=== PATIENT | female | born 1980 | race Caucasian/White ===

== ENCOUNTER 2020-04-14 12:02 | Emergency (ER) | payer MEDICARE, MEDICAID, SELFPAY ==
--- NOTE | ~2020-04-14 | CT_ITS ---
EXAMINATION: CT abdomen pelvis w con DATE: 04/14/2020 14:22 INDICATION: Left upper quadrant abdominal pain TECHNIQUE: Computed tomography (CT) of the abdomen and pelvis was performed with 100 mL Omnipaque-350 intravenous contrast. Automated exposure control and iterative reconstruction technique were employe d. The dose-length product was 491.24 mGy-cm. COMPARISON: 02/20/2018 FINDINGS: Lung bases are clear. Heart size is normal. No pericardial or pleural effusion. Cholecystectomy clips the gallbladder fossa. Liver, spleen, pancreas, right adrenal gland and left kidney are normal. Unch anged 1.3 cm left adrenal adenoma with diagnostic low-attenuation prior noncontrast CT. 6 mm cyst at the mid right kidney. There are few scattered colonic diverticula without adjacent from 3 change to s uggest diverticulitis. Small bowel and appendix are normal. 12 mm nabothian cyst at the cervix. Bladd er, anteverted uterus and bilateral ovaries are unremarkable. Likely bilateral tubal ligation rings a t the adnexa. No free intraperitoneal gas or fluid. No pathologically enlarged abdominal or pelvic ly mphadenopathy. Mild lower thoracic spondylosis. IMPRESSION: 1. No acute intra-abdominal/pelvic process. Reviewed, dictated and finalized at location B.
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
[2020-04-14 12:52] LABS: Basophils Absolute Auto 0.1 K/mm3 (0.0-0.1); Basophils Percent Auto 0.9 % (0.2-1.2); Eosinophils Absolute Auto 0.1 K/mm3 (0-0.3); Eosinophils Percent Auto 1.4 % (0-4.4); Hematocrit 37.7 % (37.0-47.0); Hemoglobin 12.5 g/dL (12.0-15.0); Immature Granulocyte Absolute 0.02 K/mm3 (0.00-0.031); Immature Granulocyte Percent A 0.2 % (0-0.5); Lymphocytes Absolute Auto 2.27 K/mm3 (0.9-3.2); Lymphocytes Percent Auto 25.9 % (18.3-44.2); Mean Corpuscular HGB Conc 33.2 g/dl (32-36); Mean Corpuscular Hemoglobin 30.6 pg (26-34); Mean Corpuscular Volume 92.2 fl (80-100); Mean Platelet Volume 10.3 fl (7.4-10.4); Monocytes Absolute Auto 0.6 K/mm3 (0.1-0.6); Monocytes Percent Auto 7.1 % (2.6-8.5); Neutrophils Absolute Auto 5.7 K/mm3 (1.3-6.7); Neutrophils Percent Auto 64.5 % (45.5-73.1); Platelet Count Result 334 k/mm3 (150-375); Red Blood Count 4.09 M/mm3 (4.2-5.4); Red Cell Distribution Width 14.5 % (11.5-14.5); White Blood Count 8.8 K/mm3 (4.5-10.0)
[2020-04-14 12:54] VITALS: BP 97/65; PULSE 114; RESP 18; TEMP 36.9; O2SAT 100
[2020-04-14] MEDS: SODIUM CHLORIDE 0.9% IV 1,000 ML 999 ML IV CONT (12:54)
[2020-04-14 13:05] LABS: Alanine Aminotransferase 23 U/L (4-35); Albumin Level 4.5 g/dL (3.5-5.1); Alkaline Phosphatase 67 U/L (38-126); Anion Gap 8 mmol/L (8-16); Aspartate Amino Transferase 26 U/L (14-36); Bilirubin,Total 0.4 mg/dL (0.2-1.3); Blood Urea Nitrogen 14 mg/dL (7-17); Calcium 9.2 mg/dL (8.4-10.2); Carbon Dioxide 20 mmol/L (22-30); Chloride 112 mmol/L (98-107); Estimated CRCL calculation 95 ml/min; Estimated Glomerular Filt Rate > 60; Glucose 101 mg/dL (65-105); Lipase 150 U/L (23-300); Potassium 3.8 mmol/L (3.4-5.0); Sodium 140 mmol/L (137-145)
[2020-04-14 13:06] LABS: INR 1.1; Prothrombin Time 13.7 Seconds (11.1-14.7)
[2020-04-14 13:07] LABS: Partial Thromboplastin Time 31.4 SECONDS (22.3-36.8)
[2020-04-14 15:04] LABS: Add Urine Microscopic? YES; Appearance Urine Cloudy (Clear); Bacteria Urine 4+ /hpf; Bilirubin Urine Negative (Negative); Blood Urine 2+ (Negative); Color Urine Yellow (Yellow); Glucose Urine UA Negative (Negative); Ketones Urine Negative (Negative); Leukocyte Esterase Ur 3+ LEU/UL (Negative); Mucus Urine Few /lpf; Nitrate Urine Positive (Negative); Protein Urine 1+ mg/dL (Negative); Squamous Epithelial Cell Urine Many /hpf (Few); Urobilinogen Urine Negative mg/dL (<2.0); WBC Urine 51-75 /hpf
[2020-04-14 15:05] LABS: Specific Grav Ur > 1.060 (1.001-1.035)
[2020-04-14] MEDS: DICYCLOMINE HCL 10 MG CAPSULE 20 MG PO (15:10)
[2020-04-14 15:29] LABS: Amphetamine Screen Urine Negative (Negative); Barbiturate Screen Urine Negative (Negative); Benzodiazepines Screen Urine Negative (Negative); Cannabinoid Screen Urine Positive (Negative); Cocaine Screen Urine Negative (Negative); Methadone Screen Urine Negative (Negative); Opiate Screen Urine Negative (Negative); Phencyclidine Screen Urine Negative (Negative)
== END 2020-04-14 15:12 | disposition home or self-care (01) ==
PROVIDERS: Emergency Provider Emergency Medicine; PCP Family Medicine
DX: R10.12 Left upper quadrant pain (principal); M79.7 Fibromyalgia
CPT/HCPCS: 36415; 74177; 80053; 80307; 81001; 81025; 83690; 85025; 85610; 85730; 87077; 87086; 87088; 87186; 96360; 96361; 99284; A9270; J7030; Q9967

== ENCOUNTER 2021-01-12 12:08 | Emergency (ER) | payer MEDICARE, MEDICAID, SELFPAY ==
[2021-01-12 12:14] VITALS: BP 102/70; PULSE 114; RESP 16; TEMP 36.2; O2SAT 100
[2021-01-12 12:33] LABS: Basophils Absolute Auto 0.1 K/mm3 (0.0-0.1); Basophils Percent Auto 0.8 % (0.2-1.2); Eosinophils Absolute Auto 0.3 K/mm3 (0-0.3); Eosinophils Percent Auto 1.9 % (0-4.4); Hematocrit 35.2 % (37.0-47.0); Hemoglobin 11.3 g/dL (12.0-15.0); Immature Granulocyte Absolute 0.07 K/mm3 (0.00-0.031); Immature Granulocyte Percent A 0.5 % (0-0.5); Lymphocytes Absolute Auto 2.19 K/mm3 (0.9-3.2); Lymphocytes Percent Auto 15.6 % (18.3-44.2); Mean Corpuscular HGB Conc 32.1 g/dl (32-36); Mean Corpuscular Hemoglobin 28.2 pg (26-34); Mean Corpuscular Volume 87.8 fl (80-100); Mean Platelet Volume 10.7 fl (7.4-10.4); Monocytes Percent Auto 6.9 % (2.6-8.5); Neutrophils Absolute Auto 10.4 K/mm3 (1.3-6.7); Neutrophils Percent Auto 74.3 % (45.5-73.1); Platelet Count Result 448 k/mm3 (150-375); Red Blood Count 4.01 M/mm3 (4.2-5.4)
[2021-01-12 12:43] LABS: Alanine Aminotransferase 13 U/L (4-35); Albumin Level 4.4 g/dL (3.5-5.1); Alkaline Phosphatase 81 U/L (38-126); Anion Gap 12 mmol/L (8-16); Aspartate Amino Transferase 20 U/L (14-36); Bilirubin,Total 0.5 mg/dL (0.2-1.3); Blood Urea Nitrogen 12 mg/dL (7-17); Calcium 9.8 mg/dL (8.4-10.2); Carbon Dioxide 19 mmol/L (22-30); Chloride 111 mmol/L (98-107); Estimated CRCL calculation 94 ml/min; Estimated Glomerular Filt Rate > 60; Glucose 99 mg/dL (65-105); Lipase 78 U/L (23-300); Potassium 3.9 mmol/L (3.4-5.0); Sodium 142 mmol/L (137-145)
[2021-01-12 13:55] VITALS: BP 110/45; PULSE 104; RESP 17; TEMP 36.4; O2SAT 100
[2021-01-12 15:12] LABS: Add Urine Microscopic? YES; Appearance Urine Cloudy (Clear); Bacteria Urine Trace /hpf; Bilirubin Urine Negative (Negative); Blood Urine 1+ (Negative); Color Urine Amber (Yellow); Glucose Urine UA Negative (Negative); Ketones Urine Negative (Negative); Leukocyte Esterase Ur 2+ LEU/UL (Negative); Mucus Urine Few /lpf; Nitrate Urine Positive (Negative); Protein Urine 2+ mg/dL (Negative); Specific Grav Ur 1.024 (1.001-1.035); Squamous Epithelial Cell Urine Few /hpf (Few); WBC Urine >75 /hpf
[2021-01-12] MEDS: ONDANSETRON INJ 4 MG/2 ML VIAL IV PUSH (16:18)
[2021-01-12] MEDS: LACTATED RINGERS 1,000 ML 999 ML IV CONT (16:19)
--- NOTE | 2021-01-12 17:01 | ED.ABDPAIN ---
HPI - Abdominal Pain General Chief Complaint: Abdominal Pain Stated Complaint: n/v Time Seen by Provider: 01/12/21 14:41 Source: patient Mode of arrival: ambulatory Limitations: no limitations History of Present Illness HPI narrative: 40-year-old female She complains of being ill for about a week She initially had nausea and vomiting for about 3days which is resolved however she still has a poor appetite feels generally unwell and has some end of diffuse right-sided abdominal discomfort She has previously had a cholecystectomy She does not have diarrhea or constipation, she does not have hematuria, she does not have dysuria, and she does not have a fever Related Data Allergies Allergy/AdvReac Type Severity Reaction Status Date / Time morphine Allergy Unknown Verified 02/26/18 12:15 Review of Systems Review of Systems: All systems reviewed & are unremarkable except as noted in HPI and below Constitutional: Constitutional: Reports no additional constitutional complaints, Denies chills, Reports fatigue, Denies fever(s), Denies headache(s) and Reports weakness Eyes: Eyes: Reports no additional eye complaints and Denies change in vision ENT: Denies headache(s) and Denies sore throat Cardiovascular: Cardiovascular: Denies chest pain and Denies dyspnea Respiratory: Respiratory: Denies cough and Denies dyspnea Gastrointestinal: Gastrointestinal: Reports abdominal pain, Denies diarrhea, Reports nausea and Reports vomiting Genitourinary: Genitourinary: Denies hematuria, Denies urinary frequency and Denies dysuria Musculoskeletal: Musculoskeletal: Denies deformity, Denies arthralgias, Denies joint swelling and Denies numbness Integumentary/Breasts: Skin/Breast: Denies rash and Denies wounds Neurologic: Denies headache(s), Denies focal weakness and Denies numbness Psychiatric: Psychiatric: Reports no additional psychiatric complaints Endocrine: Endocrine: Reports no additional endocrine complaints Hematologic/Lymphatic: Hematologic/Lymphatic: Reports no additional hematologic/lymphatic complaints Allergic/Immunologic: Allergic/Immunologic: Reports no additional allergic/immunologic complaints [facility] Past Medical History Medical History (Updated 01/12/21 @ 17:05 by Adan Melendez MD) Depression with anxiety Fibromyalgia Surgical History Surgical History Hx of cholecystectomy Social History Social History Gender identity (if verbalized by the patient): Female Exam Const: General: cooperative, healthy appearing, no acute distress and alert Orientation/consciousness: patient oriented x3 (alert) HENMT: Head: normal to inspection, normocephalic and atraumatic Ears: external ears normal General nose exam: no epistaxis Eyes: Conjunctivae: conjunctivae normal EOM: EOMs intact bilaterally Neck: Neck: normal visual inspection, supple and no JVD Resp: Effort & Inspection: normal respiratory effort Auscultation: clear to auscultation bilaterally and other (BS =) Cardio: Rate: regular rate Rhythm: regular rhythm Heart sounds: no murmurs GI: GI Palp: Yes Soft to palpation, Yes Tenderness to palpation present (GI) (Right upper quadrant subcostal ), No Guarding due to palpation present (GI) and No Rebound tenderness present : General: Yes CVA tenderness (Pretty mild right-sided CVA tenderness) Skin: General skin exam: normal color and no rashes or lesions noted Neuro: General: patient oriented x3 (alert) and moves all extremities Speech: normal speech Extrem: General: normal to inspection and no pedal edema Psych: Affect: normal affect Course Course Emergency Course: Examined evaluation most consistent with pyelonephritis Improved after treatment, able to keep down p.o.'s, should be okay for outpatient treatment Vital Signs Vital signs: Vital Signs Temperature 36.2 C L 06/
[2021-01-12 17:17] VITALS: BP 115/64; PULSE 88; RESP 17; O2SAT 100
== END 2021-01-12 17:20 | disposition home or self-care (01) ==
PROVIDERS: Emergency Medicine; Emergency Provider Emergency Medicine; PCP Family Medicine
DX: N12 Tubulo-interstitial nephritis, not specified as acute or chronic (principal); M79.7 Fibromyalgia
CPT/HCPCS: 36415; 80053; 81001; 81025; 83690; 85025; 87086; 87088; 96365; 96375; 99284; J0696; J2405; J7120

== ENCOUNTER 2021-04-03 11:45 | Outpatient (CLI) | payer OTHER, SELFPAY ==
--- NOTE | ~2021-04-03 | XR_ITS ---
EXAMINATION: XR abdomen obstructive series DATE: 04/03/2021 12:22 INDICATION: Right abdominal pain. TECHNIQUE: Upright and supine views of the abdomen on 3 radiographs were obtained. COMPARISON: CT abdomen and pelvis 04/14/2020 FINDINGS: There are no dilated loops of bowel. There is a large volume of stool in the colon. No free intraperitoneal gas. Surgical clips in the right upper quadrant are likely from cholecystectomy. IMPRESSION: 1. Nonobstructive bowel gas pattern. Reviewed, dictated and finalized at location A.
--- NOTE | ~2021-04-03 | XR_ITS ---
EXAMINATION: XR chest 2V DATE: 04/03/2021 12:22 INDICATION: Chest pain. Abdominal pain. TECHNIQUE: Frontal and lateral views of the chest were obtained. COMPARISON: Chest 2 views 02/20/2018, CT abdomen and pelvis 04/14/2020 FINDINGS: The chest demonstrates clear lungs without pneumonia, pleural effusion, or pneumothorax. Th e heart size is normal. Surgical clips in the right upper quadrant are likely from cholecystectomy. IMPRESSION: 1. No acute cardiopulmonary disease. Reviewed, dictated and finalized at location A.
== END 2021-04-03 11:46 | disposition home or self-care (01) ==
PROVIDERS: PCP Family Medicine; Visit Provider Family Medicine
DX: R10.9 Unspecified abdominal pain (principal); R07.9 Chest pain, unspecified
CPT/HCPCS: 71046; 74019

== ENCOUNTER 2022-06-28 11:51 | Outpatient (CLI) | payer MEDICAID, SELFPAY ==
--- NOTE | ~2022-06-28 | MMUS_ITS ---
EXAMINATION: MM diagnostic turner RT w luz, US breast RT complete HISTORY: Palpable right periareolar breast abnormality. TECHNIQUE: Additional 3-D tomosynthesis images of the right breast were performed and synthetic 2-D i mages were generated. CAD analysis was submitted and interpreted. High resolution complete right elio st ultrasound was performed. COMPARISON: None BREAST PARENCHYMAL COMPOSITION: The breasts are heterogeneously dense, which may obscure small masses FINDINGS: MAMMOGRAPHIC FINDINGS: There are no suspicious masses, calcifications or architectural distortion in the right breast to sug gest malignancy. ULTRASOUND: Complete right breast US of all 4 quadrants of the breasts and retroareolar region was reviewed. Norm al heterogeneous echotexture without focal solid or cystic mass. IMPRESSION: 1. No evidence for malignancy in the right breast. 2. Routine yearly screening mammogram and regular clinical breast examination are recommended. BI-RADS Category 1: Negative Reviewed, dictated and finalized at location A. MAKER IMPRESSION: 1. No evidence for malignancy in the right breast. 2. Routine yearly screening mammogram and regular clinical breast examination a re recommended. BI-RADS Category 1: Negative
== END 2022-06-28 11:52 | disposition home or self-care (01) ==
PROVIDERS: PCP Family Medicine; Visit Provider Family Medicine
DX: N63.10 Unspecified lump in the right breast, unspecified quadrant (principal)
CPT/HCPCS: 76641; 77061; 77065; G0279

== ENCOUNTER 2023-02-06 13:58 | Outpatient (CLI) | payer OTHER, SELFPAY ==
--- NOTE | ~2023-02-06 | CT_ITS ---
EXAMINATION: CT abdomen wo con DATE: 02/06/2023 14:47 INDICATION: Left adrenal mass TECHNIQUE: Computed tomography (CT) of the abdomen was performed without intravenous contrast. The do se-length product (DLP) was 262.34 mGy-cm. Automated exposure control and iterative reconstruction te nique were employed. COMPARISON: 04/14/2020 FINDINGS: The lung bases are clear. The heart size is normal. The liver, spleen, pancreas, and right adrenal gland are normal. There is a stable 1.4 cm low-attenuation mass of the left adrenal gland, co nsistent with an adenoma. The gallbladder is surgically absent. The kidneys are unremarkable. There a re no pathologically enlarged abdominal lymph nodes. A moderate volume of colonic stool is present. IMPRESSION: 1. Stable left adrenal adenoma. Reviewed, dictated and finalized at location []
== END 2023-02-06 13:59 | disposition home or self-care (01) ==
PROVIDERS: PCP Family Medicine; Visit Provider Family Medicine
DX: E27.8 Other specified disorders of adrenal gland (principal); D35.02 Benign neoplasm of left adrenal gland
CPT/HCPCS: 74150

== ENCOUNTER 2024-01-22 17:13 | Observation (INO) | payer OTHER, SELFPAY ==
--- NOTE | ~2024-01-22 | CT_ITS ---
CT abdomen pelvis wo con Ordering provider: Ara Moya PA-C History: . concern for L kidney stone . Comparison: February 06, 2023 Technique: CT abdomen without IV and without oral contrast. Radiation reduction technique utilized. Findings: VISUALIZED LOWER CHEST: Normal. UPPER ABDOMINAL ORGANS: Liver: Normal. Gallbladder: Status post cholecystectomy.Minimal fat stranding anterior and inferior to the duodenum with adjacent slightly enlarged lymph nodes Spleen: Normal. Stomach/duodenum: Normal. Pancreas: Hypodense lesion in the body of the pancreas measuring 9.8 x 2.1 cm. Follow-up advised. Adrenals: Left adrenal adenoma measuring 2 x 1.6 cm. Kidneys: Tiny stone in the right kidney upper pole. Urinary bladder: Underfilled. Uterus: Normal. VISUALIZED BOWEL AND MESENTERY: No evidence of diverticulitis. Normal appendix. The bowel is otherwis e normal. No free air or free fluid. Small mesenteric lymph nodes are noted. RETROPERITONEUM: Normal aorta. No retroperitoneal lymphadenopathy. MUSCULOSKELETAL: The superficial soft tissues are normal. Normal spine. IMPRESSION: Fat stranding anterior to the duodenum and inferior to the stomach which may indicate duodenitis, duo denal ulcer or pancreatitis. Clinical evaluation advised. Hypodense lesion in the body of the pancreas. MRI evaluation advised. Left adrenal adenoma. Unchanged from previous examination. Tiny stone in the right kidney upper pole. Reviewed, dictated and finalized at location A. IMPRESSION: Fat stranding anterior to the duodenum and inferior to the stomach which may in dicate duodenitis, duodenal ulcer or pancreatitis. Clinical evaluation advised. Hypodense lesion in the body of the pancreas. MRI evaluation advised. Left adrenal adenoma. Unchanged from previous examination. Tiny stone in the right kidney upper pole.
--- NOTE | ~2024-01-22 | MR_ITS ---
EXAMINATION: MR MRCP wo/w con/w 3D wo ind DATE: 01/23/2024 14:15 INDICATION: Pancreatic lesion on CT TECHNIQUE: Magnetic resonance imaging (MRI) of the abdomen was performed without and with 15 mL Multi sun intravenous contrast. Sequences included coronal T2-weighted SS-FSE, coronal T2-weighted FS SS- FSE, coronal T2-weighted FS FIESTA, axial T2-weighted FS FIESTA, axial T2-weighted FIESTA, sagittal T 2-weighted SS-FSE, axial T1-weighted dual-echo FSPGR, axial T2-weighted SS-FSE, axial T1-weighted LAV A, axial T2-weighted STIR FSE. Thick-slab T2-weighted FRFSE-XL images were obtained for magnetic reso nance cholangiopancreatography (MRCP). Rotating maximum intensity projection 3-D reconstructions of t he volumetric data were created by the technologist. Postcontrast sequences included a time course of axial T1-weighted LAVA. COMPARISON: CT dated 01/22/2024 FINDINGS: ABDOMEN MRI: Heart size is normal. No pericardial or pleural effusion. Magnetic field artifact associated with cho lecystectomy clips at the gallbladder fossa. Liver, spleen and right adrenal gland are normal. 1.8 cm left adrenal adenoma as demonstrated by ultrasound lipid with signal dropout on opposed phase imagin g. Bilateral kidneys are normal. Pancreas is normal. No correlate for the hypodense region in the bod y of the pancreas seen on prior CT which when correlated with sagittal and coronal images appears to result from a band of streak artifact. Bladder, uterus and bowels are normal including a normal appen connor. No pathologically enlarged abdominal or pelvic lymphadenopathy. T1 hyperintense fat saturating h emangioma at T11. Otherwise normal bone marrow signal throughout. ABDOMEN MRCP: Normal caliber common bile duct measuring 6 mm in maximal diameter. The intrahepatic biliary tree is also normal. No evident choledocholithiasis. IMPRESSION: 1. Normal pancreas. No correlate for the hypodense lesion on prior CT which on review of the coronal and sagittal reconstructed images appears most likely to represent a band of streak artifact. Reviewed, dictated and finalized at location A.
[2024-01-22 17:16] VITALS: BP 121/57; PULSE 104; RESP 20; TEMP 36.4; O2SAT 100
[2024-01-22 17:34] LABS: Basophils Absolute Auto 0.1 K/mm3 (0.0-0.1); Basophils Percent Auto 0.7 % (0.2-1.2); Eosinophils Absolute Auto 0.1 K/mm3 (0-0.3); Hematocrit 30.5 % (37.0-47.0); Hemoglobin 9.2 g/dL (12.0-15.0); Immature Granulocyte Absolute 0.05 K/mm3 (0.00-0.031); Immature Granulocyte Percent A 0.3 % (0-0.5); Lymphocytes Absolute Auto 4.34 K/mm3 (0.9-3.2); Lymphocytes Percent Auto 30.3 % (18.3-44.2); Mean Corpuscular HGB Conc 30.2 g/dl (32-36); Mean Corpuscular Hemoglobin 22.9 pg (26-34); Mean Corpuscular Volume 75.9 fl (80-100); Mean Platelet Volume 10.3 fl (7.4-10.4); Monocytes Absolute Auto 1.2 K/mm3 (0.1-0.6); Monocytes Percent Auto 8.2 % (2.6-8.5); Neutrophils Absolute Auto 8.5 K/mm3 (1.3-6.7); Neutrophils Percent Auto 59.5 % (45.5-73.1); Platelet Count Result 579 k/mm3 (150-375); Red Blood Count 4.02 M/mm3 (4.2-5.4); Red Cell Distribution Width 21.4 % (11.5-14.5); White Blood Count 14.3 K/mm3 (4.5-10.0)
[2024-01-22 17:45] LABS: Alanine Aminotransferase 11 U/L (6-35); Albumin Level 4.5 g/dL (3.5-5.1); Alkaline Phosphatase 76 U/L (38-126); Anion Gap 13 mmol/L (4-12); Aspartate Amino Transferase 17 U/L (14-36); Bilirubin,Total 0.4 mg/dL (0.2-1.3); Blood Urea Nitrogen 12 mg/dL (7-17); Calcium 9.6 mg/dL (8.4-10.2); Carbon Dioxide 17 mmol/L (22-30); Chloride 112 mmol/L (98-107); Estimated CRCL calculation 91 ml/min; Estimated Glomerular Filt Rate > 60; Glucose 104 mg/dL (65-110); Lipase 158 U/L (23-300); Potassium 3.1 mmol/L (3.4-5.0); Sodium 142 mmol/L (137-145)
--- NOTE | 2024-01-22 18:13 | ED.ABDPAIN ---
HPI - Abdominal Pain General Chief Complaint: Urogenital-Female <Ara Moya PA-C - Last Filed: 01/22/24 21:57> Stated Complaint: abd pain, UTI symptoms <Ara Moya PA-C - Last Filed: 01/22/24 21:57> Time Seen by Provider: 01/22/24 17:29 <Ara Moya PA-C - Last Filed: 01/22/24 21:57> History of Present Illness HPI narrative: 43-year-old female with a history of fibromyalgia, hypokalemia, depression, anxiety and kidney stones presents to the emergency department for low back pain, urinary frequency and urinary urgency. Patient states she has had frequency and urgency for about a week. She called her PCP and was prescribed Macrobid which she has been taking since 01/13 without improvement. Yesterday and today she began developing significant pain in her left flank which prompted her to come to the ED today. States she thinks she may have a kidney stone. She is currently on her menstrual cycle. She denies dysuria, known fever but does report chills and sweats secondary to pain. Is reporting some pain in the left upper quadrant of her abdomen as well. She is complaining of nausea but no emesis. <Ara Moya PA-C - Last Filed: 01/22/24 21:57> Related Data Home Medications: Home Medications Medication Instructions Recorded Confirmed alprazolam 1 mg tablet 1 mg PO QID PRN Anxiety 01/22/24 01/22/24 amitriptyline 50 mg tablet 50 mg PO DAILY 01/22/24 01/22/24 odachwn-vabkzzsxtesmy-wgjgssmm 250 1 tablet PO Q4-6H PRN migrane 01/22/24 01/22/24 mg-250 mg-65 mg tablet (Excedrin Migraine) cyclobenzaprine 10 mg tablet 10 mg PO TID 01/22/24 01/22/24 famotidine 40 mg tablet (Pepcid) 40 mg PO DAILY 01/22/24 01/22/24 fluoxetine 40 mg capsule 40 mg PO DAILY 01/22/24 01/22/24 hydrocodone 5 mg-acetaminophen 325 5 - 325 tablet PO BID PRN Pain 01/22/24 01/22/24 mg tablet <Ara Moya PA-C - Last Filed: 01/22/24 21:57> Allergies/Adverse Reactions: Allergies Allergy/AdvReac Type Severity Reaction Status Date / Time morphine Allergy Unknown Verified 02/26/18 12:15 <Ara Moya PA-C - Last Filed: 01/22/24 21:57> Review of Systems Review of Systems: CONSTITUTIONAL: Denies fever, chills, or sweats. EYES: Denies visual changes, redness, or discharge. ENT: Denies rhinorrhea, congestion, sore throat, or otalgia. CARDIOVASCULAR: Denies chest pain, palpitations, or edema. RESPIRATORY: Denies cough or dyspnea. GASTROINTESTINAL: See HPI GENITOURINARY: see HPI SKIN: Denies rash or itching. MUSCULOSKELETAL: Denies back pain, joint pain, or myalgia. NEUROLOGIC: Denies headache, numbness, or weakness. PSYCHIATRIC: Denies anxiety or depression. <Ara Moya PA-C - Last Filed: 01/22/24 21:57> [facility] Past Medical History Medical History: Medical History (Updated 01/23/24 @ 10:51 by Angelica Peña APRN) Depression with anxiety Fibromyalgia <Ara Moya PA-C - Last Filed: 01/22/24 21:57> Surgical History Surgical History: Surgical History Hx of cholecystectomy <Ara Moya PA-C - Last Filed: 01/22/24 21:57> Social History Social History: Social History Smoking packs per day: 0.5 Smoking cigarettes per day: 10.0 Smoking status: Current every day smoker Tobacco type: cigarettes Alcohol intake: never Substance use: current Substance use type: marijuana Last use: 01/22/24 Do You Feel Safe in your Home?: Yes Lack of Transportation: No Lack of Food: Never True Current Housing: I Have Housing Concerned About Future Housing: No Difficulty Paying Gas/Electric Bills: No Difficulty Paying for Meds: No Currently Unemployed: No Education: Trade/Vocational Certificate Difficulty w/ Childcare or Family Care: No Gender identity (if verbalized by the patient): Female Spi
[2024-01-22 18:27] LABS: Magnesium 1.9 mg/dL (1.6-2.3)
[2024-01-22] MEDS: HYDROmorphone HCL INJ (*CRX) 1 MG/ML SYR IV PUSH (18:27)
[2024-01-22] MEDS: SODIUM CHLORIDE 0.9% IV 1,000 ML 999 ML IV CONT (18:27)
[2024-01-22] MEDS: ONDANSETRON INJ 4 MG/2 ML VIAL IV PUSH (18:27)
[2024-01-22 18:31] LABS: Appearance Urine Cloudy (Clear); Bacteria Urine None Seen /hpf; Bilirubin Urine Negative (Negative); Blood Urine 3+ (Negative); Glucose Urine UA Negative (Negative); Ketones Urine Negative (Negative); Leukocyte Esterase Ur 2+ LEU/UL (Negative); Need Manual Microscopic Reviewed; Nitrate Urine Negative (Negative); Non Pathogenic Casts 0-2; Protein Urine 1+ mg/dL (Negative); RBC Urine >100 /hpf (0-2); Specific Grav Ur 1.013 (1.001-1.035); Squamous Epithelial Cell Urine None Seen /hpf (Few); Urobilinogen Urine 0.2 mg/dL (<2.0); WBC Urine 51-100 /hpf (0-3)
[2024-01-22 18:33] LABS: Add Urine Microscopic? YES; Color Urine Light Red (Yellow)
[2024-01-22 19:31] VITALS: BP 126/68; PULSE 68; RESP 18; O2SAT 98
[2024-01-22 20:46] VITALS: BP 135/62; PULSE 84; RESP 16; O2SAT 97
[2024-01-22] MEDS: POTASSIUM CHLORIDE INJ 40 MEQ in SODIUM CHLORIDE 0.9% IV 500 ML 130 MEQ IVPB (21:24)
[2024-01-22] MEDS: PANTOPRAZOLE SODIUM IV 40 MG VIAL IV PUSH ×2 (21:25→22:14)
[2024-01-22 21:36] VITALS: BP 126/60; PULSE 88; RESP 14; O2SAT 99
[2024-01-22 21:40] LABS: Lactic Acid Reflex 0.8 mmol/L (0.7-2.0)
--- NOTE | 2024-01-22 21:55 | PM.IMHP ---
H&P: HPI History of Present Illness Date/Time: 01/22/24 21:55 Chief Complaint: epigastric pain Narrative: this is a 43-year-old female with past medical history significant for fibromyalgia, depression with anxiety, tobacco dependence. Patient presents to the emergency room with epigastric pain for several months now states that for days out of the week she is in pain, she denies any nausea vomiting she denies any coffee-ground emesis hematemesis bright red blood per rectum or melena pain is localized in the epigastric area with radiation to the back patient has had significant weight loss of roughly 30 lb in a month or so due to per poor per orally intake due to abdominal pain. Preliminary workup was significant for CT of abdomen and pelvis with duodenitis. Urinalysis was significant for numerous WBCs 50-100 per high-power field. Patient is been admitted for further evaluation management and treatment. CT abdomen pelvis wo con Ordering provider: Ara Moya PA-C History: . concern for L kidney stone . Comparison: February 06, 2023 Technique: CT abdomen without IV and without oral contrast. Radiation reduction technique utilized. Findings: VISUALIZED LOWER CHEST: Normal. UPPER ABDOMINAL ORGANS: Liver: Normal. Gallbladder: Status post cholecystectomy.Minimal fat stranding anterior and inferior to the duodenum with adjacent slightly enlarged lymph nodes Spleen: Normal. Stomach/duodenum: Normal. Pancreas: Hypodense lesion in the body of the pancreas measuring 9.8 x 2.1 cm. Follow-up advised. Adrenals: Left adrenal adenoma measuring 2 x 1.6 cm. Kidneys: Tiny stone in the right kidney upper pole. Urinary bladder: Underfilled. Uterus: Normal. VISUALIZED BOWEL AND MESENTERY: No evidence of diverticulitis. Normal appendix. The bowel is otherwise normal. No free air or free fluid. Small mesenteric lymph nodes are noted. RETROPERITONEUM: Normal aorta. No retroperitoneal lymphadenopathy. MUSCULOSKELETAL: The superficial soft tissues are normal. Normal spine. IMPRESSION: Fat stranding anterior to the duodenum and inferior to the stomach which may indicate duodenitis, duodenal ulcer or pancreatitis. Clinical evaluation advised. Hypodense lesion in the body of the pancreas. MRI evaluation advised. Left adrenal adenoma. Unchanged from previous examination. Tiny stone in the right kidney upper pole. Review of Systems Review of Systems: epigastric pain with radiation to the back, weight loss. Constitutional: Constitutional: Denies chills, Reports fatigue, Denies fever(s), Denies night sweats, Reports poor appetite, Reports weakness and Reports weight loss Eyes: Eyes: Denies change in vision ENT: Denies dysphagia, Denies vertigo, Denies dizziness, Denies nasal congestion, Denies nasal discharge and Denies odynophagia Cardiovascular: Cardiovascular: Denies chest pain, Denies radiating jaw, neck or arm pain and Denies palpitations Respiratory: Respiratory: Denies cough, Denies excessive phlegm production and Denies dyspnea Gastrointestinal: Gastrointestinal: Reports abdominal pain, Denies melena, Denies hematochezia, Denies coffee ground emesis, Denies dyspepsia, Denies heartburn, Denies diarrhea, Denies nausea and Denies vomiting Genitourinary: Genitourinary: Denies dysuria Musculoskeletal: Musculoskeletal: Denies myalgias Integumentary/Breasts: Skin/Breast: Reports system reviewed and no additional complaints, except as docu and Reports as per HPI Neurologic: Denies focal weakness and Denies Sensory deficit (Neuro) Psychiatric: Psychiatric: Reports no additional psychiatric complaints and Reports as per HPI Endocrine: Endocrine: Denies cold intolerance, Denies heat intolerance, Denies polyphagia, Denies polydipsia and Denies polyuria Hematologic/Lymphatic: Hematologic/Lymphatic: Reports no additional hematologic/lymphatic complaints and Reports as per HPI Allergic/Immunologic: Allergic/Immunologic: Re
[2024-01-22 22:46] VITALS: PULSE 79; RESP 14; O2SAT 100
[2024-01-22 23:23] VITALS: BP 124/77; PULSE 75; RESP 16; TEMP 36.6; O2SAT 99
--- NOTE | 2024-01-22 23:26 | ADMGEN ---
This patient, Corina Johnson, was admitted to 3 [facility] Surg Room 312-01. Patient/family oriented to hospital policies and general routines including ID bracelet, bed and alarms, visiting hours, pain management, procedures, bathroom and other care routines, personal items, smoking policy, room service/diet, and visiting hours. Information on how to activate the Rapid Response Team has been discussed. Patient/Family are encouraged to report perceived risks to care and to ask questions if they do not understand what they are told or what they should do.
[2024-01-22] MEDS: SODIUM CHLORIDE 0.9% IV 1,000 ML 100 ML IV CONT (23:46)
[2024-01-23] VITALS (11 sets, daily range): BP systolic 104–132; BP diastolic 56–82; PULSE 75–100; RESP 12–18; TEMP 35.9–36.7; O2SAT 97–100; BMI 25.5
[2024-01-23] MEDS: HYDROmorphone HCL INJ (*CRX) 1 MG/ML SYR IV PUSH ×4 (02:10→20:05)
--- NOTE | 2024-01-23 08:24 | PM.IMPN ---
Progress Note: A&P Assessment and Plan (1) Pancreatic lesion: Code(s): K86.9 - Disease of pancreas, unspecified Status: Acute (2) Duodenitis: Code(s): K29.80 - Duodenitis without bleeding Status: Acute (3) Abnormal digestive system diagnostic imaging: Code(s): R93.3 - Abnormal findings on diagnostic imaging of other parts of digestive tract Status: Acute (4) UTI (urinary tract infection): Qualifiers: Hematuria presence: with hematuria Urinary tract infection type: acute cystitis Qualified Code(s): N30.01 - Acute cystitis with hematuria Code(s): N39.0 - Urinary tract infection, site not specified Status: Acute (5) Abdominal pain, LUQ: Code(s): R10.12 - Left upper quadrant pain Status: Acute Plan Abdominal pain/left flank pain. Mild leukocytosis and anemia urinalysis with WBC and RBC the patient on menstrual cycle. CT abdomen with hypodense lesion body of pancreas. Fat stranding anterior to the duodenum and inferior may be duodenitis duodenal ulcer out pancreatitis. GI consult will get MRI to evaluate for the pancreatic lesion. Lipase normal. On ceftriaxone and IV fluid and PPI.Worsening anemia change PPI to twice a day. Stool occult blood was positive. GI consulted Left adrenal adenoma stable Subjective Date/time seen: 01/23/24 08:24 Interval history: Abdominal pain/left flank pain. Mild leukocytosis and anemia urinalysis with S RBC the patient on menstrual cycle. CT abdomen with hypodense lesion body of pancreas. Fat stranding anterior to the duodenum and inferior may be duodenitis duodenal ulcer out pancreatitis. A consult will get MRI to evaluate for the pancreatic lesion. Lipase normal. On ceftriaxone and IV fluid and PPI. Left adrenal adenoma stable Review of Systems Review of Systems: All systems reviewed & are unremarkable except as noted in HPI and below Exam Narrative: GENERAL: Alert and oriented not in acute distress HEAD: Normocephalic, atraumatic. EYES: PERRLA and EOMI. ENT: Nares clear, no rhinorrhea or epistaxis. Mucous membranes moist. NECK: Supple. CHEST: Clear to auscultation. No respiratory distress. HEART: Regular rate and rhythm. No murmur heard. Normal peripheral pulses. ABDOMEN: Soft, nontender, nondistended, normal active bowel sounds. No rebound, guarding rigidity. Left CVA tenderness without overlying skin changes. EXTREMITIES: Normal range of motion. No edema. SKIN: Warm, dry, no rash. NEURO: No focal deficits. Alert and oriented x3 Objective Data Vital Signs Vital Signs: Vital Signs - 24 hr 01/22/24 17:16 01/22/24 19:31 01/22/24 20:46 Temperature 97.6 F Pulse Rate 104 H 68 84 Respiratory Rate 20 18 16 Blood Pressure 121/57 L 126/68 135/62 Pulse Oximetry 100 98 97 Oxygen Delivery Room Air 01/22/24 21:36 01/22/24 22:46 01/22/24 23:23 Temperature 97.8 F Pulse Rate 88 79 75 Respiratory Rate 14 14 16 Blood Pressure 126/60 124/77 Pulse Oximetry 99 100 99 Oxygen Delivery 01/23/24 04:33 01/23/24 04:00 01/23/24 00:00 Temperature Pulse Rate 85 77 Respiratory Rate Blood Pressure Pulse Oximetry Oxygen Delivery Room Air 01/23/24 06:00 Temperature 98.1 F Pulse Rate 78 Respiratory Rate 16 Blood Pressure 104/56 L Pulse Oximetry 97 Oxygen Delivery Intake/Output Intake/Output: Intake & Output 01/20/24 01/21/24 01/22/24 01/23/24 23:59 23:59 23:59 23:59 Intake Total 1050 Balance 1050 Meds/Results Medications: Active Medications Generic Name Dose Route Start Last Admin Trade Name Freq PRN Reason Stop Dose Admin Acetaminophen/Aspirin/Caffeine 1 tablet 01/23/24 01:59 Acetaminophen/Aspirin/Caffeine 250-250-65 Mg Tablet PO Q4-6H PRN migrane Hydrocodone Bitart/Acetaminophen 5 - 325 tab 01/23/24 01:59 Hydrocodone/Acetaminophen (*Crx) 5-325 Mg Tablet PO BID PRN Pain Alprazolam 1 mg 01/23/24 01:59
[2024-01-23] MEDS: FLUoxetine HCL 20 MG CAPSULE 40 MG PO (08:58)
[2024-01-23] MEDS: AMITRIPTYLINE HCL 25 MG TABLET 50 MG PO (08:59)
[2024-01-23] MEDS: FAMOTIDINE 20 MG TABLET 40 MG PO (08:59)
[2024-01-23] MEDS: CYCLOBENZAPRINE HCL 10 MG TABLET PO ×3 (08:59→18:41)
[2024-01-23] MEDS: PANTOPRAZOLE SODIUM IV 40 MG VIAL IV PUSH ×2 (09:00→20:05)
[2024-01-23] MEDS: SODIUM CHLORIDE 0.9% IV 1,000 ML 100 ML IV CONT (09:02)
--- NOTE | 2024-01-23 09:26 | WPDGICN ---
Assessment and Plan Assessment and plan (1) Epigastric pain: Code(s): R10.13 - Epigastric pain Status: Acute (2) Abdominal pain, LUQ: Code(s): R10.12 - Left upper quadrant pain Status: Acute (3) Abnormal digestive system diagnostic imaging: Code(s): R93.3 - Abnormal findings on diagnostic imaging of other parts of digestive tract Status: Acute (4) Duodenitis: Code(s): K29.80 - Duodenitis without bleeding Status: Acute (5) Microcytic anemia: Code(s): D50.9 - Iron deficiency anemia, unspecified Status: Acute (6) Pancreatic lesion: Code(s): K86.9 - Disease of pancreas, unspecified Status: Acute (7) Nausea: Code(s): R11.0 - Nausea Status: Acute (8) Weight loss: Code(s): R63.4 - Abnormal weight loss Status: Acute (9) Early satiety: Code(s): R68.81 - Early satiety Status: Acute (10) Acid reflux: Qualifiers: Esophagitis presence: esophagitis presence not specified Qualified Code(s): K21.9 - Gastro-esophageal reflux disease without esophagitis Code(s): K21.9 - Gastro-esophageal reflux disease without esophagitis Status: Acute (11) Melena: Code(s): K92.1 - Melena Status: Acute (12) Appetite loss: Code(s): R63.0 - Anorexia Status: Acute (13) Fecal incontinence: Qualifiers: Fecal incontinence type: fecal urgency Qualified Code(s): R15.9 - Full incontinence of feces; R15.2 - Fecal urgency Code(s): R15.9 - Full incontinence of feces Status: Acute Plan 1) Epigastric pain/ left upper quadrant pain/ abnormal imaging digestive/duodenitis /nausea/ early satiety / appetite loss/weight loss: S/P CCX. Per patient last EGD performed 1-2 years ago and she states that she was told that she had ulcers but was never started on treatment. Patient was unable to say where this EGD was performed. patient complains of epigastric and left upper quadrant abdominal pain that she describes as stabby, crampy and constant pain that has been occurring for a few months but has been worse over the past few days. She has intermittent nausea that typically accompanies this pain but denies any vomiting. She is having frequent reflux despite the use of Pepcid. She admits to early satiety, appetite loss, and 30 lb weight loss over the past few months. Per patient her baseline weight is around 189 lb. She also admits to intermittent episodes of melena but was unable to say when the last episode was. Pain improved with medications but has not resolved since admission.She uses Excedrin migraine multiple times daily but denies any other NSAID or anticoagulant use. CT showed fat stranding anterior to the duodenum and inferior to the stomach possible duodenitis versus duodenal ulcer versus pancreatitis. LFTs normal and lipase 158. patient smokes half a pack per day and uses marijuana regularly but denies any alcohol use. Continue Protonix 40 mg daily continue famotidine 40 mg daily supportive care with antiemetics and pain control EGD tomorrow Continue antibiotics care with NSAIDs, aspirin, or anticoagulants 2) Diarrhea /hematochezia/ Fecal incontinence: Patient has never had a colonoscopy. Family history negative for CRC or IBD. Patient states she has lost 30 lb over the past few months. Admits to trace intermittent rectal bleeding and denies any known history of hemorrhoids. For the past few months she has been having diarrhea with 3 or more liquid urgent bowel movements per day with occasional fecal incontinence. She also complains of rectal itching and burning. Patient S/P CCX > 20 years ago. Denies any bowel movement since admission. DDX: hemorrhage versus polyp versus AVM versus neoplasm versus IBD versus malabsorption versus functional. Clear liquid diet today, okay for crackers this morning bowel prep to start this evening NPO after midnight
[2024-01-23 09:57] LABS: Alanine Aminotransferase 9 U/L (6-35); Albumin Level 3.8 g/dL (3.5-5.1); Alkaline Phosphatase 60 U/L (38-126); Anion Gap 7 mmol/L (4-12); Aspartate Amino Transferase 17 U/L (14-36); Bilirubin,Total 0.4 mg/dL (0.2-1.3); Blood Urea Nitrogen 7 mg/dL (7-17); Calcium 8.3 mg/dL (8.4-10.2); Carbon Dioxide 19 mmol/L (22-30); Chloride 114 mmol/L (98-107); Estimated CRCL calculation 105 ml/min; Estimated Glomerular Filt Rate > 60; Glucose 84 mg/dL (65-110); Magnesium 1.8 mg/dL (1.6-2.3); Potassium 3.8 mmol/L (3.4-5.0); Sodium 140 mmol/L (137-145)
[2024-01-23 10:07] LABS: Basophils Absolute Auto 0.1 K/mm3 (0.0-0.1); Eosinophils Absolute Auto 0.2 K/mm3 (0-0.3); Eosinophils Percent Auto 1.8 % (0-4.4); Hematocrit 26.8 % (37.0-47.0); Hemoglobin 7.6 g/dL (12.0-15.0); Immature Granulocyte Absolute 0.05 K/mm3 (0.00-0.031); Immature Granulocyte Percent A 0.6 % (0-0.5); Lymphocytes Absolute Auto 2.35 K/mm3 (0.9-3.2); Lymphocytes Percent Auto 26.5 % (18.3-44.2); Mean Corpuscular HGB Conc 28.4 g/dl (32-36); Mean Corpuscular Hemoglobin 22.6 pg (26-34); Mean Corpuscular Volume 79.5 fl (80-100); Mean Platelet Volume 10.3 fl (7.4-10.4); Monocytes Absolute Auto 0.8 K/mm3 (0.1-0.6); Monocytes Percent Auto 8.4 % (2.6-8.5); Neutrophils Absolute Auto 5.5 K/mm3 (1.3-6.7); Neutrophils Percent Auto 61.7 % (45.5-73.1); Platelet Count Result 449 k/mm3 (150-375); Red Blood Count 3.37 M/mm3 (4.2-5.4); Red Cell Distribution Width 21.3 % (11.5-14.5); White Blood Count 8.9 K/mm3 (4.5-10.0)
[2024-01-23 11:20] LABS: Iron 20 ug/dL (37-170)
[2024-01-23 11:29] LABS: Percent Iron Saturation 5 % (20-50)
[2024-01-23 11:38] LABS: Anisocytosis 1+; Hypochromasia 2+; Microcytosis 1+ (NORMAL); Platelet Estimate Adequate (Adequate); Schistocytes None Seen
[2024-01-23 11:57] LABS: Ferritin 4.62 ng/mL (6.24-137)
[2024-01-23] MEDS: IRON SUCROSE COMPLEX 300 MG in SODIUM CHLORIDE 0.9% IV 250 ML 177 MG IVPB (14:45)
[2024-01-23] MEDS: polyethylene glycoL 3350 238 GM BOTTLE PO (14:46)
[2024-01-23] MEDS: BISACODYL 5 MG TABLET EC 20 MG PO (14:59)
[2024-01-23 19:24] LABS: Hematocrit 25.6 % (37.0-47.0); Hemoglobin 7.5 g/dL (12.0-15.0)
[2024-01-24] VITALS (13 sets, daily range): BP systolic 93–128; BP diastolic 56–73; PULSE 70–94; RESP 13–20; TEMP 36–36.4; O2SAT 99–100
[2024-01-24] MEDS: SODIUM CHLORIDE 0.9% IV 1,000 ML 100 ML IV CONT ×3 (01:34→15:15)
[2024-01-24] MEDS: HYDROmorphone HCL INJ (*CRX) 1 MG/ML SYR IV PUSH ×4 (01:34→17:16)
[2024-01-24] MEDS: MAGNESIUM CITRATE 300 ML BTL PO (03:06)
[2024-01-24] MEDS: ONDANSETRON INJ 4 MG/2 ML VIAL IV PUSH ×2 (04:34→12:11)
[2024-01-24] MEDS: CYCLOBENZAPRINE HCL 10 MG TABLET PO ×3 (06:28→17:16)
[2024-01-24 07:42] LABS: Basophils Absolute Auto 0.1 K/mm3 (0.0-0.1); Basophils Percent Auto 0.7 % (0.2-1.2); Eosinophils Absolute Auto 0.1 K/mm3 (0-0.3); Eosinophils Percent Auto 0.5 % (0-4.4); Hematocrit 27.1 % (37.0-47.0); Hemoglobin 7.8 g/dL (12.0-15.0); Immature Granulocyte Absolute 0.05 K/mm3 (0.00-0.031); Immature Granulocyte Percent A 0.5 % (0-0.5); Lymphocytes Absolute Auto 2.24 K/mm3 (0.9-3.2); Lymphocytes Percent Auto 20.3 % (18.3-44.2); Mean Corpuscular HGB Conc 28.8 g/dl (32-36); Mean Corpuscular Hemoglobin 22.5 pg (26-34); Mean Corpuscular Volume 78.3 fl (80-100); Mean Platelet Volume 10.1 fl (7.4-10.4); Monocytes Absolute Auto 0.8 K/mm3 (0.1-0.6); Monocytes Percent Auto 7.1 % (2.6-8.5); Neutrophils Absolute Auto 7.8 K/mm3 (1.3-6.7); Neutrophils Percent Auto 70.9 % (45.5-73.1); Platelet Count Result 458 k/mm3 (150-375); Red Blood Count 3.46 M/mm3 (4.2-5.4); Red Cell Distribution Width 21.2 % (11.5-14.5); White Blood Count 11.1 K/mm3 (4.5-10.0)
[2024-01-24 08:05] LABS: Alanine Aminotransferase 11 U/L (6-35); Alkaline Phosphatase 64 U/L (38-126); Aspartate Amino Transferase 18 U/L (14-36); Carbon Dioxide 22 mmol/L (22-30); Estimated CRCL calculation 123 ml/min; Estimated Glomerular Filt Rate > 60; Glucose 88 mg/dL (65-110)
[2024-01-24 08:16] LABS: Anion Gap 9 mmol/L (4-12); Bilirubin,Total 0.3 mg/dL (0.2-1.3); Calcium 8.6 mg/dL (8.4-10.2); Chloride 111 mmol/L (98-107); Magnesium 2.1 mg/dL (1.6-2.3); Potassium 2.8 mmol/L (3.4-5.0); Sodium 142 mmol/L (137-145)
[2024-01-24 08:45] LABS: Blood Urea Nitrogen < 2 mg/dL (7-17)
[2024-01-24] MEDS: PANTOPRAZOLE SODIUM IV 40 MG VIAL IV PUSH ×2 (08:56→20:26)
[2024-01-24] MEDS: POTASSIUM CHLORIDE INJ 40 MEQ in SODIUM CHLORIDE 0.9% IV 500 ML 127.55 MEQ IVPB (08:56)
--- NOTE | 2024-01-24 09:07 | PC.NURSE ---
Patient NPO at this time for EGD and colonoscopy. PO medications will be held until after the procedure
[2024-01-24 09:13] LABS: Platelet Estimate Adequate (Adequate); Schistocytes None Seen
[2024-01-24 09:14] LABS: Anisocytosis 1+; Hypochromasia 1+
[2024-01-24 09:15] LABS: Microcytosis 1+ (NORMAL)
[2024-01-24 12:53] LABS: Potassium 3.7 mmol/L (3.4-5.0)
[2024-01-24] MEDS: LACTATED RINGERS 1,000 ML 150 ML IV CONT (13:50)
--- NOTE | 2024-01-24 14:11 | SUR.OPER ---
EGD: START END-1417 COLON: START1422 END- 1431
--- NOTE | 2024-01-24 14:15 | WPDANESEPPF ---
Anes - Initial Pre Proc Eval Procedure: Operation Date: 01/24/24 16:00 Proposed Procedures p Esophagogastroduodenoscopy & Colonoscopy - Zachary Fernández MD Date/Time: 01/24/24 14:15 Surgeon: Jonathon Carr MD Pre Op Diagnosis: UTI, Left upper quadrant abdominal pain Patient Data Age: 43 Gender: F Height: 1.73 m Weight: 76.3 kg Last Vital Signs Temp 96.8 F L 01/24/24 13:44 Pulse 85 01/24/24 13:44 Resp 20 01/24/24 13:44 BP 128/69 01/24/24 13:44 Pulse Ox 100 01/24/24 13:44 O2 Del Method Room Air 01/24/24 13:44 Allergies Allergy/AdvReac Type Severity Reaction Status Date / Time morphine Allergy Unknown Itching Verified 01/24/24 13:40 Home Medications Medication Instructions Recorded Confirmed Type alprazolam 1 mg tablet 1 mg PO QID PRN Anxiety 01/22/24 01/22/24 History amitriptyline 50 mg tablet 50 mg PO DAILY 01/22/24 01/22/24 History wxhumky-riywtgxhokrwm-yrdvzuod 250 1 tablet PO Q4-6H PRN migrane 01/22/24 01/22/24 History mg-250 mg-65 mg tablet (Excedrin Migraine) cyclobenzaprine 10 mg tablet 10 mg PO TID 01/22/24 01/22/24 History famotidine 40 mg tablet (Pepcid) 40 mg PO DAILY 01/22/24 01/22/24 History fluoxetine 40 mg capsule 40 mg PO DAILY 01/22/24 01/22/24 History hydrocodone 5 mg-acetaminophen 325 5 - 325 tablet PO BID PRN Pain 01/22/24 01/22/24 History mg tablet Laboratory Tests 01/23/24 01/24/24 01/24/24 19:05 06: 12:40 WBC 11.1 H K/mm3 (4.5-10.0) RBC 3.46 L M/mm3 (4.2-5.4) Hgb 7.5 L g/dL 7.8 L g/dL (12.0-15.0) (12.0-15.0) Hct 25.6 L % 27.1 L % (37.0-47.0) (37.0-47.0) MCV 78.3 L fl (80-100) MCH 22.5 L pg (26-34) MCHC 28.8 L g/dl (32-36) RDW 21.2 H % (11.5-14.5) Plt Count 458 H k/mm3 (150-375) MPV 10.1 fl (7.4-10.4) Immature Gran % (Auto) 0.5 % (0-0.5) Neut % (Auto) 70.9 % (45.5-73.1) Lymph % (Auto) 20.3 % (18.3-44.2) [place] % (Auto) 7.1 % (2.6-8.5) Eos % (Auto) 0.5 % (0-4.4) Baso % (Auto) 0.7 % (0.2-1.2) Lymph # (Auto) 2.24 K/mm3 (0.9-3.2) [place] # (Auto) 0.8 H K/mm3 (0.1-0.6) Eos # (Auto) 0.1 K/mm3 (0-0.3) Baso # (Auto) 0.1 K/mm3 (0.0-0.1) Abs Immat Gran (auto) 0.05 H K/mm3 (0.00-0.031) Absolute Neuts (auto) 7.8 H K/mm3 (1.3-6.7) Absolute Nucleated RBC 0.000 K/mm3 (0.0-0.012) Nucleated RBC % 0.0 % (0.0-0.2) Platelet Estimate Adequate (Adequate) Hypochromasia 1+ Anisocytosis 1+ Microcytosis 1+ (NORMAL) Schistocytes None seen Sodium 142 mmol/L (137-145) Potassium 2.8 L* mmol/L 3.7 mmol/L (3.4-5.0) (3.4-5.0) Chloride 111 H mmol/L (98-107) Carbon Dioxide 22 mmol/L (22-30) Anion Gap 9 mmol/L (4-12) BUN < 2 L mg/dL (7-17) Creatinine 0.50 L mg/dL (0.7-1.0) Estim Creat Clear Calc 123 ml/min Estimated GFR > 60 (59 - ) Glucose 88 mg/dL (65-110) Calcium 8.6 mg/dL (8.4-10.2) Magnesium 2.1 mg/dL (1.6-2.3) Total Bilirubin 0.3 mg/dL (0.2-1.3) AST 18 U/L (14-36) ALT 11 U/L (6-35) Alkaline Phosphatase 64 U/L (38-126) Total Protein 7.0 g/dL (6.3-8.2) Albumin 4.0 g/dL (3.5-5.1) Patient hx anesthesia problems: none Family hx anesthesia problems: none Results Review: All pre-operative results and documents have been reviewed as part of the pre-operative evaluation. [facility] Past Medical History Medical History Depression with anxiety Fibromyalgia Surgical History Surgical History (Reviewed 01/24/24 @ 14:15 by Bernardo Dale DO
--- NOTE | 2024-01-24 15:01 | PM.IMPN ---
Progress Note: A&P Assessment and Plan (1) Pancreatic lesion: Code(s): K86.9 - Disease of pancreas, unspecified Status: Acute (2) Duodenitis: Code(s): K29.80 - Duodenitis without bleeding Status: Acute (3) Abnormal digestive system diagnostic imaging: Code(s): R93.3 - Abnormal findings on diagnostic imaging of other parts of digestive tract Status: Acute (4) UTI (urinary tract infection): Qualifiers: Hematuria presence: with hematuria Urinary tract infection type: acute cystitis Qualified Code(s): N30.01 - Acute cystitis with hematuria Code(s): N39.0 - Urinary tract infection, site not specified Status: Acute (5) Abdominal pain, LUQ: Code(s): R10.12 - Left upper quadrant pain Status: Acute Plan Abdominal pain/left flank pain. Mild leukocytosis and anemia urinalysis with WBC and RBC the patient on menstrual cycle. CT abdomen with hypodense lesion body of pancreas. Fat stranding anterior to the duodenum and inferior may be duodenitis duodenal ulcer out pancreatitis. Placed on PPI. GI consult a MRCP negative for any pancreatic lesion. Lipase normal. On ceftriaxone and IV fluid and PPI. Worsening anemia down from 9 to 7. Change PPI to twice a day. Stool occult blood was positive. GI consulted going for EGD and colonoscopy today. Colonoscopy: Diverticulosis without bleeding. EGD with moderate ulcerative gastritis seen in antrum no mucosal bleed she has taken. A single greater did deep ulcer ranging in size from 16 mm to 18 mm visualized in duodenal bulb. The ulcer was clean based without signs of bleeding for S3. Multiple biopsies were taken. Will need EGD in 3 months to assess healing. On PPI b.i.d.. Iron deficiency noted on laboratory results. IV Venofer given UTI on ceftriaxone Left adrenal adenoma stable Subjective Date/time seen: 01/24/24 15:01 Interval history: No overnight events. She is going for EGD and colonoscopy this afternoon. Potassium was low and hence getting replaced. Epigastric pain and Back pain reported left flank pain has improved. Review of Systems Review of Systems: All systems reviewed & are unremarkable except as noted in HPI and below Exam Narrative: GENERAL: Alert and oriented not in acute distress HEAD: Normocephalic, atraumatic. EYES: PERRLA and EOMI. ENT: Nares clear, no rhinorrhea or epistaxis. Mucous membranes moist. NECK: Supple. CHEST: Clear to auscultation. No respiratory distress. HEART: Regular rate and rhythm. No murmur heard. Normal peripheral pulses. ABDOMEN: Soft, tender in epigastric area, nondistended, normal active bowel sounds. No rebound, guarding rigidity. EXTREMITIES: Normal range of motion. No edema. SKIN: Warm, dry, no rash. NEURO: No focal deficits. Alert and oriented x3 Objective Data Vital Signs Vital Signs: Vital Signs - 24 hr 01/23/24 16:00 01/23/24 20:53 01/23/24 20:00 Temperature 98.0 F Pulse Rate 80 75 78 Respiratory Rate 12 Blood Pressure 112/82 Pulse Oximetry 100 Oxygen Delivery 01/24/24 00:00 01/24/24 04:00 01/24/24 06:00 Temperature 97.5 F L Pulse Rate 94 85 86 Respiratory Rate 16 Blood Pressure 123/73 Pulse Oximetry 99 Oxygen Delivery 01/24/24 08:56 01/24/24 13:44 01/24/24 14:33 Temperature 96.8 F L Pulse Rate 85 74 Respiratory Rate 20 18 Blood Pressure 128/69 93/56 L Pulse Oximetry 100 100 Oxygen Delivery Room Air Room Air Room Air 01/24/24 14:43 01/24/24 14:53 Temperature Pulse Rate 77 70 Respiratory Rate 13 17 Blood Pressure 99/61 L 98/60 L Pulse Oximetry 100 100 Oxygen Delivery Room Air Room Air Intake/Output Intake/Output: Intake & Output 01/21/24 01/22/24 01/23/24 01/24/24 23:59 23:59 23:59 23:59 Intake Total 1050 3368.7 843.3 Balance 1050 3368.7 843.3 Meds/Results Medications: Active Medications Generic Name Dose Route Start Last Admin Trade Name Freq PRN Reason S
[2024-01-24] MEDS: KCL 20 MEQ/SW 100 ML 50 MEQ IVPB (15:14)
[2024-01-24] MEDS: FAMOTIDINE 20 MG TABLET 40 MG PO (15:18)
[2024-01-24] MEDS: FLUoxetine HCL 20 MG CAPSULE 40 MG PO (15:18)
[2024-01-24] MEDS: AMITRIPTYLINE HCL 25 MG TABLET 50 MG PO (15:18)
[2024-01-25] VITALS (9 sets, daily range): BP systolic 113–136; BP diastolic 68–85; PULSE 74–93; RESP 14–18; TEMP 36.3–36.5; O2SAT 100
[2024-01-25] MEDS: SODIUM CHLORIDE 0.9% IV 1,000 ML 100 ML IV CONT ×3 (03:19→20:48)
[2024-01-25 07:11] LABS: Alanine Aminotransferase 11 U/L (6-35); Albumin Level 3.2 g/dL (3.5-5.1); Alkaline Phosphatase 68 U/L (38-126); Anion Gap 2 mmol/L (4-12); Aspartate Amino Transferase 17 U/L (14-36); Bilirubin,Total 0.1 mg/dL (0.2-1.3); Blood Urea Nitrogen 4 mg/dL (7-17); Calcium 8.2 mg/dL (8.4-10.2); Carbon Dioxide 26 mmol/L (22-30); Chloride 112 mmol/L (98-107); Estimated CRCL calculation 105 ml/min; Estimated Glomerular Filt Rate > 60; Glucose 90 mg/dL (65-110); Magnesium 2.1 mg/dL (1.6-2.3); Potassium 3.8 mmol/L (3.4-5.0); Sodium 140 mmol/L (137-145)
[2024-01-25 07:14] LABS: Basophils Absolute Auto 0.1 K/mm3 (0.0-0.1); Basophils Percent Auto 0.9 % (0.2-1.2); Eosinophils Absolute Auto 0.1 K/mm3 (0-0.3); Eosinophils Percent Auto 1.5 % (0-4.4); Hematocrit 25.5 % (37.0-47.0); Hemoglobin 7.3 g/dL (12.0-15.0); Immature Granulocyte Absolute 0.03 K/mm3 (0.00-0.031); Immature Granulocyte Percent A 0.5 % (0-0.5); Lymphocytes Absolute Auto 1.98 K/mm3 (0.9-3.2); Lymphocytes Percent Auto 30.5 % (18.3-44.2); Mean Corpuscular HGB Conc 28.6 g/dl (32-36); Mean Corpuscular Hemoglobin 22.8 pg (26-34); Mean Corpuscular Volume 79.7 fl (80-100); Mean Platelet Volume 10.3 fl (7.4-10.4); Monocytes Absolute Auto 0.8 K/mm3 (0.1-0.6); Monocytes Percent Auto 11.6 % (2.6-8.5); Neutrophils Absolute Auto 3.6 K/mm3 (1.3-6.7); Platelet Count Result 384 k/mm3 (150-375); White Blood Count 6.5 K/mm3 (4.5-10.0)
[2024-01-25] MEDS: AMITRIPTYLINE HCL 25 MG TABLET 50 MG PO (07:51)
[2024-01-25] MEDS: FLUoxetine HCL 20 MG CAPSULE 40 MG PO (07:51)
[2024-01-25] MEDS: FAMOTIDINE 20 MG TABLET 40 MG PO (07:51)
[2024-01-25] MEDS: CYCLOBENZAPRINE HCL 10 MG TABLET PO ×3 (07:52→17:09)
[2024-01-25] MEDS: PANTOPRAZOLE SODIUM IV 40 MG VIAL IV PUSH ×2 (07:55→20:40)
[2024-01-25] MEDS: HYDROcodone/acetaminophen (*CRX) 5-325 MG TABLET PO (07:55)
[2024-01-25 08:00] LABS: Anisocytosis 1+; Hypochromasia 1+; Platelet Estimate Slightly Increased (Adequate); Schistocytes None Seen; Target Cells 1+
--- NOTE | 2024-01-25 10:29 | P.PNAN_ITS ---
Anes - Prog Note Post-Op Date/Time: 01/25/24 10:29 Cardiovascular status: other (anemia) Respiratory status: normal Airway patency: baseline Mental status: baseline Post-Op hydration status: normal Vital Signs: Last Vital Signs Temp 36.3 C L 01/25/24 06:00 Pulse 74 01/25/24 06:00 Resp 18 01/25/24 06:00 BP 136/85 01/25/24 06:00 Pulse Ox 100 01/25/24 06:00 O2 Del Method Room Air 01/24/24 20:20 Pain Score (VAS): 08/21 I/O: Intake & Output 01/24/24 01/25/24 01/25/24 23:59 07:59 15:59 Intake Total 340 1222 Balance 340 1222 Laboratory Tests 01/25/24 06:35 01/25/24 06:35 01/24/24 01/25/24 12:40 06:35 WBC 6.5 RBC 3.20 L Hgb 7.3 L Hct 25.5 L MCV 79.7 L MCH 22.8 L MCHC 28.6 L RDW 21.0 H Plt Count 384 H MPV 10.3 Immature Gran % (Auto) 0.5 Neut % (Auto) 55.0 Lymph % (Auto) 30.5 [place] % (Auto) 11.6 H Eos % (Auto) 1.5 Baso % (Auto) 0.9 Lymph # (Auto) 1.98 [place] # (Auto) 0.8 H Eos # (Auto) 0.1 Baso # (Auto) 0.1 Abs Immat Gran (auto) 0.03 Absolute Neuts (auto) 3.6 Absolute Nucleated RBC 0.000 Nucleated RBC % 0.0 Platelet Estimate Slightly increased Hypochromasia 1+ Anisocytosis 1+ Target Cells 1+ Schistocytes None seen Sodium 140 Potassium 3.7 3.8 Chloride 112 H Carbon Dioxide 26 Anion Gap 2 L BUN 4 L Creatinine 0.60 L Estim Creat Clear Calc 105 Estimated GFR > 60 Glucose 90 Calcium 8.2 L Magnesium 2.1 Total Bilirubin 0.1 L AST 17 ALT 11 Alkaline Phosphatase 68 Total Protein 6.0 L Albumin 3.2 L Post-procedural complaints: none Patient Feedback: Patient satisfied with anesthetic care.
--- NOTE | 2024-01-25 11:51 | WPDGIPROGNO ---
Progress Note: A&P Assessment and Plan (1) Duodenal ulcer: Code(s): K26.9 - Duodenal ulcer, unspecified as acute or chronic, without hemorrhage or perforation Status: Acute Assessment and Plan: ulcer in duodenal buld and gastritis wonder if could be from daily excedrin use- will discontinue, advised patient to avoid nsaid's altogether as this probably is contributing with her symptoms MRCP reviewed and normal pancreas EGD in 3-4 months to assess healing- pending biopsies continue with PPI twice daily (2) Melena: Code(s): K92.1 - Melena Status: Acute (3) Acid reflux: Qualifiers: Esophagitis presence: esophagitis presence not specified Qualified Code(s): K21.9 - Gastro-esophageal reflux disease without esophagitis Code(s): K21.9 - Gastro-esophageal reflux disease without esophagitis Status: Acute (4) Early satiety: Code(s): R68.81 - Early satiety Status: Acute (5) Weight loss: Code(s): R63.4 - Abnormal weight loss Status: Acute Assessment and Plan: probably from egd findings colonoscopy normal no signs of colitis, no need of abx by GI (6) Microcytic anemia: Code(s): D50.9 - Iron deficiency anemia, unspecified Status: Acute Assessment and Plan: probably from PUD (7) Nausea: Code(s): R11.0 - Nausea Status: Acute (8) Abnormal digestive system diagnostic imaging: Code(s): R93.3 - Abnormal findings on diagnostic imaging of other parts of digestive tract Status: Acute (9) NSAID long-term use: Code(s): 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-steroidal anti-inflammatories (NSAID) Status: Acute Assessment and Plan: discontinue Subjective Date/time seen: 01/25/24 11:51 Interval history: egd found large DU and also ulcerative gastritis colon normal, no signs of colitis still with abdominal discomfort, she says that normally takes excedrin daily for headache Review of Systems Review of Systems: All systems reviewed & are unremarkable except as noted in HPI and below Exam Const: General: comfortable and no acute distress HENMT: Face/Nose/Sinus: Normal nares present Eyes: General: appearance normal, both eyes and all related structures Neck: Neck: supple Resp: Auscultation: clear to auscultation bilaterally Cardio: Rate: regular rate Rhythm: regular rhythm GI: Inspection: non-distended GI Palp: Yes Soft to palpation and No Tenderness to palpation present (GI) Auscultation: normal bowel sounds Skin: General skin exam: normal color Neuro: Speech: normal speech Motor exam (neuro): 5/5 motor strength present throughout Extrem: General: normal to inspection Psych: Mental Status: mental status grossly normal Objective Data Vital Signs Vital Signs: Vital Signs - 24 hr 01/24/24 13:44 01/24/24 14:33 01/24/24 14:43 Temperature 96.8 F L Pulse Rate 85 74 77 Respiratory Rate 20 18 13 Blood Pressure 128/69 93/56 L 99/61 L Pulse Oximetry 100 100 100 Oxygen Delivery Room Air Room Air Room Air 01/24/24 14:53 01/24/24 12:00 01/24/24 16:00 Temperature Pulse Rate 70 85 74 Respiratory Rate 17 Blood Pressure 98/60 L Pulse Oximetry 100 Oxygen Delivery Room Air 01/24/24 20:57 01/24/24 20:20 01/24/24 20:02 Temperature 96.9 F L Pulse Rate 81 81 86 Respiratory Rate 13 13 Blood Pressure 121/70 Pulse Oximetry 100 100 Oxygen Delivery Room Air 01/25/24 00:02 01/25/24 04:02 01/25/24 06:00 Temperature 97.3 F L Pulse Rate 81 75 74 Respiratory Rate 18 Blood Pressure 136/85 Pulse Oximetry 100 Oxygen Delivery 01/25/24 07:45 Temperature Pulse Rate Respiratory Rate Blood Pressure Pulse Oximetry Oxygen Delivery Room Air Intake/Output Intake/Output: Intake & Output 01/22/24 01/23/24 01/24/24 01/25/24 23:59 23:59 23:59 23:59 Intake Total 1050 3418.7 2333.3 1462 Balance 1050 3418.7 2333.3 1462
[2024-01-25] MEDS: HYDROcodone/acetaminophen (*CRX) 5-325 MG TABLET 1 TAB PO ×2 (14:01→19:38)
--- NOTE | 2024-01-25 16:17 | PM.IMPN ---
Progress Note: A&P Assessment and Plan (1) Duodenal ulcer: Code(s): K26.9 - Duodenal ulcer, unspecified as acute or chronic, without hemorrhage or perforation Status: Acute Assessment and Plan: Continue b.i.d. PPI Will need follow-up EGD in 3 months Until nausea and pain improve will need to remain in hospital (2) NSAID long-term use: Code(s): Z79.1 - senior care (current) use of non-steroidal anti-inflammatories (NSAID) Status: Acute Assessment and Plan: Aware of need to avoid NSAIDs (3) Microcytic anemia: Code(s): D50.9 - Iron deficiency anemia, unspecified Status: Acute Assessment and Plan: 01/24/2025 Hbg stable at 7.3 Subjective Date/time seen: 01/25/24 16:17 Interval history: Still with some abdominal discomfort epigastric to bilateral upper quadrants around to the back. No 0. Tolerated small amounts of food last night and today. Leery about going home because of the nausea and feeling as if she might vomit. Eating seems to make the pain worse. No bleeding noted. No chest pain or shortness of breath. No dizziness. Feeling much better than at admission. Review of Systems Review of Systems: All systems reviewed & are unremarkable except as noted in HPI and below Exam Narrative: HEENT: PERRL, sclerae nonicteric, pharyngeal mucosa pink and intact NECK: No JVD, adenopathy, or thyromegaly CHEST: Clear to auscultation. Normal effort. HEART: NL S1/S2, regular, no murmur ABDOMEN: BS+, soft, tender to palpation epigastric bilateral upper quadrant without guarding rebound or masses or bruit. EXTREMITIES: No cyanosis, edema, or clubbing NEUROLOGIC: CN intact and symmetric to inspection. MUSCULOSKELETAL: Tone and strength symmetric. PSYCH: Alert. Oriented to person, place, and time. Objective Data Vital Signs Vital Signs: Vital Signs - 24 hr 01/24/24 20:57 01/24/24 20:20 01/24/24 20:02 Temperature 96.9 F L Pulse Rate 81 81 86 Respiratory Rate 13 13 Blood Pressure 121/70 Pulse Oximetry 100 100 Oxygen Delivery Room Air 01/25/24 00:02 01/25/24 04:02 01/25/24 06:00 Temperature 97.3 F L Pulse Rate 81 75 74 Respiratory Rate 18 Blood Pressure 136/85 Pulse Oximetry 100 Oxygen Delivery 01/25/24 07:45 01/25/24 14:00 01/25/24 08:00 Temperature 97.5 F L Pulse Rate 82 89 Respiratory Rate 14 Blood Pressure 113/68 Pulse Oximetry 100 Oxygen Delivery Room Air 01/25/24 12:00 Temperature Pulse Rate 79 Respiratory Rate Blood Pressure Pulse Oximetry Oxygen Delivery Intake/Output Intake/Output: Intake & Output 01/22/24 01/23/24 01/24/24 01/25/24 23:59 23:59 23:59 23:59 Intake Total 1050 3418.7 2333.3 2619 Balance 1050 3418.7 2333.3 2619 Meds/Results Medications: Active Medications Generic Name Dose Route Start Last Admin Trade Name Freq PRN Reason Stop Dose Admin Hydrocodone Bitart/Acetaminophen 1 tab 01/25/24 13:45 01/25/24 14:01 Hydrocodone/Acetaminophen (*Crx) 5-325 Mg Tablet PO 1 tab Q6H PRN Administration Pain 4-6 Alprazolam 1 mg 01/23/24 01:59 Alprazolam (*Crx) 0.5 Mg Tablet PO QID PRN Anxiety Amitriptyline HCl 50 mg 01/23/24 09:00 01/25/24 07:51 Amitriptyline Hcl 25 Mg Tablet PO 50 mg DAILY DUSTY Administration Cyclobenzaprine HCl 10 mg 01/23/24 09:00 01/25/24 12:39 Cyclobenzaprine Hcl 10 Mg Tablet PO 10 mg TID DUSTY Administration Famotidine 40 mg 01/23/24 09:00 01/25/24 07:51 Famotidine 20 Mg Tablet PO 40 mg DAILY DUSTY Administration Fluoxetine HCl 40 mg 01/23/24 09:00 01/25/24 07:51 Fluoxetine Hcl 20 Mg Capsule PO 40 mg DAILY DUSTY Administration Hydromorphone HCl 1 mg 01/22/24 21:57 01/24/24 17:16 Hydromorphone Hcl Inj (*Crx) 1 Mg/Ml Syr IV PUSH 1 mg Q4H PRN Administration Pain Rated 7-10 Ceftriaxone Sodium 1 gm in 50 mls @ 100 mls/hr 01/23/24 18:00 01/24/24 18:59 Rocephin 1
[2024-01-25] MEDS: HYDROmorphone HCL INJ (*CRX) 1 MG/ML SYR IV PUSH (20:45)
[2024-01-26] MEDS: HYDROmorphone HCL INJ (*CRX) 1 MG/ML SYR IV PUSH (03:30)
[2024-01-26] MEDS: HYDROcodone/acetaminophen (*CRX) 5-325 MG TABLET 1 TAB PO ×3 (04:06→15:29)
[2024-01-26 06:00] VITALS: BP 137/82; PULSE 78; RESP 18; TEMP 36.6; O2SAT 100
[2024-01-26 08:58] LABS: Hematocrit 26.4 % (37.0-47.0); Hemoglobin 7.6 g/dL (12.0-15.0); Mean Corpuscular HGB Conc 28.8 g/dl (32-36); Mean Platelet Volume 10.5 fl (7.4-10.4); Platelet Count Result 411 k/mm3 (150-375); Red Cell Distribution Width 21.7 % (11.5-14.5); White Blood Count 9.5 K/mm3 (4.5-10.0)
[2024-01-26] MEDS: SODIUM CHLORIDE 0.9% IV 1,000 ML 100 ML IV CONT (09:03)
[2024-01-26] MEDS: CYCLOBENZAPRINE HCL 10 MG TABLET PO ×2 (09:05→13:41)
[2024-01-26] MEDS: FLUoxetine HCL 20 MG CAPSULE 40 MG PO (09:05)
[2024-01-26] MEDS: FAMOTIDINE 20 MG TABLET 40 MG PO (09:05)
[2024-01-26 09:13] LABS: Anion Gap 8 mmol/L (4-12); Blood Urea Nitrogen 8 mg/dL (7-17); Calcium 8.2 mg/dL (8.4-10.2); Carbon Dioxide 23 mmol/L (22-30); Chloride 109 mmol/L (98-107); Estimated CRCL calculation 123 ml/min; Estimated Glomerular Filt Rate > 60; Glucose 75 mg/dL (65-110); Potassium 3.6 mmol/L (3.4-5.0); Sodium 140 mmol/L (137-145)
[2024-01-26] MEDS: AMITRIPTYLINE HCL 25 MG TABLET 50 MG PO (09:14)
--- NOTE | 2024-01-26 12:12 | WPDGIPROGNO ---
Progress Note: A&P Assessment and Plan (1) Duodenal ulcer: Code(s): K26.9 - Duodenal ulcer, unspecified as acute or chronic, without hemorrhage or perforation Status: Acute Assessment and Plan: ulcer in duodenal buld and gastritis- pending biopsies she should not take any more nsaid's MRCP reviewed and normal pancreas EGD in 3-4 months to assess healing continue with PPI twice daily still with abdominal discomfort, nausea better (2) Melena: Code(s): K92.1 - Melena Status: Acute (3) Acid reflux: Qualifiers: Esophagitis presence: esophagitis presence not specified Qualified Code(s): K21.9 - Gastro-esophageal reflux disease without esophagitis Code(s): K21.9 - Gastro-esophageal reflux disease without esophagitis Status: Acute (4) Early satiety: Code(s): R68.81 - Early satiety Status: Acute (5) Weight loss: Code(s): R63.4 - Abnormal weight loss Status: Acute Assessment and Plan: probably from egd findings colonoscopy normal no signs of colitis, no need of abx by GI (6) Microcytic anemia: Code(s): D50.9 - Iron deficiency anemia, unspecified Status: Acute Assessment and Plan: probably from PUD (7) Nausea: Code(s): R11.0 - Nausea Status: Acute (8) Abnormal digestive system diagnostic imaging: Code(s): R93.3 - Abnormal findings on diagnostic imaging of other parts of digestive tract Status: Acute (9) NSAID long-term use: Code(s): Z79.1 - manager terminal (current) use of non-steroidal anti-inflammatories (NSAID) Status: Acute Assessment and Plan: discontinue Subjective Date/time seen: 01/26/24 12:12 Interval history: nausea almost gone but still abdominal discomfort Review of Systems Review of Systems: All systems reviewed & are unremarkable except as noted in HPI and below Exam Const: General: comfortable and no acute distress HENMT: Face/Nose/Sinus: Normal nares present Eyes: General: appearance normal, both eyes and all related structures Neck: Neck: supple Resp: Auscultation: clear to auscultation bilaterally Cardio: Rate: regular rate Rhythm: regular rhythm GI: Inspection: non-distended GI Palp: Yes Soft to palpation and Yes Tenderness to palpation present (GI) (mild ttp in epigastric, no rebound) Auscultation: normal bowel sounds Skin: General skin exam: normal color Neuro: Speech: normal speech Motor exam (neuro): 5/5 motor strength present throughout Extrem: General: normal to inspection Psych: Mental Status: mental status grossly normal Objective Data Vital Signs Vital Signs: Vital Signs - 24 hr 01/25/24 14:00 01/25/24 16:00 01/25/24 20:00 Temperature 97.5 F L Pulse Rate 82 93 93 Respiratory Rate 14 14 Blood Pressure 113/68 Pulse Oximetry 100 100 Oxygen Delivery Room Air 01/25/24 20:50 01/26/24 06:00 Temperature 97.7 F 97.8 F Pulse Rate 85 78 Respiratory Rate 16 18 Blood Pressure 131/74 137/82 Pulse Oximetry 100 100 Oxygen Delivery Intake/Output Intake/Output: Intake & Output 01/23/24 01/24/24 01/25/24 01/26/24 23:59 23:59 23:59 23:59 Intake Total 3418.7 2383.3 3982.3 1540 Balance 3418.7 2383.3 3982.3 1540 Meds/Results Medications: Active Medications Generic Name Dose Route Start Last Admin Trade Name Freq PRN Reason Stop Dose Admin Hydrocodone Bitart/Acetaminophen 1 tab 01/25/24 13:45 01/26/24 09:14 Hydrocodone/Acetaminophen (*Crx) 5-325 Mg Tablet PO 1 tab Q6H PRN Administration Pain 4-6 Alprazolam 1 mg 01/23/24 01:59 Alprazolam (*Crx) 0.5 Mg Tablet PO QID PRN Anxiety Amitriptyline HCl 50 mg 01/23/24 09:00 01/26/24 09:14 Amitriptyline Hcl 25 Mg Tablet PO 50 mg DAILY DUSTY Administration Cyclobenzaprine HCl 10 mg 01/23/24 09:00 01/26/24 09:05 Cyclobenzaprine Hcl 10 Mg Tablet PO 10 mg TID DUSTY Administration Famotidine 40 mg
[2024-01-26] MEDS: HYDROmorphone HCL INJ (*CRX) 1 MG/ML SYR SUB-Q (13:38)
[2024-01-26 14:00] VITALS: BP 129/85; PULSE 95; RESP 14; TEMP 36.2; O2SAT 100
--- NOTE | 2024-01-26 14:34 | PM.DS ---
DS: Admitting Diagnosis Discharge Date 01/26/2024 Admitting Diagnosis 43-year-old female was admitted January 21 with diagnosis of epigastric abdominal pain and anemia. Pain been going on for a few months. She admitted Excedrin migraine frequently during that. She was treated with bowel rest IV fluids and high-dose PPI. Hemoglobin was 9.2 at admission but all the 7.5 during hospitalization but stabilized and was 7.6 at discharge. EGD was performed and showed gastritis and duodenal ulcer. Biopsies were results pending. Patient tolerated her diet gradually improving to tolerating a full diet. She was up and about without difficulty. She was still experiencing some but no pain but no nausea. She was given hydrocodone to take p.r.n. for that and for her migraines until she could be evaluated by her primary physician treatments for migraine. DS: Discharge Diagnosis Discharge Diagnosis (1) Duodenal ulcer: Code(s): K26.9 - Duodenal ulcer, unspecified as acute or chronic, without hemorrhage or perforation Status: Acute Assessment and Plan: Continue b.i.d. PPI Will need follow-up EGD in 3 months Until nausea and pain improve will need to remain in hospital DS: Summary Hospital Course Hospital Course: Admitted January 21 discharge January 25. Admitted for upper abdominal pain epigastric bilateral upper quadrant to back. Associated nausea. Hemoglobin 9.2 at admission and felt a 7.5 during hospitalization but stabilized and was 7.6 at discharge. She had no EGD showed gastritis and duodenal ulcer. Biopsies were taken CT the abdomen suggest some negative. By day of discharge patient was tolerating diet with no nausea but some continued pain. She wished to have some hydrocodone to take home for the pain and for intermittent migraine since she could not take her Excedrin migraine regularly as she was previously. She understood that regular use of Excedrin migraine and upper nonsteroidal anti-inflammatory drugs can cause peptic ulcers. Time Spent with Patient Time attestation: Total time spent providing and/or coordinating discharge services: Exam Narrative: HEENT: PERRL, sclerae nonicteric, pharyngeal mucosa pink and intact NECK: No JVD, adenopathy, or thyromegaly CHEST: Clear to auscultation. Normal effort. HEART: NL S1/S2, regular, no murmur ABDOMEN: BS+, soft, mildly tender to palpation epigastric bilateral upper quadrant without guarding rebound or masses or bruit. EXTREMITIES: No cyanosis, edema, or clubbing NEUROLOGIC: CN intact and symmetric to inspection. MUSCULOSKELETAL: Tone and strength symmetric. PSYCH: Alert. Oriented to person, place, and time. DS: Data Data Completed and Pending Pending studies at discharge: Pending at discharge 01/24/24 14:22 Surgical [PTH] Routine 01/24/24 14:32 Surgical [PTH] Routine Labs on day of discharge: Labs from last 24 hours 01/26/24 08:07 WBC 9.5 RBC 3.30 L Hgb 7.6 L Hct 26.4 L MCV 80.0 MCH 23.0 L MCHC 28.8 L RDW 21.7 H Plt Count 411 H MPV 10.5 H Sodium 140 Potassium 3.6 Chloride 109 H Carbon Dioxide 23 Anion Gap 8 BUN 8 Creatinine 0.50 L Estim Creat Clear Calc 123 Estimated GFR > 60 Glucose 75 Calcium 8.2 L Preliminary micro results at discharge 01/22/24 21:49 Blood Culture - Preliminary Blood 01/22/24 21:24 Blood Culture - Preliminary Blood Discharge Plan Discharge Consulting providers: Zachary Fernández Discharging Clinician: Mateo Nevarez Patient Disposition: Home, Self-Care Activity: as tolerated and other - see discharge instructions Diet: regular Discharge Instructions: Off work 01/22/24-02/02/24. Return to work 02/03/24. Patient Instructions: Antibiotic Form Stand Alone Forms: General Discharge Information, Work/School Release IP Follow-up/Referrals: PHYSICIAN,ENROLLMENT ADVISOR [Primary Care Provider] - 1 Week (call PCP for appt) Zachary Fernández MD [Physic
--- NOTE | 2024-01-26 16:51 | PC.NURSE ---
At 0900AM med pass, pt c/o pain. Pt given 1mg dilaudid IVP, pushed through IV tubing. Pt IV had been beeping, and IV unable to flush. Medication wasted as tubing removed and discarded in narcotics bin. Approx 1415, pt requested pain meds. SubQ dilaudid drawn and partially given. Pt unable to tolerated pain and requested this RN to stop administration. 0.5mg IV dilaudid received, 0.5mg IV dilaudid wasted. made aware. Pt requesting PO norco who received a dose approx 1540.
== END 2024-01-26 16:50 | disposition home or self-care (01) ==
LOC: ANHED 21:57 → ANH3MEDSUR 23:07
PROVIDERS: Anesthesiology; Internal Medicine; Internal Medicine Gastroenterology; Nurse Practitioner Family; Student in an Organized Health Care Education/Training Program; Admitting Provider Internal Medicine; Emergency Provider Physician Assistant; Visit Provider Internal Medicine
PROC: 0DJ08ZZ Inspection of Upper Intestinal Tract, Via Natural or Artificial Opening Endoscopic (ICD-10-PCS; CPT 43235; principal; 2024-01-24 16:00)
DX: K26.9 Duodenal ulcer, unspecified as acute or chronic, without hemorrhage or perforation (principal); K29.80 Duodenitis without bleeding; K29.70 Gastritis, unspecified, without bleeding; N30.01 Acute cystitis with hematuria; K21.9 Gastro-esophageal reflux disease without esophagitis; E87.6 Hypokalemia; K57.30 Diverticulosis of large intestine without perforation or abscess without bleeding; D50.9 Iron deficiency anemia, unspecified; R15.9 Full incontinence of feces; R15.2 Fecal urgency; F41.8 Other specified anxiety disorders; M79.7 Fibromyalgia; F17.210 Nicotine dependence, cigarettes, uncomplicated; F12.90 Cannabis use, unspecified, uncomplicated; Z79.1 Long term (current) use of non-steroidal anti-inflammatories (NSAID); R63.4 Abnormal weight loss; Z68.25 Body mass index [BMI] 25.0-25.9, adult
CPT/HCPCS: 45380; 43239; 36415; 74176; 74183; 76376; 80048; 80053; 81001; 81025; 82728; 83540; 83550; 83605; 83690; 83735; 84132; 85014; 85018; 85025; 85027; 87040; 87081; 87086; 88305; 96361; 96365; 96366; 96372; 96374; 96375; 96376; 99285; A9270; A9577; C9113; G0378; G0379; J0696; J1170; J1756; J2405; J3480; J7030; J7040; J7050; J7120

== ENCOUNTER 2024-02-02 09:24 | Emergency (ER) | payer OTHER, SELFPAY ==
--- NOTE | ~2024-02-02 | CT_ITS ---
EXAMINATION: CT abdomen pelvis w con DATE: 02/02/2024 10:43 INDICATION: Severe worsening diverticulitis with diffuse abdominal pain TECHNIQUE: Computed tomography (CT) of the abdomen and pelvis was performed with 100 mL Omnipaque-350 intravenous contrast. Automated exposure control and iterative reconstruction technique were employe d. The dose-length product was 524.69 mGy-cm. COMPARISON: CT dated 01/22/2024 FINDINGS: Lung bases are clear. Heart size is normal. No pericardial or pleural effusion. Cholecystectomy clips the gallbladder fossa. Liver, spleen, pancreas and right adrenal gland are normal. 1.8 cm left renal abnormal with typical signal dropout due to intracellular lipid evident on opposed phase imaging on the prior MRI. There are few scattered colonic diverticula without adjacent inflammatory stranding to suggest diverticulitis. Small bowel and appendix are normal. Bladder an anteverted uterus are normal . Suggestion of bilateral tubal ligation rings along the broad ligaments. 1.3 cm nabothian cyst at th e cervix. No free intraperitoneal gas or fluid. No pathologically enlarged abdominal or pelvic lympha denopathy. Bones are unremarkable. IMPRESSION: 1. A few scattered colonic diverticula without adjacent from trace stranding to suggest diverticuliti s. No other acute intra-abdominal/pelvic process. Reviewed, dictated and finalized at location A. IMPRESSION: 1. A few scattered colonic diverticula without adjacent from trace stranding to suggest diverticulitis. No other acute intra-abdominal/pelvic process.
[2024-02-02 09:42] VITALS: BP 123/63; PULSE 116; RESP 18; TEMP 36.2; O2SAT 100
--- NOTE | 2024-02-02 10:17 | ED.ABDPAIN ---
HPI - Abdominal Pain General Chief Complaint: Abdominal Pain Stated Complaint: abdominal pain Time Seen by Provider: 02/02/24 09:35 History of Present Illness HPI narrative: 43-year-old female presenting to the emergency department for evaluation for recurrent abdominal pain. Patient was just admitted in the hospital last week for diverticulitis. Patient reports she did receive an iron infusion at that time. Patient states that her pain worsened last night. Patient does complain of abdominal pain with associated nausea. Related Data Home Medications Medication Instructions Recorded Confirmed alprazolam 1 mg tablet 1 mg PO QID PRN Anxiety 01/22/24 01/22/24 amitriptyline 50 mg tablet 50 mg PO DAILY 01/22/24 01/22/24 famotidine 40 mg tablet (Pepcid) 40 mg PO DAILY 01/22/24 01/22/24 fluoxetine 40 mg capsule 40 mg PO DAILY 01/22/24 01/22/24 Allergies Allergy/AdvReac Type Severity Reaction Status Date / Time morphine Allergy Unknown Itching Verified 02/02/24 09:24 Review of Systems Review of Systems: All systems reviewed & are unremarkable except as noted in HPI and below PMFSH Past Medical History Medical History (Updated 02/02/24 @ 11:25 by Juancarlos Vega MD) Depression with anxiety Duodenal ulcer Fibromyalgia NSAID long-term use Surgical History Surgical History Hx of cholecystectomy Social History Social History Smoking packs per day: 0.5 Smoking cigarettes per day: 10.0 Smoking status: Current every day smoker Tobacco type: cigarettes Alcohol intake: never Substance use: current Substance use type: marijuana Last use: 01/22/24 Do You Feel Safe in your Home?: Yes Lack of Transportation: No Lack of Food: Never True Current Housing: I Have Housing Concerned About Future Housing: No Difficulty Paying Gas/Electric Bills: No Difficulty Paying for Meds: No Currently Unemployed: No Education: Trade/Vocational Certificate Difficulty w/ Childcare or Family Care: No Gender identity (if verbalized by the patient): Female Spiritual care concerns: No Exam Narrative: APPEARANCE: Uncomfortable appearing HEAD: normocephalic, atraumatic. EYES: PERRLA/EOMI, conjunctivae clear. NOSE: Normal no drainage EARS:TMS clear with good light reflex. THROAT: Pharynx clear, no exudate. NECK: Supple. No adenopathy, no masses. RESPIRATORY: Airway patent, respirations nonlabored. Clear to auscultation bilaterally, no rales, rhonchi, wheezing. CARDIOVASCULAR: Regular rate and rhythm without murmurs rubs or gallops. ABDOMINAL: Diffuse abdominal tenderness to palpation MUSCULOSKELETAL: Moves all extremities. Strength/ROM intact, No edema, No calf tenderness. NEURO: Alert. Cranial nerves II through XII intact. Grossly intact SKIN: Warm, dry. Normal Color Course Course Emergency Course: Patient was treated for urinary tract infection and patient was comfortable the plan for discharge and close follow-up with her primary care physician Vital Signs Vital signs: Vital Signs Temperature 97.2 F L 02/02/24 09:42 Pulse Rate 116 H 02/02/24 09:42 Respiratory Rate 18 02/02/24 09:42 Blood Pressure 123/63 02/02/24 09:42 Pulse Oximetry 100 02/02/24 09:42 Temperature 97.2 F L 02/02/24 09:42 Pulse Rate 116 H 02/02/24 09:42 Respiratory Rate 18 02/02/24 09:42 Blood Pressure 123/63 02/02/24 09:42 Pulse Oximetry 100 02/02/24 09:42 MDM - Abdominal Pain MDM Narrative Medical decision making narrative: 43-year-old female presents emergency department for evaluation for lower abdominal pain. Patient is afebrile with no leukocytosis and hemoglobin of 9.7, patient has had recent anemia and this hemoglobin is better than previous. Patient has no acute abnormalities on her CMP UA does show evidence of urinary tract infection and patient was sta
[2024-02-02 10:33] LABS: Basophils Absolute Auto 0.1 K/mm3 (0.0-0.1); Basophils Percent Auto 0.9 % (0.2-1.2); Eosinophils Absolute Auto 0.1 K/mm3 (0-0.3); Hematocrit 33.2 % (37.0-47.0); Hemoglobin 9.7 g/dL (12.0-15.0); Immature Granulocyte Absolute 0.03 K/mm3 (0.00-0.031); Immature Granulocyte Percent A 0.3 % (0-0.5); Lymphocytes Absolute Auto 2.64 K/mm3 (0.9-3.2); Lymphocytes Percent Auto 26.4 % (18.3-44.2); Mean Corpuscular HGB Conc 29.2 g/dl (32-36); Mean Corpuscular Hemoglobin 23.2 pg (26-34); Mean Corpuscular Volume 79.4 fl (80-100); Mean Platelet Volume 10.4 fl (7.4-10.4); Monocytes Absolute Auto 0.7 K/mm3 (0.1-0.6); Monocytes Percent Auto 6.9 % (2.6-8.5); Neutrophils Absolute Auto 6.4 K/mm3 (1.3-6.7); Neutrophils Percent Auto 64.5 % (45.5-73.1); Platelet Count Result 459 k/mm3 (150-375); Red Blood Count 4.18 M/mm3 (4.2-5.4); Red Cell Distribution Width 21.9 % (11.5-14.5)
[2024-02-02 10:37] LABS: Estimated Glomerular Filt Rate > 60
[2024-02-02 10:37] LABS: Appearance Urine Clear (Clear); Bacteria Urine None Seen /hpf; Bilirubin Urine Negative (Negative); Blood Urine 1+ (Negative); Color Urine Yellow (Yellow); Glucose Urine UA Negative (Negative); Ketones Urine Negative (Negative); Leukocyte Esterase Ur 3+ LEU/UL (Negative); Nitrate Urine Negative (Negative); Non Pathogenic Casts 0-2; Protein Urine Negative (Negative); Specific Grav Ur 1.014 (1.001-1.035); Squamous Epithelial Cell Urine Occasional /hpf (Few); Urobilinogen Urine 0.2 mg/dL (<2.0); WBC Urine >100 /hpf (0-3); pH Urine 7.5 (5.0-9.0)
[2024-02-02 10:40] LABS: Add Urine Microscopic? YES
[2024-02-02 10:42] LABS: Lactic Acid Reflex 0.8 mmol/L (0.7-2.0)
[2024-02-02 10:43] LABS: Alanine Aminotransferase 19 U/L (6-35); Albumin Level 4.8 g/dL (3.5-5.1); Alkaline Phosphatase 79 U/L (38-126); Anion Gap 9 mmol/L (4-12); Aspartate Amino Transferase 27 U/L (14-36); Bilirubin,Total 0.6 mg/dL (0.2-1.3); Blood Urea Nitrogen 11 mg/dL (7-17); Calcium 9.4 mg/dL (8.4-10.2); Carbon Dioxide 25 mmol/L (22-30); Chloride 106 mmol/L (98-107); Estimated Glomerular Filt Rate > 60; Glucose 93 mg/dL (65-110); Lipase 64 U/L (23-300); Sodium 140 mmol/L (137-145)
[2024-02-02] MEDS: SODIUM CHLORIDE 0.9% IV 1,000 ML 999 ML IV CONT (10:49)
[2024-02-02] MEDS: ONDANSETRON INJ 4 MG/2 ML VIAL IV PUSH (10:49)
[2024-02-02] MEDS: HYDROmorphone HCL INJ (*CRX) 1 MG/ML SYR 0.5 MG IV PUSH (10:49)
[2024-02-02 11:14] LABS: Platelet Estimate Increased (Adequate)
[2024-02-02 11:17] LABS: Anisocytosis 2+; Hypochromasia 1+
[2024-02-02 11:18] LABS: Microcytosis 1+ (NORMAL); Schistocytes None Seen
[2024-02-02] MEDS: PHENAZOPYRIDINE HCL 100 MG TABLET 200 MG PO (11:50)
[2024-02-02] MEDS: HYDROcodone/acetaminophen (*CRX) 5-325 MG TABLET 1 TAB PO (11:51)
== END 2024-02-02 11:52 | disposition home or self-care (01) ==
PROVIDERS: Emergency Provider Emergency Medicine
DX: N39.0 Urinary tract infection, site not specified (principal); R10.9 Unspecified abdominal pain; F17.210 Nicotine dependence, cigarettes, uncomplicated
CPT/HCPCS: 36415; 74177; 80053; 81001; 81025; 83605; 83690; 85025; 87086; 96361; 96365; 96375; 99284; A9270; J0696; J1170; J2405; J7030; Q9967

== ENCOUNTER 2024-03-04 10:02 | Inpatient (IN) | payer OTHER, SELFPAY ==
--- NOTE | ~2024-03-04 | XR_ITS ---
XR abdomen/kub 1V 03/07/2024 13:15 INDICATION: Continuous abdominal pain. Left lower quadrant pain. TECHNIQUE: KUB COMPARISON: None FINDINGS: Bowel gas pattern is normal. There is no evidence of free air, mass, organomegaly, ascites or obstruction. No abnormal calculi are seen. The bones appear intact. Moderate colonic fecal load ing. There are cholecystectomy clips. IMPRESSION: 1: No acute abdominal abnormality identified. Reviewed, dictated and finalized at location B.
--- NOTE | ~2024-03-04 | CT_ITS ---
EXAMINATION: CT abdomen pelvis w con DATE: 03/04/2024 14:15 INDICATION: Left lower quadrant abdominal pain TECHNIQUE: Computed tomography (CT) of the abdomen and pelvis was performed with 100 mL Omnipaque-350 intravenous contrast. Automated exposure control and iterative reconstruction technique were employe d. The dose-length product was 384.06 mGy-cm. COMPARISON: CT studies dated 02/02/2024 and 01/22/2024 and MRI dated 01/23/2024 FINDINGS: Lung bases are clear. Heart size is normal. No pericardial or pleural effusion. Mild intrahepatic jesu iary ductal dilation which is within normal limits post cholecystectomy with surgical clips the gallb ladder fossa. Common bile duct is normal in diameter. 2.0 cm left adrenal adenoma with low-attenuatio n on prior noncontrast CT and signal dropout on opposed phase imaging of more recent prior MRI. Right adrenal gland, spleen, left kidney and pancreas are normal. 8 mm low-attenuation right renal cyst. 3 mm nonobstructing stone at the upper pole the right kidney. There is diffuse wall thickening of the colon most prominent at the sigmoid colon. There is also some mild stranding from trace stranding and hyperemia of the lateral rectus consistent with pancolitis. Small bowel and appendix are normal. Nader dder is normal. There is a region of hypoenhancement at the fundus of the uterus with normal appearan ce on the CT and MRI studies from one month prior attempted related to phase of contrast with differe ntial including adenomyosis. Bladder is normal. There are bilateral tubal ligation rings, 1 on the le ft and No free intraperitoneal gas or fluid. No pathologically enlarged abdominal or pelvic lymphaden opathy. Bones are unremarkable. IMPRESSION: 1. Diffuse colitis with sigmoid predominance which is likely either infectious or inflammatory in jesus ology. 2. Nonobstructing 3 mm right renal stone. Reviewed, dictated and finalized at location A. IMPRESSION: 1. Diffuse colitis with sigmoid predominance which is likely either infectious or inflammatory in etiology. 2. Nonobstructing 3 mm right renal stone.
[2024-03-04 10:13] VITALS: BP 116/63; PULSE 100; RESP 18; TEMP 36.5; O2SAT 100
[2024-03-04 12:05] LABS: Basophils Percent Auto 0.3 % (0.2-1.2); Eosinophils Absolute Auto 0.1 K/mm3 (0-0.3); Eosinophils Percent Auto 0.7 % (0-4.4); Hematocrit 37.8 % (37.0-47.0); Hemoglobin 11.4 g/dL (12.0-15.0); Immature Granulocyte Absolute 0.04 K/mm3 (0.00-0.031); Immature Granulocyte Percent A 0.3 % (0-0.5); Lymphocytes Absolute Auto 2.01 K/mm3 (0.9-3.2); Lymphocytes Percent Auto 13.9 % (18.3-44.2); Mean Corpuscular HGB Conc 30.2 g/dl (32-36); Mean Corpuscular Hemoglobin 23.9 pg (26-34); Mean Corpuscular Volume 79.2 fl (80-100); Mean Platelet Volume 10.7 fl (7.4-10.4); Monocytes Absolute Auto 0.8 K/mm3 (0.1-0.6); Monocytes Percent Auto 5.3 % (2.6-8.5); Neutrophils Absolute Auto 11.5 K/mm3 (1.3-6.7); Neutrophils Percent Auto 79.5 % (45.5-73.1); Platelet Count Result 529 k/mm3 (150-375); Red Blood Count 4.77 M/mm3 (4.2-5.4); Red Cell Distribution Width 19.8 % (11.5-14.5); White Blood Count 14.4 K/mm3 (4.5-10.0)
[2024-03-04 12:27] LABS: Hypochromasia 1+; Platelet Estimate Slightly Increased (Adequate); Schistocytes None Seen
--- NOTE | 2024-03-04 12:36 | ED.NAVMDI ---
HPI - Nausea/Vomiting/Diarrhea General Chief complaint: Nausea/Vomiting/Diarrhea Stated complaint: diarrhea x 3 weeks Time Seen by Provider: 03/04/24 11:36 History of Present Illness HPI Narrative: Pt presents with LLQ abdominal pain and nausea and vomiting and low grade fever. Pt has a history of diverticulitis and this feels similar. Pt has had some diarrhea but no blood. Related Data Home Medications Medication Instructions Recorded Confirmed alprazolam 1 mg tablet 1 mg PO QID PRN Anxiety 01/22/24 03/04/24 amitriptyline 50 mg tablet 50 mg PO DAILY 01/22/24 03/04/24 famotidine 40 mg tablet (Pepcid) 40 mg PO DAILY 01/22/24 03/04/24 fluoxetine 40 mg capsule 40 mg PO DAILY 01/22/24 03/04/24 cyclobenzaprine 10 mg tablet 10 mg PO TID PRN muscle spasms 03/04/24 03/04/24 meloxicam 15 mg tablet 15 mg PO DAILY 03/04/24 03/04/24 sucralfate 1 gram tablet 1 g PO PRN PRN Stomach Upset 03/04/24 03/04/24 Allergies Allergy/AdvReac Type Severity Reaction Status Date / Time morphine Allergy Unknown Itching Verified 03/04/24 17:11 NSAIDS (Non-Steroidal Allergy Unknown Unknown Verified 03/04/24 17:11 Anti-Inflamma Review of Systems Review of Systems: All systems reviewed & are unremarkable except as noted in HPI and below PMFSH Past Medical History Medical History (Updated 03/04/24 @ 15:25 by Dwain Steward III, DO) Depression with anxiety Duodenal ulcer Fibromyalgia NSAID long-term use Surgical History Surgical History Hx of cholecystectomy Social History Social History Smoking packs per day: 0.5 Smoking cigarettes per day: 10.0 Smoking status: Current every day smoker Tobacco type: cigarettes Alcohol intake: never Substance use: current Substance use type: marijuana Last use: 01/22/24 Do You Feel Safe in your Home?: Yes Lack of Transportation: No Lack of Food: Never True Current Housing: I Have Housing Concerned About Future Housing: No Difficulty Paying Gas/Electric Bills: No Difficulty Paying for Meds: No Currently Unemployed: No Education: Don't Know Difficulty w/ Childcare or Family Care: No Gender identity (if verbalized by the patient): Female Spiritual care concerns: No Exam Const: General: healthy appearing and no acute distress Nutritional Appearance: well nourished Orientation/consciousness: patient oriented x3 Limitations: no limitations HENMT: Head: normal to inspection Neck: Neck: normal visual inspection Resp: Effort & Inspection: normal respiratory effort Auscultation: clear to auscultation bilaterally Cardio: Rate: regular rate Rhythm: regular rhythm GI: GI Palp: Yes Soft to palpation and Yes Tenderness to palpation present (GI) (LLQ) Skin: General skin exam: normal color Rashes: no rashes Wounds: no wounds Neuro: General: patient oriented x3, moves all extremities, no focal motor deficits and CN's II-XI intact bilaterally Speech: normal speech Extrem: General: normal to inspection, no clubbing, cyanosis or edema and no pedal edema Psych: Mental Status: mental status grossly normal Affect: normal affect Attitude: cooperative Course Vital Signs Vital signs: Vital Signs Temperature 97.7 F 03/04/24 10:13 Pulse Rate 100 03/04/24 10:13 Respiratory Rate 18 03/04/24 10:13 Blood Pressure 116/63 03/04/24 10:13 Pulse Oximetry 100 03/04/24 10:13 Oxygen Delivery Room Air 03/04/24 10:13 Temperature 98.2 F 03/04/24 17:23 Pulse Rate 84 03/04/24 17:23 Respiratory Rate 18 03/04/24 17:23 Blood Pressure 105/69 03/04/24 17:23 Pulse Oximetry 100 03/04/24 17:23 Oxygen Delivery Room Air 03/04/24 10:13 MDM - Nausea/Vomiting/Diarrhea MDM Narrative Medical decision making narrative: pt presents with LLQ pain and fever. has hx of divertilulits and seems likely. will check labs an
[2024-03-04 12:45] LABS: Alanine Aminotransferase 13 U/L (6-35); Albumin Level 4.7 g/dL (3.5-5.1); Alkaline Phosphatase 73 U/L (38-126); Anion Gap 14 mmol/L (4-12); Aspartate Amino Transferase 21 U/L (14-36); Bilirubin,Total 0.5 mg/dL (0.2-1.3); Blood Urea Nitrogen 9 mg/dL (7-17); Calcium 9.1 mg/dL (8.4-10.2); Carbon Dioxide 22 mmol/L (22-30); Chloride 104 mmol/L (98-107); Estimated CRCL calculation 105 ml/min; Estimated Glomerular Filt Rate > 60; Glucose 98 mg/dL (65-110); Lipase 81 U/L (23-300); Potassium 3.3 mmol/L (3.4-5.0); Sodium 140 mmol/L (137-145)
--- NOTE | 2024-03-04 13:00 | PC.NURSE ---
MULTIPLE ATTEMPTS FOR IV ACCESS X3 RN'S. REBECA Paz RN WILL ATTEMPT WITH ULTRASOUND FOR ACCESS
--- NOTE | 2024-03-04 13:00 | PC.NURSE ---
PT REFUSING STRAIGHT CATH. STATES WILL TRY TO GIVE URINE SAMPLE WHEN SHE GETS IV FLUIDS
[2024-03-04 13:44] LABS: SPREG INTERNAL CONTROL Positive; Serum Qual hCG Negative
[2024-03-04] MEDS: SODIUM CHLORIDE 0.9% IV 1,000 ML 999 ML IV CONT (13:56)
[2024-03-04] MEDS: ONDANSETRON INJ 4 MG/2 ML VIAL IV PUSH ×2 (14:00→19:49)
[2024-03-04] MEDS: fentaNYL CITRATE INJ (*CRX) 100 MCG/2 ML VIAL 50 MCG IV PUSH (14:00)
[2024-03-04] MEDS: fentaNYL CITRATE INJ (*CRX) 100 MCG/2 ML VIAL IV PUSH (15:21)
[2024-03-04 15:52] LABS: Appearance Urine Clear (Clear); Bilirubin Urine Negative (Negative); Blood Urine 1+ (Negative); Color Urine Yellow (Yellow); Glucose Urine UA Negative (Negative); Ketones Urine Trace mg/dL (Negative); Leukocyte Esterase Ur Negative LEU/UL (Negative); Nitrate Urine Negative (Negative); Protein Urine 1+ mg/dL (Negative); Specific Grav Ur > 1.045 (1.001-1.035); Urobilinogen Urine 0.2 mg/dL (<2.0)
[2024-03-04 16:09] LABS: WBC Urine 0-5 /hpf (0-3)
[2024-03-04 16:10] LABS: Squamous Epithelial Cell Urine Few /hpf (Few)
[2024-03-04 16:11] LABS: Add Urine Microscopic? YES; Bacteria Urine Trace /hpf
[2024-03-04] MEDS: metroNIDAZOLE 500 MG/ISO 100ML 500 MG/100 ML BAG 100 MG IVPB ×2 (16:12→21:11)
[2024-03-04 16:15] VITALS: BP 113/76; PULSE 70; RESP 16; O2SAT 100
--- NOTE | 2024-03-04 17:09 | ADMGEN ---
This patient, Corina Johnson, was admitted to [facility] Surg Room 303-01. Patient/family oriented to hospital policies and general routines including ID bracelet, bed and alarms, visiting hours, pain management, procedures, bathroom and other care routines, personal items, smoking policy, room service/diet, and visiting hours. Information on how to activate the Rapid Response Team has been discussed. Patient/Family are encouraged to report perceived risks to care and to ask questions if they do not understand what they are told or what they should do.
[2024-03-04 17:23] VITALS: BP 105/69; PULSE 84; RESP 18; TEMP 36.8; O2SAT 100
[2024-03-04] MEDS: KCL 20 MEQ/SW 100 ML 100 ML 50 MEQ IVPB (18:00)
[2024-03-04] MEDS: DEXTROSE 5%/0.9% SOD CHL 1,000 ML 100 ML IV CONT (19:49)
[2024-03-04] MEDS: HYDROmorphone HCL INJ (*CRX) 1 MG/ML SYR 0.5 MG IV PUSH ×2 (19:49→23:01)
[2024-03-04 20:04] LABS: Toxigenic C. Diff NEGATIVE (NEGATIVE)
--- NOTE | 2024-03-04 20:10 | PM.IMHP ---
H&P: HPI History of Present Illness Date/Time: 03/04/24 20:10 Chief Complaint: Abdominal pain. Narrative: This is a 43-year-old female with recent diagnosis of gastritis and duodenal ulcer on EGD in January 2024 who presented to the emergency department for evaluation of abdominal pain. The patient provides the following history. She gives a 3 week history of diffuse abdominal cramping and diarrhea. She frequently notices mucus in the stool when wiping though she has not noticed any blood. She is not able to qualify the amount of stools she is having a day. She is eating a bland diet and has been taking anti-diarrheals without improvement. Associated symptoms include sweats, decreased appetite, nausea, and leg cramps. She denies documented fever, vomiting, sick contacts, recent travel and antibiotic use, and personal or family history of inflammatory bowel disease. It should be noted that she had a colonoscopy done last month at the time of her EGD and that showed diverticulosis. Multiple colon biopsies were obtained which appeared to be benign colonic mucosa, negative for active colitis or features of microscopic colitis. In the ED: She was afebrile on arrival with stable vital signs. Labs were significant for a WBC count of 14.4, hemoglobin 11.4, potassium 3.3, BUN 9, creatinine 0.60. Urine was concentrated with 1+ protein and trace ketones. CT of the abdomen and pelvis showed diffuse colitis with sigmoid predominance which is likely other infectious or inflammatory as well as a nonobstructing 3 mm right renal stone. She was started on antibiotics and is being admitted in this setting for further treatment. Review of Systems Review of Systems: 12 systems were reviewed and are negative except for as per HPI. [facility] Past Medical History Medical History (Updated 03/04/24 @ 22:06 by Farhana Loya PA-C) Depression with anxiety Duodenal ulcer Fibromyalgia Gastritis Kidney stone Marijuana use Migraine headache Surgical History Surgical History History of cholecystectomy Social History Social History (Updated 03/04/24 @ 22:03 by Farhana Loya PA-C) Social History: Surrogate medical decision maker: Lori Johnson, mother. Code status: Full code. Smoking packs per day: 0.5 Smoking cigarettes per day: 10.0 Smoking status: Current every day smoker Tobacco type: cigarettes Alcohol intake: never Substance use: current Substance use type: marijuana Last use: 01/22/24 Do You Feel Safe in your Home?: Yes Lack of Transportation: No Lack of Food: Never True Current Housing: I Have Housing Concerned About Future Housing: No Difficulty Paying Gas/Electric Bills: No Difficulty Paying for Meds: No Currently Unemployed: No Education: Don't Know Difficulty w/ Childcare or Family Care: No Additional living arrangements comments: Lives with family in [place]. Additional occupation/education comments: Works at [employer]. Spiritual care concerns: No Meds Home Medications and Allergies Home Medications Medication Instructions Recorded Confirmed Type alprazolam 1 mg tablet 1 mg PO QID PRN Anxiety 01/22/24 03/04/24 History amitriptyline 50 mg tablet 50 mg PO DAILY 01/22/24 03/04/24 History famotidine 40 mg tablet (Pepcid) 40 mg PO DAILY 01/22/24 03/04/24 History fluoxetine 40 mg capsule 40 mg PO DAILY 01/22/24 03/04/24 History hydrocodone 5 mg-acetaminophen 325 5 - 325 tablet PO BID PRN pain 01/26/24 03/04/24 Rx mg tablet (scale score 7-10) #14 tabs cyclobenzaprine 10 mg tablet 10 mg PO TID PRN muscle spasms 03/04/24 03/04/24 History meloxicam 15 mg tablet 15 mg PO DAILY 03/04/24 03/04/24 History sucralfate 1 gram tablet 1 g PO PRN PRN Stomach Upset 03/04/24 03/04/24 History Allergies Allergy/AdvReac Type Severity Reaction Status Date / Time morphine Allergy Unknown Itching Verified 03/04/24 17:11 NSAIDS (Non-Steroidal Allerg
[2024-03-04 20:53] VITALS: BP 116/62; PULSE 74; RESP 16; TEMP 36.3; O2SAT 100
[2024-03-04] MEDS: SUCRALFATE 1 GM TABLET PO (23:01)
[2024-03-05] MEDS: ONDANSETRON INJ 4 MG/2 ML VIAL IV PUSH ×5 (03:44→22:17)
[2024-03-05] MEDS: HYDROmorphone HCL INJ (*CRX) 1 MG/ML SYR 0.5 MG IV PUSH ×2 (03:44→06:16)
[2024-03-05 06:00] VITALS: BP 108/51; PULSE 57; RESP 16; TEMP 36.3; O2SAT 99
[2024-03-05] MEDS: metroNIDAZOLE 500 MG/ISO 100ML 500 MG/100 ML BAG 100 MG IVPB ×3 (06:13→21:20)
[2024-03-05] MEDS: SUCRALFATE 1 GM TABLET PO ×3 (06:14→21:20)
[2024-03-05 07:03] LABS: Hematocrit 29.8 % (37.0-47.0); Hemoglobin 8.7 g/dL (12.0-15.0); Mean Corpuscular HGB Conc 29.2 g/dl (32-36); Mean Corpuscular Hemoglobin 23.7 pg (26-34); Mean Corpuscular Volume 81.2 fl (80-100); Mean Platelet Volume 10.8 fl (7.4-10.4); Platelet Count Result 401 k/mm3 (150-375); Red Blood Count 3.67 M/mm3 (4.2-5.4); Red Cell Distribution Width 19.7 % (11.5-14.5); White Blood Count 12.1 K/mm3 (4.5-10.0)
[2024-03-05 07:12] LABS: Anion Gap 9 mmol/L (4-12); Blood Urea Nitrogen 4 mg/dL (7-17); Calcium 8.3 mg/dL (8.4-10.2); Carbon Dioxide 23 mmol/L (22-30); Chloride 105 mmol/L (98-107); Estimated CRCL calculation 105 ml/min; Estimated Glomerular Filt Rate > 60; Glucose 93 mg/dL (65-110); Magnesium 1.7 mg/dL (1.6-2.3); Potassium 2.9 mmol/L (3.4-5.0); Sodium 137 mmol/L (137-145)
[2024-03-05] MEDS: AMITRIPTYLINE HCL 25 MG TABLET 50 MG PO (08:47)
[2024-03-05] MEDS: FLUoxetine HCL 20 MG CAPSULE 40 MG PO (08:47)
[2024-03-05] MEDS: PANTOPRAZOLE 40 MG TABLET PO ×2 (08:48→21:20)
[2024-03-05] MEDS: POTASSIUM CHLORIDE INJ 40 MEQ in SODIUM CHLORIDE 0.9% IV 500 ML 130 MEQ IVPB (08:51)
[2024-03-05] MEDS: POTASSIUM CHLORIDE 20 MEQ ER TABLET 40 MEQ PO (08:55)
[2024-03-05] MEDS: ENOXAPARIN 40 MG/0.4 ML SYRINGE SUB-Q (08:55)
[2024-03-05] MEDS: HYDROcodone/acetaminophen (*CRX) 5-325 MG TABLET 1 TAB PO ×3 (13:09→22:16)
[2024-03-05 14:00] VITALS: BP 114/69; PULSE 70; RESP 16; TEMP 36.1; O2SAT 100
[2024-03-05] MEDS: MAGNESIUM SULF 4 GM/WATER100ML 4 GM/100 ML BAG IVPB (14:23)
--- NOTE | 2024-03-05 14:26 | PM.IMPN ---
Progress Note: A&P Assessment and Plan (1) Colitis: Code(s): K52.9 - Noninfective gastroenteritis and colitis, unspecified Status: Acute Assessment and Plan: Presented to the ED with complaints of abdominal pain diarrhea over the last couple weeks CT abdomen pelvis shows diffuse colitis with sigmoid predominance either infectious or inflammatory Continue ceftriaxone and Flagyl WBCs is 12.1 today Continue trend labs Zofran for nausea Consider adding Imodium if stool cultures are negative Stool cultures pending C diff negative De-escalated as indicated (2) Hypokalemia: Code(s): E87.6 - Hypokalemia Status: Acute Assessment and Plan: Potassium is 3.3 on admission Currently 2.9 Most likely from diarrhea 40 oral and 40 IV given Trend potassium Replaced as indicated (3) Duodenal ulcer: Code(s): K26.9 - Duodenal ulcer, unspecified as acute or chronic, without hemorrhage or perforation Status: Acute Assessment and Plan: Noted recent ulcer Continue PPI and Carafate (4) Depression with anxiety: Code(s): F41.8 - Other specified anxiety disorders Status: Acute Assessment and Plan: Continue home medications Time Spent With Patient Time: 58 minutes Time with patient: Greater than 35 minutes Subjective Date/time seen: 03/05/24 14:26 Interval history: 03/04/24 20:10 This is a 43-year-old female with recent diagnosis of gastritis and duodenal ulcer on EGD in January 2024 who presented to the emergency department for evaluation of abdominal pain. The patient provides the following history. She gives a 3 week history of diffuse abdominal cramping and diarrhea. She frequently notices mucus in the stool when wiping though she has not noticed any blood. She is not able to qualify the amount of stools she is having a day. She is eating a bland diet and has been taking anti-diarrheals without improvement. Associated symptoms include sweats, decreased appetite, nausea, and leg cramps. She denies documented fever, vomiting, sick contacts, recent travel and antibiotic use, and personal or family history of inflammatory bowel disease. It should be noted that she had a colonoscopy done last month at the time of her EGD and that showed diverticulosis. Multiple colon biopsies were obtained which appeared to be benign colonic mucosa, negative for active colitis or features of microscopic colitis. In the ED: She was afebrile on arrival with stable vital signs. Labs were significant for a WBC count of 14.4, hemoglobin 11.4, potassium 3.3, BUN 9, creatinine 0.60. Urine was concentrated with 1+ protein and trace ketones. CT of the abdomen and pelvis showed diffuse colitis with sigmoid predominance which is likely other infectious or inflammatory as well as a nonobstructing 3 mm right renal stone. She was started on antibiotics and is being admitted in this setting for further treatment. 03/05/2024 Patient is doing okay currently. She states she still having some nausea along with a lot of diarrhea. Currently she denies any chest pain, shortness a breath, vomiting, constipation. She is currently asking for her frequency of Zofran to be increased. Will add [place] for further pain control. Review of Systems Review of Systems: All systems reviewed & are unremarkable except as noted in HPI and below Exam Narrative: General: well-nourished, well-appearing 78-year-old female, sitting up in bed, comfortable, NARD Neuro: awake, alert and oriented x4, speech clear, no focal neuro deficits noted HEENMT: normocephalic, atraumatic, EOMI, sclerae anicteric, moist oral mucosa Respiratory: Clear to auscultation bilaterally without crackles, rhonchi or wheezes, nonlabored breathing Cardio: regular rate, regular rhythm with S1-S2 Abdomen: nondistended, hyperactive bowel sounds, soft, nontender to palpation Extremities: no edema, erythema, or tend
[2024-03-05] MEDS: LACTATED RINGERS 1,000 ML 100 ML IV CONT (17:06)
[2024-03-05 20:20] VITALS: BP 104/68; PULSE 72; RESP 16; TEMP 36; O2SAT 100
[2024-03-06] MEDS: ONDANSETRON INJ 4 MG/2 ML VIAL IV PUSH ×6 (03:00→22:04)
[2024-03-06] MEDS: HYDROcodone/acetaminophen (*CRX) 5-325 MG TABLET 1 TAB PO ×6 (03:00→22:04)
[2024-03-06] MEDS: LACTATED RINGERS 1,000 ML 100 ML IV CONT ×2 (03:04→16:44)
[2024-03-06 04:45] VITALS: BP 109/63; PULSE 78; RESP 16; TEMP 35.7; O2SAT 96
[2024-03-06] MEDS: metroNIDAZOLE 500 MG/ISO 100ML 500 MG/100 ML BAG 100 MG IVPB ×3 (05:59→22:05)
[2024-03-06 06:27] LABS: Basophils Absolute Auto 0.1 K/mm3 (0.0-0.1); Basophils Percent Auto 0.7 % (0.2-1.2); Eosinophils Absolute Auto 0.1 K/mm3 (0-0.3); Eosinophils Percent Auto 1.5 % (0-4.4); Hematocrit 28.7 % (37.0-47.0); Hemoglobin 8.5 g/dL (12.0-15.0); Immature Granulocyte Absolute 0.01 K/mm3 (0.00-0.031); Immature Granulocyte Percent A 0.1 % (0-0.5); Lymphocytes Absolute Auto 2.13 K/mm3 (0.9-3.2); Lymphocytes Percent Auto 29.9 % (18.3-44.2); Mean Corpuscular HGB Conc 29.6 g/dl (32-36); Mean Corpuscular Hemoglobin 23.7 pg (26-34); Mean Corpuscular Volume 79.9 fl (80-100); Mean Platelet Volume 10.9 fl (7.4-10.4); Monocytes Absolute Auto 0.5 K/mm3 (0.1-0.6); Monocytes Percent Auto 6.9 % (2.6-8.5); Neutrophils Absolute Auto 4.3 K/mm3 (1.3-6.7); Neutrophils Percent Auto 60.9 % (45.5-73.1); Platelet Count Result 369 k/mm3 (150-375); Red Blood Count 3.59 M/mm3 (4.2-5.4); Red Cell Distribution Width 19.7 % (11.5-14.5); White Blood Count 7.1 K/mm3 (4.5-10.0)
[2024-03-06 06:36] LABS: Alanine Aminotransferase 12 U/L (6-35); Anion Gap 9 mmol/L (4-12); Aspartate Amino Transferase 15 U/L (14-36); Bilirubin,Total 0.1 mg/dL (0.2-1.3); Calcium 8.3 mg/dL (8.4-10.2); Carbon Dioxide 24 mmol/L (22-30); Chloride 105 mmol/L (98-107); Estimated CRCL calculation 105 ml/min; Estimated Glomerular Filt Rate > 60; Glucose 99 mg/dL (65-110); Magnesium 2.2 mg/dL (1.6-2.3); Sodium 138 mmol/L (137-145)
[2024-03-06 06:37] LABS: Albumin Level 3.4 g/dL (3.5-5.1); Alkaline Phosphatase 53 U/L (38-126)
[2024-03-06 06:41] LABS: Blood Urea Nitrogen < 2 mg/dL (7-17)
[2024-03-06 07:45] VITALS: O2SAT 98
[2024-03-06 07:56] LABS: Platelet Estimate Adequate (Adequate)
[2024-03-06 07:57] LABS: Hypochromasia 1+; Microcytosis 1+ (NORMAL); Schistocytes None Seen
[2024-03-06] MEDS: FLUoxetine HCL 20 MG CAPSULE 40 MG PO (08:32)
[2024-03-06] MEDS: AMITRIPTYLINE HCL 25 MG TABLET 50 MG PO (08:33)
[2024-03-06] MEDS: ENOXAPARIN 40 MG/0.4 ML SYRINGE SUB-Q (08:37)
[2024-03-06] MEDS: PANTOPRAZOLE 40 MG TABLET PO ×2 (10:04→22:05)
[2024-03-06] MEDS: SUCRALFATE 1 GM TABLET PO ×3 (11:07→22:05)
--- NOTE | 2024-03-06 11:38 | PM.IMPN ---
Progress Note: A&P Assessment and Plan (1) Colitis: Code(s): K52.9 - Noninfective gastroenteritis and colitis, unspecified Status: Acute (2) Duodenal ulcer: Code(s): K26.9 - Duodenal ulcer, unspecified as acute or chronic, without hemorrhage or perforation Status: Acute (3) Depression with anxiety: Code(s): F41.8 - Other specified anxiety disorders Status: Acute Plan This is a 43-year-old female with recent diagnosis of gastritis and duodenal ulcer on EGD in January 2024 who presented to the emergency department for evaluation of abdominal pain. The patient provides the following history. She gives a 3 week history of diffuse abdominal cramping and diarrhea. She frequently notices mucus in the stool when wiping though she has not noticed any blood. She is not able to qualify the amount of stools she is having a day. She is eating a bland diet and has been taking anti-diarrheals without improvement. Associated symptoms include sweats, decreased appetite, nausea, and leg cramps. She denies documented fever, vomiting, sick contacts, recent travel and antibiotic use, and personal or family history of inflammatory bowel disease. It should be noted that she had a colonoscopy done last month at the time of her EGD and that showed diverticulosis. Multiple colon biopsies were obtained which appeared to be benign colonic mucosa, negative for active colitis or features of microscopic colitis. Colitis: Code(s): K52.9 - Noninfective gastroenteritis and colitis, unspecified Status: Acute Assessment and Plan: Presented to the ED with complaints of abdominal pain diarrhea over the last couple weeks CT abdomen pelvis shows diffuse colitis with sigmoid predominance either infectious or inflammatory Continue ceftriaxone and Flagyl Patient still has loose stool, feeling nauseous, but patient is afebrile, leukocytosis resolved, continue current antibiotics, Hypokalemia: Code(s): E87.6 - Hypokalemia Status: Acute Assessment and Plan: Potassium is 3.3 on admission Received replacement with potassium chloride, potassium 3.0 Start potassium chloride 40 mg p.o. b.i.d. Duodenal ulcer: Code(s): K26.9 - Duodenal ulcer, unspecified as acute or chronic, without hemorrhage or perforation Status: Acute Assessment and Plan: Noted recent ulcer Continue PPI and Carafate Depression with anxiety: Code(s): F41.8 - Other specified anxiety disorders Status: Acute Assessment and Plan: Continue home medications chronic anemia HB close base line f/u stool guaic Subjective Date/time seen: 03/06/24 11:38 Interval history: I saw examined patient today, patient still has loose stool, abdomen pain is tolerable, still has nausea, denies vomiting. Patient has prior intake per blood pressure still soft, afebrile Exam Narrative: GENERAL: Pleasant, in no acute distress. Well-nourished. - EYES: EOMI. Anicteric. - HENT: Moist mucous membranes. - LUNGS: Clear to auscultation bilaterally, no wheezing, rhonchi, or rales. - CARDIOVASCULAR: Regular rate and rhythm. No murmur. No JVD. - ABDOMEN: Soft, non-tender and non-distended. No palpable masses. - EXTREMITIES: No edema. Peripheral pulses 2+. Non-tender. - NEUROLOGIC: No focal neurological deficits. CN II-XII grossly intact. - PSYCHIATRIC: Awake, Alert and oriented x 3. Appropriate mood and affect. - SKIN: No rashes or lesions. Warm. - LYMPH: No cervical lymphadenopathy. Objective Data Vital Signs Vital Signs: Vital Signs - 24 hr 03/05/24 14:00 03/05/24 20:20 03/06/24 04:45 Temperature 97 F L 96.8 F L 96.2 F L Pulse Rate 70 72 78 Respiratory Rate 16 16 16 Blood Pressure 114/69 104/68 109/63 Pulse Oximetry 100 100 96 Oxygen Delivery Fraction of Inspired Oxygen 03/06/24 07:45 Temperature Pulse Rate Respiratory Rate Blood Pressure Pulse Oxime
[2024-03-06 12:24] LABS: Iron 15 ug/dL (37-170)
[2024-03-06 12:33] LABS: Percent Iron Saturation 4 % (20-50)
[2024-03-06 12:59] LABS: Ferritin 6.83 ng/mL (6.24-137)
[2024-03-06 14:00] VITALS: BP 99/57; PULSE 73; RESP 16; TEMP 36; O2SAT 100
[2024-03-06] MEDS: POTASSIUM CHLORIDE 20 MEQ PACKET (FOR LIQUID) 40 MEQ PO (16:44)
[2024-03-06 20:25] VITALS: BP 125/76; PULSE 73; RESP 18; TEMP 37.2; O2SAT 100
[2024-03-06] MEDS: HYDROmorphone HCL INJ (*CRX) 1 MG/ML SYR 0.5 MG IV PUSH (20:38)
[2024-03-06 22:31] LABS: IFOB Positive Control Positive; Immunochemical Fecal Occult Bl Negative (N)
[2024-03-07] MEDS: HYDROmorphone HCL INJ (*CRX) 1 MG/ML SYR 0.5 MG IV PUSH ×3 (01:25→12:16)
[2024-03-07] MEDS: HYDROcodone/acetaminophen (*CRX) 5-325 MG TABLET 1 TAB PO ×5 (04:25→21:36)
[2024-03-07] MEDS: ONDANSETRON INJ 4 MG/2 ML VIAL IV PUSH ×5 (04:26→21:36)
[2024-03-07] MEDS: LACTATED RINGERS 1,000 ML 100 ML IV CONT ×2 (04:31→18:52)
[2024-03-07 05:35] VITALS: BP 110/66; PULSE 63; RESP 18; TEMP 35.9; O2SAT 99
[2024-03-07] MEDS: metroNIDAZOLE 500 MG/ISO 100ML 500 MG/100 ML BAG 100 MG IVPB ×3 (06:20→21:41)
[2024-03-07] MEDS: SUCRALFATE 1 GM TABLET PO ×4 (08:26→21:36)
--- NOTE | 2024-03-07 08:26 | PM.IMPN ---
Progress Note: A&P Assessment and Plan (1) Colitis: Code(s): K52.9 - Noninfective gastroenteritis and colitis, unspecified Status: Acute (2) Duodenal ulcer: Code(s): K26.9 - Duodenal ulcer, unspecified as acute or chronic, without hemorrhage or perforation Status: Acute (3) Depression with anxiety: Code(s): F41.8 - Other specified anxiety disorders Status: Acute Plan This is a 43-year-old female with recent diagnosis of gastritis and duodenal ulcer on EGD in January 2024 who presented to the emergency department for evaluation of abdominal pain. The patient provides the following history. She gives a 3 week history of diffuse abdominal cramping and diarrhea. She frequently notices mucus in the stool when wiping though she has not noticed any blood. She is not able to qualify the amount of stools she is having a day. She is eating a bland diet and has been taking anti-diarrheals without improvement. Associated symptoms include sweats, decreased appetite, nausea, and leg cramps. She denies documented fever, vomiting, sick contacts, recent travel and antibiotic use, and personal or family history of inflammatory bowel disease. It should be noted that she had a colonoscopy done last month at the time of her EGD and that showed diverticulosis. Multiple colon biopsies were obtained which appeared to be benign colonic mucosa, negative for active colitis or features of microscopic colitis. Acute infective gastroenteritis Patient present ED with chief complaint abdomen pain, associated with nausea vomiting and diarrhea CT abdomen pelvis shows diffuse colitis with sigmoid predominance either infectious or inflammatory Patient leukocytosis Suspecting infective gastroenteritis Patient still has loose stool, feeling nauseous, but patient is afebrile, leukocytosis resolved, continue current antibiotics Stool culture: Pending salmonella and shigella Patient still has abdomen pain today, repeated abdominal x-ray unremarkable Hypokalemia: Received replacement with potassium chloride, potassium 3.0 Received potassium chloride 40 mg p.o. b.i.d. Corrected, potassium 3.8 today Duodenal ulcer: Code(s): K26.9 - Duodenal ulcer, unspecified as acute or chronic, without hemorrhage or perforation Noted recent ulcer Continue PPI and Carafate Depression with anxiety: Code(s): F41.8 - Other specified anxiety disorders Status: Acute Assessment and Plan: Continue home medications chronic anemia HB close base line f/u stool guaic Subjective Date/time seen: 03/07/24 08:26 Interval history: I saw examined patient today, patient still has abdomen pain, had loose stools yesterday, still feel nauseous. Has a poor oral intake, blood pressure becomes stable afebrile Exam Narrative: GENERAL: Pleasant, in no acute distress. Well-nourished. - EYES: EOMI. Anicteric. - HENT: Moist mucous membranes. - LUNGS: Clear to auscultation bilaterally, no wheezing, rhonchi, or rales. - CARDIOVASCULAR: Regular rate and rhythm. No murmur. No JVD. - ABDOMEN: Soft, mid abdominal tender and non-distended. No palpable masses. - EXTREMITIES: No edema. Peripheral pulses 2+. Non-tender. - NEUROLOGIC: No focal neurological deficits. CN II-XII grossly intact. - PSYCHIATRIC: Awake, Alert and oriented x 3. Appropriate mood and affect. - SKIN: No rashes or lesions. Warm. - LYMPH: No cervical lymphadenopathy. Objective Data Vital Signs Vital Signs: Vital Signs - 24 hr 03/06/24 14:00 03/06/24 20:25 03/07/24 05:35 Temperature 96.8 F L 98.9 F 96.6 F L Pulse Rate 73 73 63 Respiratory Rate 16 18 18 Blood Pressure 99/57 L 125/76 110/66 Pulse Oximetry 100 100 99 Intake/Output Intake/Output: Intake & Output 03/04/24 03/05/24 03/06/24 03/07/24 23:59 23:59 23:59 23:59 Intake Total 1250 1430 3754.7 1160 Output Total 1500 1650 700 Balance 1250 -70 2104.7 460 Meds/Results Medicat
[2024-03-07] MEDS: ENOXAPARIN 40 MG/0.4 ML SYRINGE SUB-Q (08:28)
[2024-03-07] MEDS: POTASSIUM CHLORIDE 20 MEQ PACKET (FOR LIQUID) 40 MEQ PO (08:32)
[2024-03-07] MEDS: AMITRIPTYLINE HCL 25 MG TABLET 50 MG PO (08:32)
[2024-03-07] MEDS: FLUoxetine HCL 20 MG CAPSULE 40 MG PO (08:33)
[2024-03-07] MEDS: PANTOPRAZOLE 40 MG TABLET PO (08:33)
[2024-03-07 09:23] LABS: Hematocrit 28.9 % (37.0-47.0); Hemoglobin 8.7 g/dL (12.0-15.0); Mean Corpuscular HGB Conc 30.1 g/dl (32-36); Mean Corpuscular Hemoglobin 24.6 pg (26-34); Mean Corpuscular Volume 81.9 fl (80-100); Mean Platelet Volume 10.6 fl (7.4-10.4); Platelet Count Result 389 k/mm3 (150-375); Red Blood Count 3.53 M/mm3 (4.2-5.4); Red Cell Distribution Width 19.7 % (11.5-14.5); White Blood Count 7.2 K/mm3 (4.5-10.0)
[2024-03-07 09:33] LABS: Anion Gap 5 mmol/L (4-12); Calcium 8.4 mg/dL (8.4-10.2); Carbon Dioxide 29 mmol/L (22-30); Chloride 103 mmol/L (98-107); Estimated CRCL calculation 105 ml/min; Estimated Glomerular Filt Rate > 60; Glucose 92 mg/dL (65-110); Potassium 3.8 mmol/L (3.4-5.0); Sodium 137 mmol/L (137-145)
[2024-03-07 09:56] LABS: Blood Urea Nitrogen < 2 mg/dL (7-17)
[2024-03-07 12:09] VITALS: BP 122/65
[2024-03-07 13:33] LABS: Amphetamine Screen Urine Negative (Negative); Barbiturate Screen Urine Negative (Negative); Benzodiazepines Screen Urine Negative (Negative); Cannabinoid Screen Urine Negative (Negative); Cocaine Screen Urine Negative (Negative); Methadone Screen Urine Negative (Negative); Opiate Screen Urine Positive (Negative); Phencyclidine Screen Urine Negative (Negative)
[2024-03-07 14:00] VITALS: BP 114/59; PULSE 66; RESP 16; TEMP 36.8; O2SAT 100
[2024-03-07 21:28] VITALS: BP 113/66; PULSE 73; RESP 15; TEMP 36.4; O2SAT 100
[2024-03-08] MEDS: HYDROcodone/acetaminophen (*CRX) 5-325 MG TABLET 1 TAB PO ×5 (03:57→21:41)
[2024-03-08] MEDS: ONDANSETRON INJ 4 MG/2 ML VIAL IV PUSH ×3 (03:58→17:30)
[2024-03-08 05:30] VITALS: BP 128/66; PULSE 71; RESP 15; TEMP 36.4; O2SAT 100
[2024-03-08] MEDS: LACTATED RINGERS 1,000 ML 100 ML IV CONT (06:12)
[2024-03-08] MEDS: metroNIDAZOLE 500 MG/ISO 100ML 500 MG/100 ML BAG 100 MG IVPB ×3 (06:13→20:33)
[2024-03-08 06:37] LABS: Anion Gap 8 mmol/L (4-12); Calcium 8.6 mg/dL (8.4-10.2); Carbon Dioxide 27 mmol/L (22-30); Chloride 101 mmol/L (98-107); Estimated CRCL calculation 123 ml/min; Estimated Glomerular Filt Rate > 60; Glucose 89 mg/dL (65-110); Potassium 3.9 mmol/L (3.4-5.0); Sodium 136 mmol/L (137-145)
[2024-03-08 06:57] LABS: Blood Urea Nitrogen < 2 mg/dL (7-17)
[2024-03-08] MEDS: SUCRALFATE 1 GM TABLET PO ×4 (07:16→20:33)
[2024-03-08] MEDS: ENOXAPARIN 40 MG/0.4 ML SYRINGE SUB-Q (08:09)
[2024-03-08] MEDS: POTASSIUM CHLORIDE 20 MEQ PACKET (FOR LIQUID) 40 MEQ PO (08:11)
[2024-03-08] MEDS: FLUoxetine HCL 20 MG CAPSULE 40 MG PO (08:12)
[2024-03-08] MEDS: PANTOPRAZOLE 40 MG TABLET PO (08:12)
[2024-03-08] MEDS: AMITRIPTYLINE HCL 25 MG TABLET 50 MG PO (08:12)
--- NOTE | 2024-03-08 09:14 | PM.IMPN ---
Progress Note: A&P Assessment and Plan (1) Colitis: Code(s): K52.9 - Noninfective gastroenteritis and colitis, unspecified Status: Acute (2) Duodenal ulcer: Code(s): K26.9 - Duodenal ulcer, unspecified as acute or chronic, without hemorrhage or perforation Status: Acute (3) Depression with anxiety: Code(s): F41.8 - Other specified anxiety disorders Status: Acute Plan This is a 43-year-old female with recent diagnosis of gastritis and duodenal ulcer on EGD in January 2024 who presented to the emergency department for evaluation of abdominal pain. The patient provides the following history. She gives a 3 week history of diffuse abdominal cramping and diarrhea. She frequently notices mucus in the stool when wiping though she has not noticed any blood. She is not able to qualify the amount of stools she is having a day. She is eating a bland diet and has been taking anti-diarrheals without improvement. Associated symptoms include sweats, decreased appetite, nausea, and leg cramps. She denies documented fever, vomiting, sick contacts, recent travel and antibiotic use, and personal or family history of inflammatory bowel disease. It should be noted that she had a colonoscopy done last month at the time of her EGD and that showed diverticulosis. Multiple colon biopsies were obtained which appeared to be benign colonic mucosa, negative for active colitis or features of microscopic colitis. Acute infective gastroenteritis Patient present ED with chief complaint abdomen pain, associated with nausea vomiting and diarrhea CT abdomen pelvis shows diffuse colitis with sigmoid predominance either infectious or inflammatory Patient leukocytosis Suspecting infective gastroenteritis Patient still has loose stool, feeling nauseous, but patient is afebrile, leukocytosis resolved, continue current antibiotics Stool culture: negative Campylobacter, Shiga toxin E coli, salmonella and shigella Patient still has abdomen pain today, repeated abdominal x-ray unremarkable Patient still has abdomen pain, nausea, poor intake, patient is afebrile Consult GI for evaluation Hypokalemia: Received replacement with potassium chloride, potassium 3.0 Received potassium chloride 40 mg p.o. b.i.d. Corrected, potassium 3.8 today Duodenal ulcer: Code(s): K26.9 - Duodenal ulcer, unspecified as acute or chronic, without hemorrhage or perforation Noted recent ulcer Continue PPI and Carafate Depression with anxiety: Code(s): F41.8 - Other specified anxiety disorders Status: Acute Assessment and Plan: Continue home medications chronic anemia HB close base line f/u stool guaic Subjective Date/time seen: 03/08/24 09:14 Interval history: I saw examined patient today, patient still has abdomen pain, had no diarrhea today, still feel nauseous. Has a poor oral intake, blood pressure becomes stable afebrile Exam Narrative: GENERAL: Pleasant, in no acute distress. Well-nourished. - EYES: EOMI. Anicteric. - HENT: Moist mucous membranes. - LUNGS: Clear to auscultation bilaterally, no wheezing, rhonchi, or rales. - CARDIOVASCULAR: Regular rate and rhythm. No murmur. No JVD. - ABDOMEN: Soft, mid abdominal tender and non-distended. No palpable masses. - EXTREMITIES: No edema. Peripheral pulses 2+. Non-tender. - NEUROLOGIC: No focal neurological deficits. CN II-XII grossly intact. - PSYCHIATRIC: Awake, Alert and oriented x 3. Appropriate mood and affect. - SKIN: No rashes or lesions. Warm. - LYMPH: No cervical lymphadenopathy. Objective Data Vital Signs Vital Signs: Vital Signs - 24 hr 03/07/24 12:09 03/07/24 14:00 03/07/24 21:28 Temperature 98.3 F 97.6 F Pulse Rate 66 73 Respiratory Rate 16 15 Blood Pressure 122/65 114/59 L 113/66 Pulse Oximetry 100 100 03/08/24 05:30 Temperature 97.6 F Pulse Rate 71 Respiratory Rate 15 Blood Pressure 128/66 Pulse Oximetry 100
[2024-03-08 14:00] VITALS: BP 123/78; PULSE 76; RESP 18; TEMP 36.3; O2SAT 100
[2024-03-08 15:54] LABS: Norovirus RNA PCR, Stool NOT DETECTED
[2024-03-08 20:00] VITALS: O2SAT 100
[2024-03-08 21:02] VITALS: BP 116/57; PULSE 78; RESP 16; TEMP 36.1; O2SAT 99
[2024-03-09] MEDS: HYDROcodone/acetaminophen (*CRX) 5-325 MG TABLET 1 TAB PO ×6 (01:36→21:08)
[2024-03-09] MEDS: ONDANSETRON INJ 4 MG/2 ML VIAL IV PUSH ×6 (01:37→21:08)
[2024-03-09] MEDS: metroNIDAZOLE 500 MG/ISO 100ML 500 MG/100 ML BAG 100 MG IVPB (05:19)
[2024-03-09 06:00] VITALS: BP 123/61; PULSE 74; RESP 16; TEMP 36.1; O2SAT 100
[2024-03-09] MEDS: SUCRALFATE 1 GM TABLET PO ×4 (06:40→21:08)
--- NOTE | 2024-03-09 08:17 | PM.IMPN ---
Progress Note: A&P Assessment and Plan (1) Colitis: Code(s): K52.9 - Noninfective gastroenteritis and colitis, unspecified Status: Acute (2) Duodenal ulcer: Code(s): K26.9 - Duodenal ulcer, unspecified as acute or chronic, without hemorrhage or perforation Status: Acute (3) Depression with anxiety: Code(s): F41.8 - Other specified anxiety disorders Status: Acute Plan This is a 43-year-old female with recent diagnosis of gastritis and duodenal ulcer on EGD in January 2024 who presented to the emergency department for evaluation of abdominal pain. The patient provides the following history. She gives a 3 week history of diffuse abdominal cramping and diarrhea. She frequently notices mucus in the stool when wiping though she has not noticed any blood. She is not able to qualify the amount of stools she is having a day. She is eating a bland diet and has been taking anti-diarrheals without improvement. Associated symptoms include sweats, decreased appetite, nausea, and leg cramps. She denies documented fever, vomiting, sick contacts, recent travel and antibiotic use, and personal or family history of inflammatory bowel disease. It should be noted that she had a colonoscopy done last month at the time of her EGD and that showed diverticulosis. Multiple colon biopsies were obtained which appeared to be benign colonic mucosa, negative for active colitis or features of microscopic colitis. Acute infective gastroenteritis Patient present ED with chief complaint abdomen pain, associated with nausea vomiting and diarrhea CT abdomen pelvis shows diffuse colitis with sigmoid predominance either infectious or inflammatory Patient leukocytosis Suspecting infective gastroenteritis Patient still has loose stool, feeling nauseous, but patient is afebrile, leukocytosis resolved, continue current antibiotics Stool culture: negative Campylobacter, Shiga toxin E coli, salmonella and shigella Patient still has abdomen pain today, repeated abdominal x-ray unremarkable Patient still has abdomen pain, nausea, poor intake, patient is afebrile Consult GI for evaluation. Appreciate GI consultation, inflammatory bowel disease panel is ordered. Increase the Protonix 40 mg b.i.d. p.o. and Carafate p.o. Hypokalemia: Received replacement with potassium chloride, potassium 3.0 Received potassium chloride 40 mg p.o. b.i.d. Corrected, potassium 3.8 today Duodenal ulcer: Code(s): K26.9 - Duodenal ulcer, unspecified as acute or chronic, without hemorrhage or perforation Noted recent ulcer Continue PPI and Carafate Depression with anxiety: Code(s): F41.8 - Other specified anxiety disorders Status: Acute Assessment and Plan: Continue home medications chronic anemia HB close base line f/u stool guaic Subjective Date/time seen: 03/09/24 08:17 Interval history: I saw examined patient today, patient still has abdomen pain after eating, had no diarrhea today, Has a poor oral intake, blood pressure becomes stable afebrile Exam Narrative: GENERAL: Pleasant, in no acute distress. Well-nourished. - EYES: EOMI. Anicteric. - HENT: Moist mucous membranes. - LUNGS: Clear to auscultation bilaterally, no wheezing, rhonchi, or rales. - CARDIOVASCULAR: Regular rate and rhythm. No murmur. No JVD. - ABDOMEN: Soft, mid abdominal tender and non-distended. No palpable masses. - EXTREMITIES: No edema. Peripheral pulses 2+. Non-tender. - NEUROLOGIC: No focal neurological deficits. CN II-XII grossly intact. - PSYCHIATRIC: Awake, Alert and oriented x 3. Appropriate mood and affect. - SKIN: No rashes or lesions. Warm. - LYMPH: No cervical lymphadenopathy. Objective Data Vital Signs Vital Signs: Vital Signs - 24 hr 03/08/24 14:00 03/08/24 20:00 03/08/24 21:02 Temperature 97.3 F L 97 F L Pulse Rate 76 78 Respiratory Rate 18 16 Blood Pressure 123/78 116/57 L Pulse Oximetry 100 100
[2024-03-09 08:31] LABS: Anion Gap 7 mmol/L (4-12); Blood Urea Nitrogen 5 mg/dL (7-17); Calcium 8.5 mg/dL (8.4-10.2); Carbon Dioxide 29 mmol/L (22-30); Chloride 100 mmol/L (98-107); Estimated CRCL calculation 105 ml/min; Estimated Glomerular Filt Rate > 60; Glucose 89 mg/dL (65-110); Potassium 4.2 mmol/L (3.4-5.0); Sodium 136 mmol/L (137-145)
[2024-03-09] MEDS: FLUoxetine HCL 20 MG CAPSULE 40 MG PO (08:58)
[2024-03-09] MEDS: AMITRIPTYLINE HCL 25 MG TABLET 50 MG PO (08:58)
[2024-03-09] MEDS: ENOXAPARIN 40 MG/0.4 ML SYRINGE SUB-Q (08:59)
[2024-03-09] MEDS: PANTOPRAZOLE 40 MG TABLET PO ×2 (08:59→21:08)
--- NOTE | 2024-03-09 09:08 | WPDGICN ---
Assessment and Plan Assessment and plan (1) Colitis: Code(s): K52.9 - Noninfective gastroenteritis and colitis, unspecified Status: Acute (2) Duodenal ulcer: Code(s): K26.9 - Duodenal ulcer, unspecified as acute or chronic, without hemorrhage or perforation Status: Acute (3) Appetite loss: Code(s): R63.0 - Anorexia Status: Acute (4) Weight loss: Code(s): R63.4 - Abnormal weight loss Status: Acute (5) Nausea: Code(s): R11.0 - Nausea Status: Acute (6) Epigastric pain: Code(s): R10.13 - Epigastric pain Status: Acute (7) Abdominal pain, LUQ: Code(s): R10.12 - Left upper quadrant pain Status: Acute (8) SEAMUS (iron deficiency anemia): Qualifiers: Iron deficiency anemia type: unspecified iron deficiency Qualified Code(s): D50.9 - Iron deficiency anemia, unspecified Code(s): D50.9 - Iron deficiency anemia, unspecified Status: Acute (9) Gastritis: Qualifiers: Gastritis type: superficial Chronicity: acute Gastritis bleeding: without bleeding Qualified Code(s): K29.00 - Acute gastritis without bleeding Code(s): K29.70 - Gastritis, unspecified, without bleeding Status: Acute Plan 1) Epigastric pain/ left upper quadrant pain/ duodenal ulcer/gastritis/nausea/ early satiety /appetite loss/weight loss: S/P CCX. EGD 01/24/2024 showed moderate ulcerative gastritis in the antrum and a 15-18 mm duodenal bulb ulcer. Biopsies were negative for H. pylori. Patient has been having ongoing abdominal pain, nausea, and poor oral intake. Pain is exacerbated with solid foods but improved with liquid diet. Repeat EGD is planned for May 2024 to assess for healing of ulcer. Prior to admission patient was taking b.i.d. PPI as prescribed. She denies any NSAID use. She has lost approximately 30 lb over the past few months. her appetite she states comes and goes as she states that she is hungry but knows that she is going to have pain after meals. She complains of mostly left upper quadrant abdominal discomfort along with bloating in this area. she admits to intermittent nausea but denies any vomiting. MRCP performed last admission was normal. no findings on recent CT to explain upper GI symptoms. Patient smokes half a pack per day and uses marijuana regularly but denies any alcohol use. DDX: Peptic ulcer disease vs inflammatory bowel disease vs pancreatic etiology Increase Protonix to 40 mg b.i.d. Continue Carafate q.i.d. Avoid NSAIDs Will check IBD panel to further evaluate for possible Crohn's disease Repeat Lipase Bentyl 10 mg before meals repeat EGD in May to document mucosal healing of previously noted duodenal ulcer 2) Diarrhea /abnormal imaging digestive- colitis: Colonoscopy 01/24/2024 revealed diverticulosis but was otherwise normal. Random colon biopsies were negative for microscopic colitis or any signs acute or chronic inflammation. Family history negative for CRC or IBD. Patient has had multiple abdominal imaging over the past few months but most recent 1 this admission showed diffuse colitis with sigmoid predominance. stool studies negative for infectious etiology including C diff. Fecal occult blood negative. Patient is on ceftriaxone and Flagyl. Patient was previously having 10 or more loose to liquid bowel movements daily but states that she is now having 3 loose to liquid postprandial bowel movements. Previous complaints of hematochezia and fecal incontinence have resolved. S/P CCX > 20 years ago. Denies any bowel movement since admission. Colitis noted on imaging likely acute infectious / inflammatory etiology but but small bowel Crohn's can not be excluded Bentyl prior to meals as mentioned above will check IBD panel along with fecal calprotectin if symptoms do not improve and if above workup is unremarkable may consider Questran 3) SEAMUS: On admission HGB 11 and HC
[2024-03-09 10:38] LABS: Lipase 51 U/L (23-300)
[2024-03-09] MEDS: DICYCLOMINE HCL 10 MG CAPSULE PO ×2 (10:53→15:30)
[2024-03-09 14:00] VITALS: BP 100/70; PULSE 70; RESP 18; TEMP 35.8; O2SAT 99
[2024-03-09 17:17] VITALS: BP 120/80
[2024-03-09 20:00] VITALS: O2SAT 99
[2024-03-09 21:04] VITALS: BP 115/68; PULSE 77; RESP 16; TEMP 36.6; O2SAT 99
[2024-03-10 04:38] VITALS: BP 112/78
[2024-03-10] MEDS: HYDROcodone/acetaminophen (*CRX) 5-325 MG TABLET 1 TAB PO ×2 (04:39→08:36)
[2024-03-10 05:14] VITALS: BP 113/78; PULSE 76; RESP 16; TEMP 36.6; O2SAT 100
[2024-03-10] MEDS: DICYCLOMINE HCL 10 MG CAPSULE PO (06:08)
[2024-03-10] MEDS: SUCRALFATE 1 GM TABLET PO (06:09)
[2024-03-10] MEDS: FLUoxetine HCL 20 MG CAPSULE 40 MG PO (08:21)
[2024-03-10] MEDS: PANTOPRAZOLE 40 MG TABLET PO (08:21)
[2024-03-10] MEDS: POTASSIUM CHLORIDE 20 MEQ PACKET (FOR LIQUID) 40 MEQ PO (08:21)
[2024-03-10] MEDS: AMITRIPTYLINE HCL 25 MG TABLET 50 MG PO (08:21)
--- NOTE | 2024-03-10 08:26 | PM.IMPN ---
Progress Note: A&P Assessment and Plan (1) Colitis: Code(s): K52.9 - Noninfective gastroenteritis and colitis, unspecified Status: Acute (2) Duodenal ulcer: Code(s): K26.9 - Duodenal ulcer, unspecified as acute or chronic, without hemorrhage or perforation Status: Acute (3) Depression with anxiety: Code(s): F41.8 - Other specified anxiety disorders Status: Acute Plan This is a 43-year-old female with recent diagnosis of gastritis and duodenal ulcer on EGD in January 2024 who presented to the emergency department for evaluation of abdominal pain. The patient provides the following history. She gives a 3 week history of diffuse abdominal cramping and diarrhea. She frequently notices mucus in the stool when wiping though she has not noticed any blood. She is not able to qualify the amount of stools she is having a day. She is eating a bland diet and has been taking anti-diarrheals without improvement. Associated symptoms include sweats, decreased appetite, nausea, and leg cramps. She denies documented fever, vomiting, sick contacts, recent travel and antibiotic use, and personal or family history of inflammatory bowel disease. It should be noted that she had a colonoscopy done last month at the time of her EGD and that showed diverticulosis. Multiple colon biopsies were obtained which appeared to be benign colonic mucosa, negative for active colitis or features of microscopic colitis. Acute infective gastroenteritis Patient present ED with chief complaint abdomen pain, associated with nausea vomiting and diarrhea CT abdomen pelvis shows diffuse colitis with sigmoid predominance either infectious or inflammatory Patient leukocytosis Suspecting infective gastroenteritis Patient still has loose stool, feeling nauseous, but patient is afebrile, leukocytosis resolved, continue current antibiotics Stool culture: negative Campylobacter, Shiga toxin E coli, salmonella and shigella Patient still has abdomen pain today, repeated abdominal x-ray unremarkable Patient still has abdomen pain, nausea, poor intake, patient is afebrile Consult GI for evaluation. Appreciate GI consultation, inflammatory bowel disease panel is ordered. Increase the Protonix 40 mg b.i.d. p.o. and Carafate p.o. Hypokalemia: Received replacement with potassium chloride, potassium 3.0 Received potassium chloride 40 mg p.o. b.i.d. Corrected Duodenal ulcer: Code(s): K26.9 - Duodenal ulcer, unspecified as acute or chronic, without hemorrhage or perforation Noted recent ulcer Continue Protonix 40 mg b.i.d. p.o. and Carafate per GI recommendation Depression with anxiety: Code(s): F41.8 - Other specified anxiety disorders Status: Acute Assessment and Plan: Stable Continue home medications chronic anemia HB close base line f/u stool guaic : Negative Subjective Date/time seen: 03/10/24 08:26 Interval history: Patient has no new issue even overnight, tolerated diet well, blood pressure becomes stable afebrile Exam Narrative: GENERAL: Pleasant, in no acute distress. Well-nourished. - EYES: EOMI. Anicteric. - HENT: Moist mucous membranes. - LUNGS: Clear to auscultation bilaterally, no wheezing, rhonchi, or rales. - CARDIOVASCULAR: Regular rate and rhythm. No murmur. No JVD. - ABDOMEN: Soft, non-tender and non-distended. No palpable masses. - EXTREMITIES: No edema. Peripheral pulses 2+. Non-tender. - NEUROLOGIC: No focal neurological deficits. CN II-XII grossly intact. - PSYCHIATRIC: Awake, Alert and oriented x 3. Appropriate mood and affect. - SKIN: No rashes or lesions. Warm. - LYMPH: No cervical lymphadenopathy. Objective Data Vital Signs Vital Signs: Vital Signs - 24 hr 03/09/24 14:00 03/09/24 17:17 03/09/24 21:04 Temperature 96.4 F L 97.9 F Pulse Rate 70 77 Respiratory Rate 18 16 Blood Pressure 100/70 120/80 115/68 Pulse Oximetry 99 99 Oxygen Delivery 03/09/24 20:
[2024-03-10] MEDS: ENOXAPARIN 40 MG/0.4 ML SYRINGE SUB-Q (08:37)
[2024-03-10] MEDS: ONDANSETRON INJ 4 MG/2 ML VIAL IV PUSH (08:37)
[2024-03-10 09:14] LABS: Basophils Absolute Auto 0.1 K/mm3 (0.0-0.1); Eosinophils Absolute Auto 0.1 K/mm3 (0-0.3); Eosinophils Percent Auto 1.6 % (0-4.4); Hematocrit 31.9 % (37.0-47.0); Hemoglobin 9.4 g/dL (12.0-15.0); Immature Granulocyte Absolute 0.03 K/mm3 (0.00-0.031); Immature Granulocyte Percent A 0.4 % (0-0.5); Lymphocytes Absolute Auto 2.22 K/mm3 (0.9-3.2); Lymphocytes Percent Auto 30.4 % (18.3-44.2); Mean Corpuscular HGB Conc 29.5 g/dl (32-36); Mean Corpuscular Hemoglobin 23.5 pg (26-34); Mean Corpuscular Volume 79.8 fl (80-100); Monocytes Absolute Auto 0.8 K/mm3 (0.1-0.6); Monocytes Percent Auto 11.2 % (2.6-8.5); Neutrophils Percent Auto 55.4 % (45.5-73.1); Platelet Count Result 437 k/mm3 (150-375); Red Cell Distribution Width 19.8 % (11.5-14.5); White Blood Count 7.3 K/mm3 (4.5-10.0)
[2024-03-10 09:21] LABS: Anion Gap 7 mmol/L (4-12); Blood Urea Nitrogen 7 mg/dL (7-17); Carbon Dioxide 30 mmol/L (22-30); Chloride 99 mmol/L (98-107); Estimated CRCL calculation 105 ml/min; Estimated Glomerular Filt Rate > 60; Glucose 97 mg/dL (65-110); Potassium 4.5 mmol/L (3.4-5.0); Sodium 136 mmol/L (137-145)
[2024-03-10 09:37] LABS: Anisocytosis 1+; Hypochromasia 1+; Platelet Estimate Adequate (Adequate); Schistocytes None Seen; Target Cells 1+
[2024-03-11 22:09] LABS: ANCA Screen Negative (Negative)
[2024-03-12 03:29] LABS: Immunoglobulin A 207 mg/dL (47-310); TTG IGA AB <1.0 U/mL
[2024-03-13 10:39] LABS: Myeloperoxidase Ab <1.0 AI (<1.0); Proteinase-3 Ab <1.0 AI (<1.0)
[2024-03-16 14:18] LABS: S cerevisiae Ab (IgA) 23.3 U (<=20.0); S cerevisiae Ab (IgG) 23.6 U (<=20.0)
[2024-03-17 16:59] LABS: Calprotectin, Stool 45 mcg/g
[2024-03-18 22:59] LABS: Pancreatic Elastase, Stool >500 mcg/g
== END 2024-03-10 10:40 | disposition home or self-care (01) | DRG 249 ==
LOC: ANHED 15:25 → ANH3MEDSUR 16:15
PROVIDERS: Nurse Practitioner; Nurse Practitioner Family; Physician Assistant; Admitting Provider General Practice; Emergency Provider Emergency Medicine; PCP Nurse Practitioner Family; Visit Provider Hospitalist
DX: K52.9 Noninfective gastroenteritis and colitis, unspecified (principal); K26.9 Duodenal ulcer, unspecified as acute or chronic, without hemorrhage or perforation; E86.0 Dehydration; D50.9 Iron deficiency anemia, unspecified; E87.6 Hypokalemia; F41.8 Other specified anxiety disorders; F17.210 Nicotine dependence, cigarettes, uncomplicated; Z90.49 Acquired absence of other specified parts of digestive tract; Z79.1 Long term (current) use of non-steroidal anti-inflammatories (NSAID)
CPT/HCPCS: 36415; 74018; 74177; 80048; 80053; 80307; 81001; 82274; 82653; 82728; 82784; 83540; 83550; 83690; 83735; 83993; 84703; 85025; 85027; 86036; 86364; 86671; 87045; 87427; 87449; 87493; 87798; 96361; 96365; 96374; 96375; 96376; 99285; A9270; G0378; G0379; J0696; J1170; J1650; J1836; J2405; J3010; J3475; J3480; J7030; J7040; J7042; J7120; Q9967

== ENCOUNTER 2024-03-12 12:47 | Emergency (ER) | payer OTHER, SELFPAY ==
--- NOTE | ~2024-03-12 | CT_ITS ---
EXAMINATION: CT cervical spine wo con DATE: 03/12/2024 14:15 INDICATION: Syncope. Head injury. TECHNIQUE: Computed tomography (CT) of the cervical spine was performed without intravenous contrast. Automated exposure control and iterative reconstruction technique were employed. The dose-length pro duct was 605.33 mGy-cm. COMPARISON: None FINDINGS: The thyroid is enlarged. There is kyphosis of cervical spine. There is 8 degrees dextrocurv ature of cervical spine. Vertebral body heights are normal. Intervertebral disc heights are normal. T he following disc levels are specifically discussed: C2-C3: There is no uncovertebral joint osteoarthritis. There is mild right facet joint osteoarthritis . There is no neural foraminal stenosis. There is no central canal stenosis. C3-C4: There is moderate bilateral uncovertebral joint osteoarthritis. There is no facet joint osteoa rthritis. There is no neural foraminal stenosis. There is no central canal stenosis. C4-C5: There is mild bilateral uncovertebral joint osteoarthritis. There is no facet joint osteoarthr itis. There is no neural foraminal stenosis. There is no central canal stenosis. C5-C6: There is mild right and moderate left uncovertebral joint osteoarthritis. There is no facet shirley int osteoarthritis. There is mild left neural foraminal stenosis. There is mild central canal stenosi s. C6-C7: There is mild left uncovertebral joint osteoarthritis. There is mild bilateral facet joint ost eoarthritis. There is no neural foraminal stenosis. There is no central canal stenosis. C7-T1: There is no uncovertebral joint osteoarthritis. There is moderate right and mild left facet shirley int osteoarthritis. There is no neural foraminal stenosis. There is no central canal stenosis. IMPRESSION: 1. No fracture. 2. Mild cervical spondylosis. Reviewed, dictated and finalized at location A.
--- NOTE | ~2024-03-12 | XR_ITS ---
XR chest 1V portable Ordering provider: Adrian Quiroga MD History: 43 years Female with . TRANSIENT ALTERATION OF AWARENESS . Comparison: April 03, 2021 FINDINGS: MEDIASTINUM: The cardiac silhouette is slightly enlarged. LUNGS: No infiltrates, effusions or pneumothorax. OTHER: No free air under the diaphragm. IMPRESSION: No acute cardiopulmonary pathology. Reviewed, dictated and finalized at location A.
--- NOTE | ~2024-03-12 | CT_ITS ---
EXAMINATION: CT brain wo con DATE: 03/12/2024 14:15 INDICATION: Head injury. Syncope. TECHNIQUE: Computed tomography (CT) of the head was performed without intravenous contrast. The mA wa s adjusted according to patient size. Iterative reconstruction technique was employed. The dose-lengt h product was 172.91 mGy-cm. COMPARISON: None FINDINGS: There is no intracranial hemorrhage, acute infarction, or abnormal intracranial mass lesion . The ventricles are normal in size. The paranasal sinuses are clear. The orbits are normal. The mast oid air cells are normal. There is cerumen in the external auditory canals. IMPRESSION: 1. Normal brain. Reviewed, dictated and finalized at location A. IMPRESSION: 1. Normal brain.
[2024-03-12 12:48] VITALS: BP 98/60; PULSE 104; RESP 15; TEMP 36.6; O2SAT 99
--- NOTE | 2024-03-12 12:57 | ECG_ITS ---
Test Date: 2024-03-12 13:03:35 Measurements Intervals [place] Rate: 97 P: 53 GA: 166 QRS: 46 QRSD: 93 T: 39 QT: 334 QTc: 426 Interpretive Statements SINUS RHYTHM POSSIBLE LEFT ATRIAL ENLARGEMENT [-0.1mV P-WAVE IN V1/V2] NONSPECIFIC T-WAVE ABNORMALITY ABNORMAL ECG No previous ECG available for comparison Electronically Signed On 03-13-2024 11:01:13 CDT by Mark Anthony Brown M.D.
[2024-03-12 13:07] VITALS: PULSE 105
[2024-03-12] MEDS: SODIUM CHLORIDE 0.9% IV 2,000 ML 999 ML IV CONT (13:14)
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
[2024-03-12 13:34] LABS: Basophils Absolute Auto 0.1 K/mm3 (0.0-0.1); Basophils Percent Auto 0.8 % (0.2-1.2); Eosinophils Absolute Auto 0.2 K/mm3 (0-0.3); Eosinophils Percent Auto 1.6 % (0-4.4); Hematocrit 30.1 % (37.0-47.0); Hemoglobin 9.1 g/dL (12.0-15.0); Immature Granulocyte Absolute 0.05 K/mm3 (0.00-0.031); Immature Granulocyte Percent A 0.5 % (0-0.5); Lymphocytes Absolute Auto 2.81 K/mm3 (0.9-3.2); Lymphocytes Percent Auto 26.9 % (18.3-44.2); Mean Corpuscular HGB Conc 30.2 g/dl (32-36); Mean Corpuscular Volume 79.4 fl (80-100); Mean Platelet Volume 10.4 fl (7.4-10.4); Monocytes Percent Auto 9.8 % (2.6-8.5); Neutrophils Absolute Auto 6.3 K/mm3 (1.3-6.7); Neutrophils Percent Auto 60.4 % (45.5-73.1); Platelet Count Result 418 k/mm3 (150-375); Red Blood Count 3.79 M/mm3 (4.2-5.4); Red Cell Distribution Width 19.8 % (11.5-14.5); White Blood Count 10.5 K/mm3 (4.5-10.0)
[2024-03-12 13:48] LABS: Lactic Acid Reflex 1.7 mmol/L (0.7-2.0)
[2024-03-12 13:50] LABS: Alanine Aminotransferase 13 U/L (6-35); Alkaline Phosphatase 52 U/L (38-126); Anion Gap 11 mmol/L (4-12); Aspartate Amino Transferase 21 U/L (14-36); Bilirubin,Total 0.2 mg/dL (0.2-1.3); Blood Urea Nitrogen 11 mg/dL (7-17); Calcium 8.5 mg/dL (8.4-10.2); Carbon Dioxide 22 mmol/L (22-30); Chloride 102 mmol/L (98-107); Estimated CRCL calculation 105 ml/min; Estimated Glomerular Filt Rate > 60; Glucose 121 mg/dL (65-110); Lipase 68 U/L (23-300); Magnesium 1.8 mg/dL (1.6-2.3); Potassium 3.5 mmol/L (3.4-5.0); Sodium 135 mmol/L (137-145)
[2024-03-12 14:01] LABS: Troponin I < 0.012 ng/mL (0.000-0.034)
[2024-03-12 14:28] VITALS: BP 104/60; BP 109/68; BP 112/72; PULSE 80; PULSE 83; PULSE 85
[2024-03-12 15:41] LABS: Add Urine Microscopic? YES; Appearance Urine Clear (Clear); Bacteria Urine None Seen /hpf; Bilirubin Urine Negative (Negative); Blood Urine Negative (Negative); Color Urine Yellow (Yellow); Glucose Urine UA Negative (Negative); Ketones Urine Negative (Negative); Leukocyte Esterase Ur 1+ LEU/UL (Negative); Nitrate Urine Negative (Negative); Protein Urine Negative (Negative); RBC Urine 0-2 /hpf (0-2); Specific Grav Ur 1.015 (1.001-1.035); Squamous Epithelial Cell Urine Few /hpf (Few); Urobilinogen Urine 0.2 mg/dL (<2.0)
[2024-03-12] MEDS: ACETAMINOPHEN 500 MG TABLET 1000 MG PO (15:43)
[2024-03-12 15:44] VITALS: BP 117/63; PULSE 80; RESP 14; O2SAT 100
[2024-03-12 15:47] LABS: BEDSIDEPREGUCG Negative
--- NOTE | 2024-03-12 16:05 | ECG_ITS ---
Test Date: 2024-03-12 16:10:29 Measurements Intervals [place] Rate: 77 P: 45 HI: 188 QRS: 39 QRSD: 89 T: 48 QT: 398 QTc: 452 Interpretive Statements SINUS RHYTHM NORMAL ELECTROCARDIOGRAM Compared to ECG 03/12/2024 13:03:35 T-wave abnormality no longer present Electronically Signed On 03-13-2024 11:11:48 CDT by Mark Anthony Brown M.D.
[2024-03-12 16:46] LABS: Troponin I < 0.012 ng/mL (0.000-0.034)
[2024-03-12 17:14] VITALS: BP 106/69; PULSE 75; RESP 18; TEMP 36.4; O2SAT 100
== END 2024-03-12 17:20 | disposition home or self-care (01) ==
PROVIDERS: Emergency Provider Emergency Medicine; PCP Nurse Practitioner Family
DX: R55 Syncope and collapse (principal); S01.111A Laceration without foreign body of right eyelid and periocular area, initial encounter; K52.9 Noninfective gastroenteritis and colitis, unspecified; E86.0 Dehydration; F41.8 Other specified anxiety disorders; M79.7 Fibromyalgia; Z87.442 Personal history of urinary calculi; F17.210 Nicotine dependence, cigarettes, uncomplicated; R94.31 Abnormal electrocardiogram [ECG] [EKG]; W18.39XA Other fall on same level, initial encounter
CPT/HCPCS: 12011; 36415; 70450; 71045; 72125; 80053; 81001; 81025; 83605; 83690; 83735; 84484; 85025; 87077; 87086; 87088; 93005; 96360; 96361; 99284; A9270; J7030

== ENCOUNTER 2024-03-22 13:58 | Outpatient (CLI) | payer OTHER, SELFPAY ==
--- NOTE | ~2024-03-22 | XR_ITS ---
EXAMINATION: XR knee RT 3V DATE: 03/22/2024 14:15 INDICATION: Right knee pain. TECHNIQUE: 3 views of right knee were obtained. COMPARISON: None. FINDINGS: Bone alignment is normal. No fracture. There is mild osteoarthritis of patellofemoral corey rtment. No knee joint effusion. IMPRESSION: 1. Mild right knee osteoarthritis. Reviewed, dictated and finalized at location E.
== END 2024-03-22 13:59 | disposition home or self-care (01) ==
PROVIDERS: PCP Nurse Practitioner Family; Visit Provider Nurse Practitioner Family
DX: M25.561 Pain in right knee (principal); M17.11 Unilateral primary osteoarthritis, right knee
CPT/HCPCS: 73562

== ENCOUNTER 2024-04-27 11:35 | Outpatient (CLI) | payer OTHER, SELFPAY ==
[2024-04-27 12:06] LABS: Basophils Percent Auto 0.4 % (0.2-1.2); Eosinophils Absolute Auto 0.1 K/mm3 (0-0.3); Eosinophils Percent Auto 0.6 % (0-4.4); Hematocrit 30.4 % (37.0-47.0); Hemoglobin 9.1 g/dL (12.0-15.0); Immature Granulocyte Absolute 0.04 K/mm3 (0.00-0.031); Immature Granulocyte Percent A 0.4 % (0-0.5); Lymphocytes Absolute Auto 1.91 K/mm3 (0.9-3.2); Lymphocytes Percent Auto 18.2 % (18.3-44.2); Mean Corpuscular HGB Conc 29.9 g/dl (32-36); Mean Corpuscular Hemoglobin 23.3 pg (26-34); Mean Corpuscular Volume 77.7 fl (80-100); Mean Platelet Volume 9.3 fl (7.4-10.4); Monocytes Absolute Auto 0.8 K/mm3 (0.1-0.6); Monocytes Percent Auto 7.7 % (2.6-8.5); Neutrophils Absolute Auto 7.6 K/mm3 (1.3-6.7); Neutrophils Percent Auto 72.7 % (45.5-73.1); Platelet Count Result 421 k/mm3 (150-375); Red Blood Count 3.91 M/mm3 (4.2-5.4); Red Cell Distribution Width 19.8 % (11.5-14.5); White Blood Count 10.5 K/mm3 (4.5-10.0)
[2024-04-27 12:17] LABS: Alanine Aminotransferase 21 U/L (6-35); Albumin Level 4.4 g/dL (3.5-5.1); Alkaline Phosphatase 95 U/L (38-126); Anion Gap 8 mmol/L (4-12); Aspartate Amino Transferase 24 U/L (14-36); Bilirubin,Total 0.2 mg/dL (0.2-1.3); Blood Urea Nitrogen 14 mg/dL (7-17); Calcium 9.4 mg/dL (8.4-10.2); Carbon Dioxide 23 mmol/L (22-30); Chloride 106 mmol/L (98-107); Cholesterol 285 mg/dL (0-200); Estimated Glomerular Filt Rate > 60; Glucose 87 mg/dL (65-110); HDL Direct 61 mg/dL; Potassium 4.4 mmol/L (3.4-5.0); Sodium 137 mmol/L (137-145); Triglycerides 236 mg/dL (<150)
[2024-04-27 12:19] LABS: Iron 29 ug/dL (37-170)
[2024-04-27 12:28] LABS: Percent Iron Saturation 7 % (20-50)
[2024-04-27 12:29] LABS: LDL Cholesterol Direct 153 mg/dL
[2024-04-27 12:51] LABS: Thyroid Stimulating Hormone Reflex 0.144 uIU/mL (0.465-4.68)
[2024-04-27 12:52] LABS: Platelet Estimate Adequate (Adequate)
[2024-04-27 12:53] LABS: Anisocytosis 1+; Hypochromasia 1+; Microcytosis 1+ (NORMAL); Schistocytes None Seen
[2024-04-27 13:23] LABS: Folic Acid 4.4 ng/mL (2.76->20)
[2024-04-27 14:25] LABS: Free T4 Free Thyroxine Reflex 0.69 ng/dL (0.78-2.19)
== END 2024-04-27 11:36 | disposition home or self-care (01) ==
LOC: ANHLAB 11:37
PROVIDERS: PCP Nurse Practitioner Family; Visit Provider Nurse Practitioner Family
DX: F41.8 Other specified anxiety disorders (principal); R11.0 Nausea; D50.9 Iron deficiency anemia, unspecified; Z13.220 Encounter for screening for lipoid disorders
CPT/HCPCS: 36415; 80053; 80061; 82607; 82746; 83540; 83550; 84439; 84443; 85025

== ENCOUNTER 2024-06-01 01:25 | Day surgery (SDC) | payer OTHER, SELFPAY ==
[2024-05-18 15:27] VITALS: BMI 25.9
--- NOTE | 2024-06-01 10:37 | WPDANESEPPF ---
Anes - Initial Pre Proc Eval Procedure: Operation Date: 06/01/24 11:30 Proposed Procedures p Esophagogastroduodenoscopy - Zachary Fernández MD Date/Time: 06/01/24 10:37 Surgeon: Zachary Fernández MD Pre Op Diagnosis: Duodenal ulcer, unspecified as acute or chronic Patient Data Age: 44 Gender: F Height: 1.73 m Weight: 77.5 kg Allergies Allergy/AdvReac Type Severity Reaction Status Date / Time morphine Allergy Unknown Itching Verified 06/01/24 10:22 NSAIDS (Non-Steroidal Allergy Unknown Unknown Verified 06/01/24 10:22 Anti-Inflamma Home Medications Medication Instructions Recorded Confirmed Type alprazolam 1 mg tablet 1 mg PO QID PRN Anxiety 01/22/24 06/01/24 History fluoxetine 40 mg capsule 40 mg PO DAILY 01/22/24 06/01/24 History meloxicam 15 mg tablet 15 mg PO DAILY 03/04/24 06/01/24 History amitriptyline 50 mg tablet 75 mg PO DAILY #45 tabs 03/30/24 06/01/24 Rx dicyclomine 20 mg tablet 20 mg PO TID #90 tabs 03/30/24 06/01/24 Rx famotidine 40 mg tablet (Pepcid) 40 mg PO DAILY #30 tabs 03/30/24 06/01/24 Rx sucralfate 1 gram tablet 1 g PO TID PRN Stomach Upset #90 03/30/24 06/01/24 Rx tabs acetaminophen-caffeine 500 mg-65 1 tablet PO Q4H PRN Pain 04/16/24 06/01/24 History mg tablet (Excedrin Tension Headache) cyclobenzaprine 10 mg tablet 10 mg PO TID PRN muscle spasms #90 04/16/24 06/01/24 Rx tabs ondansetron HCl 8 mg tablet 8 mg PO Q8H PRN nausea and 04/16/24 06/01/24 Rx vomiting #20 tabs sumatriptan succinate 50 mg tablet See Rx Instructions PO .COMPLEX 04/16/24 06/01/24 Rx #14 tabs ferrous sulfate 325 mg (65 mg 325 mg PO DAILY #90 tabs 04/28/24 06/01/24 Rx iron) tablet,delayed release pantoprazole 40 mg tablet,delayed See Rx Instructions .Route 05/04/24 06/01/24 Rx release .COMPLEX #60 tabs hydrocodone 5 mg-acetaminophen 325 1 tablet PO BID PRN pain (scale 05/25/24 06/01/24 Rx mg tablet score 7-10) #60 tabs Patient hx anesthesia problems: none Family hx anesthesia problems: none Results Review: All pre-operative results and documents have been reviewed as part of the pre-operative evaluation. [facility] Past Medical History Medical History Depression with anxiety Duodenal ulcer Fibromyalgia Gastritis Hx of LEEP (loop electrosurgical excision procedure) of cervix complicating Kidney stone Marijuana use Migraine headache Surgical History Surgical History History of cholecystectomy Social History Social History Social History: Surrogate medical decision maker: Lori Johnson, mother. Code status: Full code. Smoking packs per day: 0.5 Smoking cigarettes per day: 10.0 Years smoked: 24 Smoking pack-years: 12.00 Smoking status: Current every day smoker Tobacco type: cigarettes Alcohol intake: never Substance use: current Substance use type: marijuana Last use: 05/18/2024 Do You Feel Safe in your Home?: Yes Lack of Transportation: No Lack of Food: Never True Current Housing: I Have Housing Concerned About Future Housing: No Difficulty Paying Gas/Electric Bills: No Difficulty Paying for Meds: No Currently Unemployed: No Education: Don't Know Difficulty w/ Childcare or Family Care: No Living arrangements: alone Additional living arrangements comments: Lives with family in [place]. Additional occupation/education comments: Works at [employer]. Spiritual care concerns: No Anes - Eval Final PreProcedure Day of Procedure 06/01/24 10:37 Patient weight: normal Heart: regular rate and rhythm Lungs: clear to auscultation Airway: Mallampati scale class II and special considerations poor dentition Neurological: alert and oriented Last oral intake: >/= 8 hours ASA classification: III Emergent: no Anesthetic plan: proceed Ane
[2024-06-01] MEDS: LACTATED RINGERS 1,000 ML 150 ML IV CONT (10:40)
[2024-06-01 10:41] VITALS: BP 120/77; PULSE 89; RESP 16; TEMP 35.8; O2SAT 100; BMI 27.4
[2024-06-01 10:46] LABS: BEDSIDEPREGUCG Negative (Negative)
--- NOTE | 2024-06-01 10:51 | PM.HPGS ---
History of Present Illness History of Present Illness Consent: Risks, benefits, and alternatives have been discussed and questions answered. Patient agrees to proceed with procedure. Chief complaint: Duodenal ulcer, unspecified as acute or chronic Narrative: Corina Johnson is a 44 year old female with duodenal ulcer and gastritis, no h pylori, not longer using excedrin and taking ppi. Feeling better Review of Systems Review of Systems: All systems reviewed & are unremarkable except as noted in HPI and below PMFSH Past Medical History Medical History Depression with anxiety Duodenal ulcer Fibromyalgia Gastritis Hx of LEEP (loop electrosurgical excision procedure) of cervix complicating Kidney stone Marijuana use Migraine headache Surgical History Surgical History History of cholecystectomy Social History Social History Social History: Surrogate medical decision maker: Lori Johnson, mother. Code status: Full code. Smoking packs per day: 0.5 Smoking cigarettes per day: 10.0 Years smoked: 24 Smoking pack-years: 12.00 Smoking status: Current every day smoker Tobacco type: cigarettes Alcohol intake: never Substance use: current Substance use type: marijuana Last use: 05/18/2024 Do You Feel Safe in your Home?: Yes Lack of Transportation: No Lack of Food: Never True Current Housing: I Have Housing Concerned About Future Housing: No Difficulty Paying Gas/Electric Bills: No Difficulty Paying for Meds: No Currently Unemployed: No Education: Don't Know Difficulty w/ Childcare or Family Care: No Living arrangements: alone Additional living arrangements comments: Lives with family in [place]. Additional occupation/education comments: Works at [employer]. Spiritual care concerns: No Meds Home Medications and Allergies Home Medications Medication Instructions Recorded Confirmed Type alprazolam 1 mg tablet 1 mg PO QID PRN Anxiety 01/22/24 06/01/24 History fluoxetine 40 mg capsule 40 mg PO DAILY 01/22/24 06/01/24 History meloxicam 15 mg tablet 15 mg PO DAILY 03/04/24 06/01/24 History amitriptyline 50 mg tablet 75 mg PO DAILY #45 tabs 03/30/24 06/01/24 Rx dicyclomine 20 mg tablet 20 mg PO TID #90 tabs 03/30/24 06/01/24 Rx famotidine 40 mg tablet (Pepcid) 40 mg PO DAILY #30 tabs 03/30/24 06/01/24 Rx sucralfate 1 gram tablet 1 g PO TID PRN Stomach Upset #90 03/30/24 06/01/24 Rx tabs acetaminophen-caffeine 500 mg-65 1 tablet PO Q4H PRN Pain 04/16/24 06/01/24 History mg tablet (Excedrin Tension Headache) cyclobenzaprine 10 mg tablet 10 mg PO TID PRN muscle spasms #90 04/16/24 06/01/24 Rx tabs ondansetron HCl 8 mg tablet 8 mg PO Q8H PRN nausea and 04/16/24 06/01/24 Rx vomiting #20 tabs sumatriptan succinate 50 mg tablet See Rx Instructions PO .COMPLEX 04/16/24 06/01/24 Rx #14 tabs ferrous sulfate 325 mg (65 mg 325 mg PO DAILY #90 tabs 04/28/24 06/01/24 Rx iron) tablet,delayed release pantoprazole 40 mg tablet,delayed See Rx Instructions .Route 05/04/24 06/01/24 Rx release .COMPLEX #60 tabs hydrocodone 5 mg-acetaminophen 325 1 tablet PO BID PRN pain (scale 05/25/24 06/01/24 Rx mg tablet score 7-10) #60 tabs Allergies Allergy/AdvReac Type Severity Reaction Status Date / Time morphine Allergy Unknown Itching Verified 06/01/24 10:22 NSAIDS (Non-Steroidal Allergy Unknown Unknown Verified 06/01/24 10:22 Anti-Inflamma Vital Signs Vital Signs - 24 hr 06/01/24 10:41 Temperature 96.5 F L Pulse Rate 89 Respiratory Rate 16 Blood Pressure 120/77 Pulse Oximetry 100 Oxygen Delivery Room Air Exam Const: General: comfortable and no acute distress HENMT: Face/Nose/Sinus: Normal nares present Eyes: General: appearance normal, both eyes and all related structures Nec
[2024-06-01] MEDS: BENZOCAINE (*SP) 60 ML SPRAY CAN (HURRICAINE) 1 SPRAY MUCOUS MEM (10:55)
[2024-06-01 11:03] VITALS: BP 98/55; PULSE 69; RESP 18; O2SAT 100
[2024-06-01 11:13] VITALS: BP 114/63; PULSE 66; RESP 18; O2SAT 100
[2024-06-01 11:23] VITALS: BP 116/64; PULSE 67; RESP 18; O2SAT 100
== END 2024-06-01 11:36 | disposition home or self-care (01) ==
PROVIDERS: Anesthesiology; PCP Family Medicine Adolescent Medicine; Visit Provider Internal Medicine Gastroenterology
PROC: 0DJ08ZZ Inspection of Upper Intestinal Tract, Via Natural or Artificial Opening Endoscopic (ICD-10-PCS; CPT 43235; principal; 2024-06-01 11:30)
DX: K29.70 Gastritis, unspecified, without bleeding (principal); K26.9 Duodenal ulcer, unspecified as acute or chronic, without hemorrhage or perforation; F41.8 Other specified anxiety disorders; F17.210 Nicotine dependence, cigarettes, uncomplicated; F12.90 Cannabis use, unspecified, uncomplicated; Z79.891 Long term (current) use of opiate analgesic; Z98.890 Other specified postprocedural states; Z90.49 Acquired absence of other specified parts of digestive tract; Z87.442 Personal history of urinary calculi
CPT/HCPCS: 43235; J2003; J2704; J7120

== ENCOUNTER → 2024-10-28 14:03 | Outpatient (CLI) | payer OTHER, SELFPAY ==
--- NOTE | ~2024-10-28 | XR_ITS ---
Clinical Indication: Cough PA and lateral views of the chest: Comparison: None Findings: The lungs are clear, without evidence of focal consolidation or pleural effusion. Cardiome diastinal silhouette is within normal limits. Bones and soft tissues are unremarkable. Impression: Normal chest. Reviewed, dictated and finalized at location . Impression: Normal chest.
== END ==
LOC: EXPCRAD 14:05
PROVIDERS: PCP Family Medicine; Visit Provider Family Medicine
DX: R05.9 Cough, unspecified (principal)
CPT/HCPCS: 71046

== ENCOUNTER 2024-11-02 11:35 | Outpatient (CLI) | payer OTHER, SELFPAY ==
--- NOTE | 2024-11-02 12:02 | ECHO_ITS ---
Patient Info Name: Corina Johnson Age: 44 years : 1980 Gender: Female Ht: 68 in Wt: 190 lbs BSA: 2.05 m2 HR: 83 bpm BP: 116 / 90 mmHg Technical Quality: Fair Exam Date: 11/02/2024 12:48 PM Exam Location: Echo Lab Patient Status: Outpatient Admit Date: 11/02/2024 Staff Ordering Physician: Juanita Walkre DO Route Salesman And Driver: Helena Alfaro RDCS Attending Provider: Juanita Walker DO Referring Physician: Aaron JUAREZ; Exam Type: CA echo doppler color flow Study Info Indications I34.1 - Nonrheumatic mitral (valve) prolapse Complete two-dimensional, color flow and Doppler transthoracic echocardiogram is performed. Summary 1. Complete two-dimensional, color flow and Doppler transthoracic echocardiogram is performed. 2. Left ventricular chamber dimension is normal. 3. Left ventricular systolic function is normal, estimated at 60-65%. 4. The left ventricular diastolic function is grade I diastolic dysfunction. 5. E/e' 8 is minimally elevated. 6. Left atrial chamber dimension is mildly enlarged. 7. There is mild aortic valve regurgitation. 8. The mitral valve has mild anterior prolapse. 9. There is trace mitral valve regurgitation. Left Ventricle E/e' 8 is minimally elevated. Left ventricular chamber dimension is normal. Left ventricular systolic function is normal, estimated at 60-65%. The left ventricular diastolic function is grade I diastolic dysfunction. Right Ventricle Right ventricular chamber dimension is normal. Right ventricular systolic function is normal. Left Atria Left atrial chamber dimension is mildly enlarged. Right Atria Right atrial chamber dimension is normal. Aortic Valve The aortic valve is trileaflet. There is no aortic valve stenosis. There is mild aortic valve regurgitation. Pulmonic Valve There is no pulmonic regurgitation. Mitral Valve The mitral valve has mild anterior prolapse. There is no mitral valve stenosis. There is trace mitral valve regurgitation. Tricuspid Valve There is no tricuspid valve regurgitation. Pericardium/Pleural There is no pericardial effusion. Inferior Vena Cava Normal inferior vena cava with >50% collapse upon inspiration consistent with normal right atrial pressure, 5 mmHg. Aorta The aortic root size at the sinus of Valsalva is normal. Left Ventricular Outflow Tract Name Value Normal LVOT 2D LVOT Diameter 2.0 cm LVOT Doppler LVOT Peak Gradient 3 mmHg LVOT Mean Gradient 2 mmHg LVOT VTI 18 cm LVOT VTI/AV VTI Ratio 0.8 LVOT Stroke Volume 59 ml LVOT CO 4.5 l/min LVOT CI 2.2 l/min/m2 Pulmonic Valve Name Value Normal RVOT Doppler RVOT Peak Gradient 2 mmHg PV Doppler PV Peak Gradient 2 mmHg Mitral Valve Name Value Normal MV Doppler MV Decel [place] 251 cm/s2 MV PHT 70 ms MV Area (PHT) 3.1 cm2 4.0-5.0 MV Diastolic Function MV E Peak Velocity 61 cm/s MV A Peak Velocity 97 cm/s MV E/A 0.6 MV Decel Time 242 ms Tricuspid Valve Name Value Normal TV Regurgitation Doppler TR Peak Velocity 209 cm/s TR Peak Gradient 17 mmHg Estimated PAP/RSVP RA Pressure 5 mmHg <=5 PA Systolic Pressure 22 mmHg <36 RV Systolic Pressure 22 mmHg <36 Aorta Name Value Normal Ascending Aorta Ao Root Diameter (MM) 4.0 cm Ao Root Diam Index (MM) 1.9 cm/m2 Aortic Valve Name Value Normal AV Doppler AV Peak Velocity 122 cm/s AV Peak Gradient 6 mmHg AV Mean Gradient 3 mmHg AV VTI 22 cm AV Area (Cont Eq VTI) 2.7 cm2 >=3.0 AV Area (Cont Eq Edin) 2.3 cm2 AV Regurgitation 2D LVOT Area 3.3 cm2 AV Regurgitation Doppler AR Decel Time 1,972 ms AR Decel [place] 219 cm/s2 AR PHT 572 ms Ventricles Name Value Normal LV Dimensions 2D/MM IVS Diastolic Thickness (2D) 0.8 cm 0.6-1.0 IVS Diastole Thickness (MM) 0.9 cm 0.6-0.9 LVID Diastole (2D) 4.8 cm 3.8-5.2 LVID Diastole (MM) 6.2 cm 3.8-5.2 LVIW Diastolic Thickness (2D) 0.9 cm 0.6-0.9 LVIW Diastolic Thickness (MM) 0.9 cm 0.6-0.9 LVID Systole (2D) 3.7 cm 2.2-3.5 LVID Systole (MM) 4.6 cm 2.2-3.5 LVOT Diameter 2.0 cm LV Mass (2D Cubed) 142.50 g 67.00-162.00 LV Mass Index (2D Cubed) 69 g/m2 43-95 Relative Wall Thickness (2D) 0.39 LV Mass (MM Cubed) 221.85 g 67.00-162.00 LV Mass Index (MM Cubed) 108 g/m2 43-95 Relative Wall Thickness (MM) 0.30 LV Fractional Shortening/Ejection Fraction 2D/MM LV Fractional Shortening (2D) 23 % 27-45 LV Fractional Shortening (MM) 26 % 27-45 LV EF (MM Teicholz) 50 % 54-74 LV EF (2D Teicholz) 46 % 54-74 LV Diastolic Volume (4C MOD) 130 ml LV EF (4C MOD) 59 % LV Diastolic Volume (2C MOD) 120 ml LV EF (2C MOD) 63 % LV Diastolic Volume (BP MOD) 125 ml 46-106 LV Diastolic Volume Index (BP MOD) 61 ml/m2 29-61 LV Systolic Volume (BP MOD) 48 ml 14-42 LV Systolic Volume Index (BP MOD) 23 ml/m2 8-24 LV EF (BP MOD) 62 % 54-74 LV Diastolic Length (4C) 8.7 cm LV Systolic Length (4C) 7.8 cm LV Stroke Volume (4C MOD) 77 ml Atria Name Value Normal LA Dimensions LA Dimension (MM) 2.9 cm 2.7-3.8 LA Volume (4C A-L) 48 ml LA Volume (BP A-L) 55 ml RA Dimensions RA Area (4C) 14.7 cm2 <=18.0 Report Signatures
[2024-11-02 12:09] LABS: Anion Gap 10 mmol/L (4-12); Blood Urea Nitrogen 10 mg/dL (7-17); CRP < 0.5 mg/dL (<1.0); Calcium 9.2 mg/dL (8.4-10.2); Carbon Dioxide 23 mmol/L (22-30); Chloride 105 mmol/L (98-107); Estimated Glomerular Filt Rate > 60; Glucose 93 mg/dL (65-110); Sodium 138 mmol/L (137-145)
[2024-11-02 12:26] LABS: Erythrocyte Sedimentation Rate 21 mm/hr (0-20)
[2024-11-02 12:30] LABS: Rheumatoid Factor < 12.0 IU/ML (<12)
--- OUTSIDE RECORDS SUMMARY | 2024-11-02 13:41 | XMS_ITS | Referral Summary ---
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 Gender Identity Not on file Sexual Orientation Not on file Last Filed Vital Signs Vital Sign Reading Time Taken Comments Blood Pressure 128/79 06/04/2022 5:54 PM CDT Pulse 77 06/04/2022 5:54 PM CDT Temperature 36.7 C (98 F) 06/04/2022 2:30 PM CDT Respiratory Rate 18 06/04/2022 5:54 PM CDT Oxygen Saturation 98% 06/04/2022 7:36 PM CDT Inhaled Oxygen Concentration - - Weight 72.6 kg (160 lb) 06/04/2022 2:30 PM CDT Height 172.7 cm (5' 8 ) 06/04/2022 2:30 PM CDT Body Mass Index 24.33 06/04/2022 2:30 PM CDT Plan of Treatment Not on file Insurance IDPA IDPA Care Teams Bright Cutter Relationship Specialty Start Date End Date Xenia West MD [address] [place] [address] DR LUCAS [address] [place] [id number] PCP - General Family Medicine 06/04/22
--- OUTSIDE RECORDS SUMMARY | 2024-11-02 13:41 | XMS_ITS | Clinical Summary ---
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 Gender Identity Not on file Sexual Orientation Not on file Obstetrics History Last Filed Vital Signs Vital Sign Reading [...] 06/04/2022 2:30 PM CDT Plan of Treatment Health Maintenance Due Date Last Done Comments Breast Cancer Screening-Mammogram 1980 Cervical Cancer Screening 1980 Depression Screening 1980 Hepatitis C Screening 1980 DTaP/Tdap/Td Vaccine (1 - Tdap) 1992 Varicella Vaccines (1 of 2 - 13+ 2-dose series) 1994 Hepatitis B Screening 1999 Regular Well Visit/Exam 18-64 1999 Influenza Vaccine (#1) 2024 2, 06/13/2021, 06/22/2020, Additional history exists HPV Vaccines Aged Out No longer eligi ble based on patient's age to complete this topic Pneumococcal vaccine <65 Aged Out No longer eligible based on patient's age to complete this topic Insurance IDIA IDIA Care Teams Bicycle Rental Clerk Relationship Specialty Start Date End Date Xenia West MD [address] [place] [address] [place] [address] PCP - General Family Medicine 06/04/22
== END 2024-11-02 11:36 | disposition home or self-care (01) ==
PROVIDERS: PCP Family Medicine; Visit Provider Family Medicine
DX: I34.1 Nonrheumatic mitral (valve) prolapse (principal); I35.1 Nonrheumatic aortic (valve) insufficiency; R00.2 Palpitations; I51.89 Other ill-defined heart diseases; M25.50 Pain in unspecified joint; R19.7 Diarrhea, unspecified; E03.8 Other specified hypothyroidism
CPT/HCPCS: 36415; 80048; 84443; 85652; 86038; 86140; 86200; 86430; 93242; 93306

== ENCOUNTER 2025-03-29 17:13 | Emergency (ER) | payer OTHER, SELFPAY ==
[2025-03-29] VITALS (15 sets, daily range): BP systolic 111–142; BP diastolic 55–96; PULSE 96; RESP 20; TEMP 36.7; O2SAT 95–100
--- NOTE | ~2025-03-29 | CT_ITS ---
Non-contrast CT scan of the Abdomen and Pelvis Clinical indication: Flank pain Technique: 2.5 mm axial scans were obtained through the abdomen and pelvis without intravenous or oral contrast. Dose reduction technique was used on this scan by utilizing automated exposure control and iterative reconstruction technique. The dose-length product (DLP) was 244.71 mGy-cm. COMPARISON: 03/04/2024 Findings: Images through the lung bases reveal no abnormalities. Probable 2 mm stone at the right UVJ. No distinct right hydronephrosis. No other definite stones identified. No hydronephrosis. The liver, spleen, pancreas, and right adrenal gland appear normal. Cholecystectomy clips are present. Stable low-density left adrenal nodule present, compatible with adenoma. There is no aortic aneurysm. There is no evidence of bowel obstruction. Images through the pelvis were performed. There is no evidence of ascites or lymphadenopathy. Urinary bladder unremarkable. No pelvic mass seen. Impression: Probable 2 mm right UVJ stone, without hydronephrosis. Reviewed, dictated and finalized at [facility]. Impression: Probable 2 mm right UVJ stone, without hydronephrosis.
--- OUTSIDE RECORDS SUMMARY | 2025-03-29 17:16 | XMS_ITS | Clinical Summary ---
Author Organization 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 Gender Identity Not on file Sexual [...] 2:30 PM CDT Height 172.7 cm (5' 8) 06/04/2022 2:30 PM CDT Body Mass Index 24.33 06/04/2022 2:30 PM CDT Plan of Treatment Health Maintenance Due Date Last Done Comments Breast Cancer Screening-Mammogram 1980 Cervical Cancer Screening 1981 Depression Screening 1981 Hepatitis C Screening 1981 DTaP/Tdap/Td Vaccine (1 - Tdap) 1992 Varicella Vaccines (1 of 2 - 13+ 2-dose series) 1994 Hepatitis B Screening 1999 Regular Well Visit/Exam 18-64 1999 HPV Vaccines (1 - 3-dose SCDM series) 2008 Influenza Vaccine (#1) 2025 2, 06/13/2021, 06/22/2020, Additional history exists Pneumococcal vaccine <65 Aged Out No longer eligible based on patient's age to complete this topic Insurance IDTX IDTX Care Teams Shield Installer Relationship Specialty Start Date End Date Xenia West MD [address] [place] [address] [place] [id number] PCP - General Family Medicine 06/04/22
--- NOTE | 2025-03-29 18:04 | ED_ITS ---
HPI - Back Pain/Injury General Chief Complaint: Back Pain/Injury <Harmony Lawton PA-C - Last Filed: 03/30/25 10:42> Stated Complaint: kidney pain, nausea <Harmony Lawton PA-C - Last Filed: 03/30/25 10:42> Time Seen by Provider: 03/29/25 18:04 <Harmony Lawton PA-C - Last Filed: 03/30/25 10:42> Focused HPI: This is a 44 year old female that presents to the ER for left sided abdominal pain. Reports diarrhea, nausea, flank pain. Denies fevers, dysuria. GENERAL: Well-appearing, well-nourished, and in no acute distress. HEAD: Normocephalic, atraumatic. CHEST: Clear to auscultation. ?No respiratory distress. HEART: Regular rate and rhythm.? NEURO: ?Alert and oriented x3. Patient screened in triage and initial orders placed.? ?Additional care and disposition to be based upon?diagnostic testing and treatment. <Harmony Lawton PA-C - Last Filed: 03/30/25 10:42> History of Present Illness HPI Narrative: Agree with the above HPI <Juancarlos Vega MD - Last Filed: 03/30/25 02:34> Related Data Home Medications: Home Medications ?Medication ?Instructions ?Recorded ?Confirmed ?Last Taken ?Type acetaminophen-caffeine 500 mg-65 1 tablet PO Q4H PRN P ain 04/16/24 03/11/25 05/31/24 History mg tablet (Excedrin Tension Headache) <Harmony Lawton PA-C - Last Filed: 03/30/25 10:42> Allergies/Adverse Reactions: Allergies Allergy/AdvReac Type Severity Reaction Status Date / Time morphine Allergy Unknown Itching Verified 03/29/25 17:22 NSAIDS (Non-Steroidal Allergy Unknown Unknown Verified 03/29/25 17:22 Anti-Inflamma <Harmony Lawton PA-C - Last Filed: 03/30/25 10:42> Review of Systems 2 Review of Systems: All systems reviewed & are unremarkable except as noted in HPI and below <Juancarlos Vega MD - Last Filed: 03/30/25 02:34> PMFSH Past Medical History Medical History: Medical History (Updated 03/30/25 @ 01:27 by Juancarlos Vega MD) Controlled substance agreement broken UDS 01/2025 positive for Suboxone Opioid use disorder BMI 29.0-29.9,adult Chronic pain MVP (mitral valve prolapse) Hx of LEEP (loop electrosurgical excision procedure) of cervix complicating Migraine headache Kidney stone Marijuana use Gastritis Duodenal ulcer Fibromyalgia Depression with anxiety <Harmony Lawton PA-C - Last Filed: 03/30/25 10:42> Surgical History Surgical History: Surgical History History of cholecystectomy <Harmony Lawton PA-C - Last Filed: 03/30/25 10:42> Social History Social History: Social History Social History: Surrogate medical decision maker: Lori Johnson, mother. Code status: Full code. Smoking packs per day: 0.5 Smoking cigarettes per day: 10.0 Years smoked: 24 Smoking pack-years: 12.00 Smoking status: Current every day smoker Tobacco type: cigarettes Alcohol intake: never Substance use: current Substance use type: marijuana Last use: 05/18/2024 Do You Feel Safe in your Home?: Yes Lack of Transportation: No Lack of Food: Never True Current Housing: I Have Housing Concerned About Future Housing: No Difficulty Paying Gas/Electric Bills: No Difficulty Paying for Meds: No Currently Unemployed: No Education: Don't Know Difficulty w/ Childcare or Family Care: No Living arrangements: alone Additional living arrangements comments: Lives with family in [place]. Additional occupation/education comments: Works at [employer]. Spiritual care concerns: No <Harmony Lawton PA-C - Last Filed: 03/30/25 10:42> Exam 2 Narrative: APPEARANCE: Well appearing, no pain, no distress, well-nourished. HEAD: normocephalic, atraumatic. EYES: PERRLA/EOMI, conjunctivae clear. NOSE: Normal no drainage EARS:TMS clear with good light reflex. THROAT: Pharynx clear, no exudate. NECK: Supple. No adenopathy, no masses. RESPIRATORY: Airway patent, respirations nonlabored. Clear to auscultation bilaterally, no rales, rhonchi, wheezing. CARDIOVASCULAR: Regular rate and rhythm without murmurs rubs or gallops. ABDOMINAL: Right CVA tenderness to palpation MUSCULOSKELETAL: Moves all extremities. Strength/ROM intact, No edema, No calf tenderness. NEURO: Alert. Cranial nerves II through XII intact. Good gait. Good coordination SKIN: Warm, dry. Normal Color <Juancarlos Vega MD - Last Filed: 03/30/25 02:34> Course Vital Signs Vital signs: Vital Signs Temperature 98.1 F 03/29/25 17:20 Pulse Rate 96 03/29/25 17:20 Respiratory Rate 20 03/29/25 17:20 Blood Pressure 124/67 03/29/25 17:20 Pulse Oximetry 97 03/29/25 17:20 Oxygen Delivery Room Air 03/29/25 17:20 Temperature 97.8 F 03/30/25 01:38 Pulse Rate 97 03/30/25 01:38 Respiratory Rate 16 03/30/25 01:38 Blood Pressure 129/78 03/30/25 01:38 Pulse Oximetry 99 03/30/25 01:38 Oxygen Delivery Room Air 03/29/25 17:20 <Harmony Lawton PA-C - Last Filed: 03/30/25 10:42> Vital Signs Temperature 98.1 F 03/29/25 17:20 Pulse Rate 96 03/29/25 17:20 Respiratory Rate 20 03/29/25 17:20 Blood Pressure 124/67 03/29/25 17:20 Pulse Oximetry 97 03/29/25 17:20 Oxygen Delivery Room Air 03/29/25 17:20 Temperature 97.8 F 03/30/25 01:38 Pulse Rate 97 03/30/25 01:38 Respiratory Rate 16 03/30/25 01:38 Blood Pressure 129/78 03/30/25 01:38 Pulse Oximetry 99 03/30/25 01:38 Oxygen Delivery Room Air 03/29/25 17:20 <Juancarlos Vega MD - Last Filed: 03/30/25 02:34> MDM - Back Pain/Injury MDM Narrative Medical decision making narrative: 44-year-old female presents emergency department for evaluation for right lower quadrant pain. Patient is currently afebrile but does have a leukocytosis of 14.4 hemoglobin 11.3. Patient has no significant abnormalities on her CMP UA was positive for nitrates leukocyte esterase high red blood cells and high white blood cells with few squamous and high bacteria. Did show a possible 1 mm calculi the right UVJ. Patient was treated with 1 g IV Rocephin in the emergency department and patient was provided medications for pain control she did feel improved. Patient was in no distress at time of evaluation. Patient was updated the treatment plan and instruction for close follow-up. <Juancarlos Vega MD - Last Filed: 03/30/25 02:34> Differential Diagnosis Differential diagnosis: Likely lumbar radiculopathy, strain of lumbar region, renal colic and pyelonephritis <Juancarlos Vega MD - Last Filed: 03/30/25 02:34> Lab Data Attestation: I reviewed the patient's lab results. <Juancarlos Vega MD - Last Filed: 03/30/25 02:34> Result diagrams: 03/29/25 19:35 03/29/25 19:35 <Harmony Lawton PA-C - Last Filed: 03/30/25 10:42> Labs: Lab Results 03/29/25 03/29/25 03/29/25 Range/Units 19:35 21:16 21:18 WBC 14.4 H (4.5-10.0) K/mm3 RBC 3.98 L (4.2-5.4) M/mm3 Hgb 11.3 L (12.0-15.0) g/dL Hct 36.0 L (37.0-47.0) % MCV 90.5 (80-100) fl MCH 28.4 (26-34) pg MCHC 31.4 L (32-36) g/dl RDW 18.2 H (11.5-14.5) % Plt Count 388 H (150-375) k/mm3 MPV 10.1 (7.4-10.4) fl Immature Gran % (Auto) Not Reportable Neut % (Auto) Not Reportable Lymph % (Auto) Not Reportable [place] % (Auto) Not Reportable Eos % (Auto) Not Reportable Baso % (Auto) Not Reportable Lymph # (Auto) Not Reportable [place] # (Auto) Not Reportable Eos # (Auto) Not Reportable Baso # (Auto) Not Reportable Abs Immat Gran (auto) Not Reportable Absolute Neuts (auto) Not Reportable Absolute Nucleated RBC Not Reportable Total Counted 100 Neutrophils % (Manual) 53 (46-73) % Band Neutrophils % 0 (0-6) % Lymphocytes % (Manual) 39.0 (18-44) % Monocytes % (Manual) 7 (3-9) % Basophils % (Manual) 1 (0-1) % Nucleated RBC % Not Reportable Abs Neuts (Manual) 7.63 H (1.3-6.7) K/mm3 Abs Lymphs (Manual) 5.61 H (1.1-4.5) K/mm3 Abs Monocytes (Manual) 1.00 H (0.1-0.90) K/mm3 Abs Basophils (Manual) 0.14 H (0.0-0.1) K/mm3 Platelet Estimate Adequate (Adequate) Large Platelets Present Hypochromasia 1+ Anisocytosis 2+ Schistocytes None seen Sodium 141 (137-145) mmol/L Potassium 3.3 L (3.4-5.0) mmol/L Chloride 108 H (98-107) mmol/L Carbon Dioxide 23 (22-30) mmol/L Anion Gap 10 (4-12) mmol/L BUN 11 (7-17) mg/dL Creatinine 0.74 (0.7-1.0) mg/dL Estim Creat Clear Calc 86 ml/min Estimated GFR > 60 (59 - ) Glucose 103 (65-110) mg/dL Calcium 9.4 (8.4-10.2) mg/dL Total Bilirubin 0.3 (0.2-1.3) mg/dL AST 17 (14-36) U/L ALT 18 (6-35) U/L Alkaline Phosphatase 66 (38-126) U/L Total Protein 7.7 (6.3-8.2) g/dL Albumin 4.3 (3.5-5.1) g/dL Lipase 117 (23-300) U/L Urine Color Dark yellow (Yellow) Urine Appearance Cloudy H (Clear) Urine pH 5.5 (5.0-9.0) Ur Specific [place] 1.043 H (1.001-1.035) Urine Protein 1+ H (Negative) mg/dL Urine Glucose (UA) Negative (Negative) mg/dL Urine Ketones Trace H (Negative) mg/dL Ur Blood (Man) 2+ H (Negative) Urine Nitrate Positive H (Negative) Urine Bilirubin Negative (Negative) Urine Urobilinogen 1.0 (<2.0) mg/dL Leukocyte Esterase Rfl 1+ H (Negative) RUBY/UL Urine RBC 21-50 H (0-2) /hpf Urine WBC 21-50 H (0-3) /hpf Ur Squamous Epith Cells Few (Few) /hpf Calcium Oxalate Crystal Present (None) /hpf Urine Bacteria 4+ H /hpf Urine Casts 3-5 POC Urine HCG, Qual Negative (Negative) <Harmony Lawton PA-C - Last Filed: 03/30/25 10:42> Lab Results 03/29/25 03/29/25 03/29/25 Range/Units 19:35 21:16 21:18 WBC 14.4 H (4.5-10.0) K/mm3 RBC 3.98 L (4.2-5.4) M/mm3 Hgb 11.3 L (12.0-15.0) g/dL Hct 36.0 L (37.0-47.0) % MCV 90.5 (80-100) fl MCH 28.4 (26-34) pg MCHC 31.4 L (32-36) g/dl RDW 18.2 H (11.5-14.5) % Plt Count 388 H (150-375) k/mm3 MPV 10.1 (7.4-10.4) fl Immature Gran % (Auto) Not Reportable Neut % (Auto) Not Reportable Lymph % (Auto) Not Reportable [place] % (Auto) Not Reportable Eos % (Auto) Not Reportable Baso % (Auto) Not Reportable Lymph # (Auto) Not Reportable [place] # (Auto) Not Reportable Eos # (Auto) Not Reportable Baso # (Auto) Not Reportable Abs Immat Gran (auto) Not Reportable Absolute Neuts (auto) Not Reportable Absolute Nucleated RBC Not Reportable Total Counted 100 Neutrophils % (Manual) 53 (46-73) % Band Neutrophils % 0 (0-6) % Lymphocytes % (Manual) 39.0 (18-44) % Monocytes % (Manual) 7 (3-9) % Basophils % (Manual) 1 (0-1) % Nucleated RBC % Not Reportable Abs Neuts (Manual) 7.63 H (1.3-6.7) K/mm3 Abs Lymphs (Manual) 5.61 H (1.1-4.5) K/mm3 Abs Monocytes (Manual) 1.00 H (0.1-0.90) K/mm3 Abs Basophils (Manual) 0.14 H (0.0-0.1) K/mm3 Platelet Estimate Adequate (Adequate) Large Platelets Present Hypochromasia 1+ Anisocytosis 2+ Schistocytes None seen Sodium 141 (137-145) mmol/L Potassium 3.3 L (3.4-5.0) mmol/L Chloride 108 H (98-107) mmol/L Carbon Dioxide 23 (22-30) mmol/L Anion Gap 10 (4-12) mmol/L BUN 11 (7-17) mg/dL Creatinine 0.74 (0.7-1.0) mg/dL Estim Creat Clear Calc 86 ml/min Estimated GFR > 60 (59 - ) Glucose 103 (65-110) mg/dL Calcium 9.4 (8.4-10.2) mg/dL Total Bilirubin 0.3 (0.2-1.3) mg/dL AST 17 (14-36) U/L ALT 18 (6-35) U/L Alkaline Phosphatase 66 (38-126) U/L Total Protein 7.7 (6.3-8.2) g/dL Albumin 4.3 (3.5-5.1) g/dL Lipase 117 (23-300) U/L Urine Color Dark yellow (Yellow) Urine Appearance Cloudy H (Clear) Urine pH 5.5 (5.0-9.0) Ur Specific [place] 1.043 H (1.001-1.035) Urine Protein 1+ H (Negative) mg/dL Urine Glucose (UA) Negative (Negative) mg/dL Urine Ketones Trace H (Negative) mg/dL Ur Blood (Man) 2+ H (Negative) Urine Nitrate Positive H (Negative) Urine Bilirubin Negative (Negative) Urine Urobilinogen 1.0 (<2.0) mg/dL Leukocyte Esterase Rfl 1+ H (Negative) RUBY/UL Urine RBC 21-50 H (0-2) /hpf Urine WBC 21-50 H (0-3) /hpf Ur Squamous Epith Cells Few (Few) /hpf Calcium Oxalate Crystal Present (None) /hpf Urine Bacteria 4+ H /hpf Urine Casts 3-5 POC Urine HCG, Qual Negative (Negative) <Juancarlos Vega MD - Last Filed: 03/30/25 02:34> Imaging Data Radiologist's impression: Overnight read Possible 0.1 cm UVJ stone <Juancarlos Vega MD - Last Filed: 03/30/25 02:34> Critical Care Time Critical Care Time Critical Care Time: No <Harmony Lawton PA-C - Last Filed: 03/30/25 10:42> Discharge Plan Discharge Clinical Impression: Abnormal urinalysis, Calculus, ureteral <Harmony Lawton PA-C - Last Filed: 03/30/25 10:42> Patient Disposition: Home <Harmony Lawton PA-C - Last Filed: 03/30/25 10:42> Condition: Stable <Harmony Lawton PA-C - Last Filed: 03/30/25 10:42> Instructions: Antibiotic Form, Kidney Stones (ED), Urinary Tract Infection in Women (ED), Flank Pain (ED) <Harmony Lawton PA-C - Last Filed: 03/30/25 10:42> Additional Instructions: Antibiotic as directed until completed. Zofran as needed for nausea control. Medication for pain control as directed. Have close follow-up with your primary care physician <Harmony Lawton PA-C - Last Filed: 03/30/25 10:42> Patient Language: Estonian <Harmony Lawton PA-C - Last Filed: 03/30/25 10:42> Prescriptions: New cephalexin 500 mg capsule 500 mg PO Q8H 7 Days Qty: 21 0RF ondansetron 4 mg tablet,disintegrating 4 mg PO Q8H PRN (Reason: nausea and vomiting) Qty: 14 0RF tamsulosin [Flomax] 0.4 mg capsule 0.4 mg PO DAILY 14 Days Qty: 14 0RF hydrocodone-acetaminophen 5-325 mg tablet 1 tablet PO Q12H PRN (Reason: pain) Qty: 14 0RF No Action Excedrin Tension Headache 500-65 mg tablet 1 tablet PO Q4H PRN (Reason: Pain) sumatriptan succinate 50 mg tablet See Rx Instructions PO .COMPLEX Qty: 14 0RF Rx Instructions: take 1 tab at onset of headache; if no relief may repeat 1 tab after at least 2 hrs; max = 4 tabs/24 hr PO fluticasone propionate 50 mcg/actuation spray,suspension 1 spray intranasal DAILY Qty: 16 0RF Rx Instructions: administer into each nostril sucralfate 1 gram tablet 1 g PO TID PRN (Reason: Stomach Upset) Qty: 90 3RF triamcinolone acetonide 0.1 % cream 1 applic topical BID PRN (Reason: eczema ) Qty: 80 0RF Rx Instructions: Apply once or twice daily to affected areas for 2 to 4 weeks. You may need intermittent application once daily for 2 days per week for maintenance. metoprolol succinate 25 mg tablet extended release 24 hr 25 mg PO DAILY Qty: 30 5RF ondansetron 4 mg tablet,disintegrating 4 mg PO Q8H PRN (Reason: nausea and vomiting) Qty: 30 0RF cyclobenzaprine 10 mg tablet See Rx Instructions .ROUTE .COMPLEX Qty: 90 0RF Dose Instruction: Take 1 tablet by mouth three times daily as needed for muscle spasm Rx Instructions: Take 1 tablet by mouth three times daily as needed for muscle spasm dicyclomine 20 mg tablet See Rx Instructions .ROUTE .COMPLEX Qty: 90 3RF Dose Instruction: TAKE 1 TABLET BY MOUTH THREE TIMES DAILY Rx Instructions: TAKE 1 TABLET BY MOUTH THREE TIMES DAILY famotidine 40 mg tablet See Rx Instructions .ROUTE .COMPLEX Qty: 30 3RF Dose Instruction: Take 1 tablet by mouth once daily Rx Instructions: Take 1 tablet by mouth once daily pantoprazole 40 mg tablet,delayed release (DR/EC) See Rx Instructions .ROUTE .COMPLEX Qty: 60 3RF Dose Instruction: TAKE 1 TABLET BY MOUTH EVERY 12 HOURS Rx Instructions: TAKE 1 TABLET BY MOUTH EVERY 12 HOURS budesonide-formoterol [Symbicort] 80-4.5 mcg/actuation HFA aerosol inhaler 2 puff inhalation Q12H Qty: 10.2 0RF amitriptyline 100 mg tablet 100 mg PO QHS Qty: 90 0RF fluoxetine 40 mg capsule 40 mg PO DAILY Qty: 90 0RF aripiprazole 5 mg tablet 5 mg PO DAILY Qty: 90 0RF <Harmony Lawton PA-C - Last Filed: 03/30/25 10:42> Follow-up/Referrals: Steve Rice MD [Physician, Urology] Juanita Walker DO [Primary Care Provider, [facility]] <Harmony Lawton PA-C - Last Filed: 03/30/25 10:42>
[2025-03-29 19:43] LABS: Hematocrit 36.0 % (37.0-47.0); Hemoglobin 11.3 g/dL (12.0-15.0); Mean Corpuscular HGB Conc 31.4 g/dl (32-36); Mean Corpuscular Hemoglobin 28.4 pg (26-34); Mean Corpuscular Volume 90.5 fl (80-100); Platelet Count Result 388 k/mm3 (150-375); Red Blood Count 3.98 M/mm3 (4.2-5.4); White Blood Count 14.4 K/mm3 (4.5-10.0)
[2025-03-29 19:51] LABS: Alanine Aminotransferase 18 U/L (6-35); Albumin Level 4.3 g/dL (3.5-5.1); Alkaline Phosphatase 66 U/L (38-126); Anion Gap 10 mmol/L (4-12); Aspartate Amino Transferase 17 U/L (14-36); Bilirubin,Total 0.3 mg/dL (0.2-1.3); Blood Urea Nitrogen 11 mg/dL (7-17); Calcium 9.4 mg/dL (8.4-10.2); Carbon Dioxide 23 mmol/L (22-30); Chloride 108 mmol/L (98-107); Estimated CRCL calculation 86 ml/min; Estimated Glomerular Filt Rate > 60; Glucose 103 mg/dL (65-110); Lipase 117 U/L (23-300); Potassium 3.3 mmol/L (3.4-5.0); Sodium 141 mmol/L (137-145); Total Protein 7.7 g/dL (6.3-8.2)
[2025-03-29 20:12] LABS: Basophils Absolute Manual 0.14 K/mm3 (0.0-0.1); Basophils Percent Manual 1 % (0-1); Lymphocytes Absolute Manual 5.61 K/mm3 (1.1-4.5); Lymphocytes Percent Manual 39.0 % (18-44); Monocytes Absolute Manual 1.00 K/mm3 (0.1-0.90); Monocytes Percent Manual 7 % (3-9); Neutrophils Percent Manual 53 % (46-73); Schistocytes None Seen; Total Cells Counted 100
[2025-03-29 20:13] LABS: Anisocytosis 2+; Hypochromasia 1+
[2025-03-29 20:26] LABS: Band Neutrophils Percent 0 % (0-6); Neutrophils Absolute Manual 7.63 K/mm3 (1.3-6.7)
[2025-03-29 21:21] LABS: BEDSIDEPREGUCG Negative (Negative)
--- OUTSIDE RECORDS SUMMARY | 2025-03-29 21:31 | XMS_ITS | Clinical Summary ---
Author Organization [facility] Address [address] [place] [address] Care Team Providers Care Press Service Reader Name Role Phone Xenia West MD Primary Care Provider + Allergies Active Allergy Reactions Criticality Noted Date Comments Morphine Rash Medium 06/04/2022 Sulfa (Sulfonamide Antibiotics) Rash Medium 05/13 Social History Tobacco Use Types Packs/Day Years Used Date Smoking Tobacco: Never Assessed Comments No Sex and Gender Information Value Date Recorded Sex Assigned at Not on file Legal Sex Female 11:35 AM [employer] Gender Identity Not on file Sexual Orientation [...] patient's age to complete this topic Insurance IDAR IDAR Care Teams Press Service Reader Relationship Specialty Start Date End Date Xenia West MD [address] [place] [address] [place] [address] PCP - General Family Medicine 06/04/22
[2025-03-29 21:41] LABS: Add Urine Microscopic? YES; Appearance Urine Cloudy (Clear); Glucose Urine UA Negative (Negative); Leukocyte Esterase Ur 1+ LEU/UL (Negative); Nitrate Urine Positive (Negative); Specific Grav Ur 1.043 (1.001-1.035)
[2025-03-29] MEDS: HYDROmorphone HCL INJ (*CRX) 1 MG/ML SYR 0.5 MG IV PUSH (21:55)
[2025-03-29] MEDS: ONDANSETRON INJ 4 MG/2 ML VIAL IV PUSH (21:55)
[2025-03-29] MEDS: cefTRIAXone 1 GM in SODIUM CHLORIDE 0.9% IV 50 ML 100 ML IVPB (22:52)
[2025-03-29] MEDS: HYDROcodone/acetaminophen (*CRX) 5-325 MG TABLET 1 TAB PO (23:03)
[2025-03-30] VITALS (16 sets, daily range): BP systolic 111–131; BP diastolic 57–85; PULSE 97; RESP 16; TEMP 36.6; O2SAT 97–99
== END 2025-03-30 01:40 | disposition home or self-care (01) ==
PROVIDERS: Physician Assistant; Emergency Provider Emergency Medicine; PCP Family Medicine
DX: N20.1 Calculus of ureter (principal); R82.998 Other abnormal findings in urine; I34.1 Nonrheumatic mitral (valve) prolapse; M79.7 Fibromyalgia; F17.210 Nicotine dependence, cigarettes, uncomplicated; F41.8 Other specified anxiety disorders; Z87.442 Personal history of urinary calculi; Z79.899 Other long term (current) drug therapy
CPT/HCPCS: 36415; 74176; 80053; 81001; 81025; 83690; 85025; 87086; 96365; 96375; 99284; A9270; J0696; J1171; J2405

== ENCOUNTER 2025-05-31 09:49 | Emergency (ER) | payer OTHER, SELFPAY ==
--- NOTE | ~2025-05-31 | CT_ITS ---
EXAMINATION: CT abdomen pelvis w con DATE: 05/31/2025 13:01 INDICATION: Lower abdominal pain TECHNIQUE: Computed tomography (CT) of the abdomen and pelvis was performed with 100 mL Omnipaque-350 intravenous contrast. Automated exposure control and iterative reconstruction technique were employed. The dose-length product was 658.68 mGy-cm. COMPARISON: 03/29/2025 and 03/04/2024 and 04/14/2020 FINDINGS: Mild dependent atelectasis in bilateral lower lobes. Heart size is normal. No pericardial or pleural effusion. Common bile duct is mildly dilated to 9 mm and there is also mild to moderate intrahepatic biliary ductal dilation likely related to prior cholecystectomy with surgical clips at the gallbladder fossa. The degree of intrahepatic biliary ductal dilation has increased since 03/04/2024 although no distal obstructing stone or mass is appreciated. Spleen, pancreas and right adrenal gland are normal. No interval change in a 2 cm left adrenal adenoma which demonstrated diagnostic low-attenuation of -7 HU on the prior noncontrast CT. 10 mm exophytic cyst at the periphery of the right kidney. Kidneys are otherwise unremarkable with symmetric parenchymal enhancement and early contrast excretion becoming evident at the renal calyces. Bladder and anteverted uterus are normal. Bilateral tubal ligation rings along side the normal-appearing bilateral ovaries. Again seen is fatty infiltration of the wall of the proximal colon. Small bowel and appendix are normal. No bowel obstruction. No free intraperitoneal gas or fluid. No pathologically enlarged abdominal or pelvic lymphadenopathy. 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 There is a mild poststenotic dilation with chronic small dissection flap which can be seen dating back to 04/14/2020. Moderate lower thoracic spondylosis with chronic mild likely physiologic anterior wedging at T10-T12. IMPRESSION: 1. Mild extrahepatic and increasing mild to moderate intrahepatic biliary ductal dilation without evident obstructing stone or mass potentially related to prior cholecystectomy. Correlate with liver function tests and could consider further evaluation with MRCP as clinically indicated. 2. 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 Reviewed, dictated and finalized at location A. IMPRESSION: 1. Mild extrahepatic and increasing mild to moderate intrahepatic biliary ducta l dilation without evident obstructing stone or mass potentially related to mikal or cholecystectomy. Correlate with liver function tests and could consider furt her evaluation with MRCP as clinically indicated. 2. 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 There is poststenotic dilation o f the celiac axis with unchanged chronic dissection flap.
[2025-05-31 10:03] VITALS: BP 130/78; PULSE 87; RESP 18; TEMP 36.2; O2SAT 100
[2025-05-31 11:25] VITALS: O2SAT 100
[2025-05-31 11:26] VITALS: BP 111/80
[2025-05-31] MEDS: HYDROmorphone HCL INJ (*CRX) 1 MG/ML SYR 0.5 MG IV PUSH (11:50)
[2025-05-31] MEDS: ONDANSETRON INJ 4 MG/2 ML VIAL IV PUSH ×2 (11:50→15:54)
[2025-05-31] MEDS: SODIUM CHLORIDE 0.9% IV 1,000 ML 999 ML IV CONT (11:51)
[2025-05-31 11:57] LABS: Hematocrit 38.8 % (37.0-47.0); Hemoglobin 12.2 g/dL (12.0-15.0); Immature Granulocyte Percent A 0.4 % (0-0.5); Lymphocytes Absolute Auto 2.68 K/mm3 (0.9-3.2); Mean Corpuscular HGB Conc 31.4 g/dl (32-36); Mean Corpuscular Hemoglobin 29.9 pg (26-34); Mean Corpuscular Volume 95.1 fl (80-100); Nucleated Red Blood Cells Absolute Auto 0.000 K/mm3 (0.0-0.012); Nucleated Red Blood Cells Perc 0.0 % (0.0-0.2); Platelet Count Result 372 k/mm3 (150-375); Red Blood Count 4.08 M/mm3 (4.2-5.4); White Blood Count 11.2 K/mm3 (4.5-10.0)
[2025-05-31 12:07] LABS: Alanine Aminotransferase 17 U/L (6-35); Albumin Level 4.7 g/dL (3.5-5.1); Alkaline Phosphatase 87 U/L (38-126); Anion Gap 9 mmol/L (4-12); Aspartate Amino Transferase 29 U/L (14-36); Bilirubin,Total 0.8 mg/dL (0.2-1.3); Blood Urea Nitrogen 13 mg/dL (7-17); Calcium 9.2 mg/dL (8.4-10.2); Carbon Dioxide 24 mmol/L (22-30); Chloride 105 mmol/L (98-107); Estimated CRCL calculation 103 ml/min; Estimated Glomerular Filt Rate > 60; Glucose 97 mg/dL (65-110); Lipase 49 U/L (23-300); Potassium 4.8 mmol/L (3.4-5.0); Sodium 138 mmol/L (137-145); Total Protein 8.4 g/dL (6.3-8.2)
--- NOTE | 2025-05-31 12:08 | ED.GENADULT ---
HPI - General Adult General Chief complaint: Nausea/Vomiting/Diarrhea Stated complaint: n/v bodyaches Time Seen by Provider: 05/31/25 11:17 History of Present Illness HPI narrative: Patient is a 45-year-old female who presents ER with nausea vomiting. Ongoing for 3 days. Associated with body aches as well as diarrhea. She has cramping abdominal discomfort. No known sick contacts but she has been at the hospital visiting a friend of hers in the ICU. Patient reports mild frontal throbbing headache. Has history of migraines. Patient has had no antiemetics at home. No urinary symptoms. Related Data Home Medications ?Medication ?Instructions ?Recorded ?Confirmed ?Last Taken ?Type acetaminophen-caffeine 500 mg-65 1 tablet PO Q4H PRN Pain 04/16/24 05/13/25 05/31/24 History mg tablet (Excedrin Tension Headache) Allergies Allergy/AdvReac Type Severity Reaction Status Date / Time cephalexin Allergy Mild Itching Verified 05/31/25 10:03 morphine Allergy Unknown Itching Verified 05/31/25 10:03 NSAIDS (Non-Steroidal Allergy Unknown Unknown Verified 05/31/25 10:03 Anti-Inflamma Review of Systems Review of Systems: All systems reviewed & are unremarkable except as noted in HPI and below Constitutional: Constitutional: Reports no additional constitutional complaints Cardiovascular: Cardiovascular: Reports no additional cardiovascular complaints Respiratory: Respiratory: Reports no additional respiratory complaints Gastrointestinal: Gastrointestinal: Reports no additional gastrointestinal complaints Integumentary/Breasts: Skin/Breast: Reports system reviewed and no additional complaints, except as docu PMFSH Past Medical History Medical History Controlled substance agreement broken [facility] 01/2025 positive for Suboxone Opioid use disorder BMI 29.0-29.9,adult Chronic pain MVP (mitral valve prolapse) Hx of LEEP (loop electrosurgical excision procedure) of cervix complicating Migraine headache Kidney stone Marijuana use Gastritis Duodenal ulcer Fibromyalgia Depression with anxiety Surgical History Surgical History History of cholecystectomy Social History Social History Social History: Surrogate medical decision maker: Lori Johnson, mother. Code status: Full code. Smoking packs per day: 0.5 Smoking cigarettes per day: 10.0 Years smoked: 24 Smoking pack-years: 12.00 Smoking status: Current every day smoker Tobacco type: cigarettes Alcohol intake: never Substance use: current Substance use type: marijuana Last use: 05/18/2024 Do You Feel Safe in your Home?: Yes Lack of Transportation: No Lack of Food: Never True Current Housing: I Have Housing Concerned About Future Housing: No Difficulty Paying Gas/Electric Bills: No Difficulty Paying for Meds: No Currently Unemployed: No Education: Don't Know Difficulty w/ Childcare or Family Care: No Living arrangements: alone Additional living arrangements comments: Lives with family in [place]. Additional occupation/education comments: Works at [employer]. Spiritual care concerns: No Exam Narrative: GENERAL: Fatigued-appearing, well-nourished, and in no acute distress. HEAD: Normocephalic, atraumatic. ENT: Mucous membranes moist. NECK: Supple. CHEST: Clear to auscultation. No respiratory distress. HEART: Regular rate and rhythm. Normal peripheral pulses. ABDOMEN: Soft, nontender, nondistended. EXTREMITIES: Normal range of motion. No edema. SKIN: Warm, dry, no rash. NEURO: Alert and oriented x3. PSYCH: Normal mood and affect. Course Course Emergency Course: Labs and imaging reviewed. Pain is left-sided and felt likely be related UTI potentially beginning to ascend towards the kidney. Discharge home with oral antibiotic as well as antiemetics and some pain control. Vital Signs Vital signs: Vital Signs Temperature 97.1 F L 05/31/25 10:03 Pulse Rate 87 05/31/25 10:03 Respiratory Rate 18 05/31/25 10:03 Blood Pressure 130/78 05/31/25 10:03 Pulse Oximetry 100 05/31/25 10:03 Oxygen Delivery Room Air 05/31/25 10:03 Temperature 97.1 F L 05/31/25 10:03 Pulse Rate 87 05/31/25 10:03 Respiratory Rate 18 05/31/25 10:03 Blood Pressure 111/80 05/31/25 11:26 Pulse Oximetry 100 05/31/25 11:25 Oxygen Delivery Room Air 05/31/25 10:03 Medical Decision Making Vital Signs Vital Signs: Vital Signs Temperature 97.1 F L 05/31/25 10:03 Pulse Rate 87 05/31/25 10:03 Respiratory Rate 18 05/31/25 10:03 Blood Pressure 130/78 05/31/25 10:03 Pulse Oximetry 100 05/31/25 10:03 Oxygen Delivery Room Air 05/31/25 10:03 Temperature 97.1 F L 05/31/25 10:03 Pulse Rate 87 05/31/25 10:03 Respiratory Rate 18 05/31/25 10:03 Blood Pressure 111/80 05/31/25 11:26 Pulse Oximetry 100 05/31/25 11:25 Oxygen Delivery Room Air 05/31/25 10:03 Lab Data 05/31/25 11:50 05/31/25 11:50 Labs: Lab Results 05/31/25 Range/Units 11:50 WBC 11.2 H (4.5-10.0) K/mm3 RBC 4.08 L (4.2-5.4) M/mm3 Hgb 12.2 (12.0-15.0) g/dL Hct 38.8 (37.0-47.0) % MCV 95.1 (80-100) fl MCH 29.9 (26-34) pg MCHC 31.4 L (32-36) g/dl RDW 16.4 H (11.5-14.5) % Plt Count 372 (150-375) k/mm3 MPV 10.0 (7.4-10.4) fl Immature Gran % (Auto) 0.4 (0-0.5) % Neut % (Auto) 66.7 (45.5-73.1) % Lymph % (Auto) 23.9 (18.3-44.2) % [place] % (Auto) 7.7 (2.6-8.5) % Eos % (Auto) 0.7 (0-4.4) % Baso % (Auto) 0.6 (0.2-1.2) % Lymph # (Auto) 2.68 (0.9-3.2) K/mm3 [place] # (Auto) 0.9 H (0.1-0.6) K/mm3 Eos # (Auto) 0.1 (0-0.3) K/mm3 Baso # (Auto) 0.1 (0.0-0.1) K/mm3 Abs Immat Gran (auto) 0.04 H (0.00-0.031) K/mm3 Absolute Neuts (auto) 7.5 H (1.3-6.7) K/mm3 Absolute Nucleated RBC 0.000 (0.0-0.012) K/mm3 Nucleated RBC % 0.0 (0.0-0.2) % Sodium 138 (137-145) mmol/L Potassium 4.8 (3.4-5.0) mmol/L Chloride 105 (98-107) mmol/L Carbon Dioxide 24 (22-30) mmol/L Anion Gap 9 (4-12) mmol/L BUN 13 (7-17) mg/dL Creatinine 0.68 L (0.7-1.0) mg/dL Estim Creat Clear Calc 103 ml/min Estimated GFR > 60 (59 - ) Glucose 97 (65-110) mg/dL Calcium 9.2 (8.4-10.2) mg/dL Total Bilirubin 0.8 (0.2-1.3) mg/dL AST 29 (14-36) U/L ALT 17 (6-35) U/L Alkaline Phosphatase 87 (38-126) U/L Total Protein 8.4 H (6.3-8.2) g/dL Albumin 4.7 (3.5-5.1) g/dL Lipase 49 (23-300) U/L Urine Color Dark yellow (Yellow) Urine Appearance Turbid H (Clear) Urine pH 5.5 (5.0-9.0) Ur Specific [place] 1.040 H (1.001-1.035) Urine Protein 1+ H (Negative) mg/dL Urine Glucose (UA) Negative (Negative) mg/dL Urine Ketones Trace H (Negative) mg/dL Ur Blood (Man) 2+ H (Negative) Urine Nitrate Negative (Negative) Urine Bilirubin 2+ H (Negative) Urine Urobilinogen 1.0 (<2.0) mg/dL Add Ur Microanalysis Reviewed Leukocyte Esterase Rfl 1+ H (Negative) RUBY/UL Urine RBC 21-50 H (0-2) /hpf Urine WBC 21-50 H (0-3) /hpf Ur Squamous Epith Cells Moderate (Few) /hpf Urine Bacteria 3+ H /hpf Urine Casts 3-5 Imaging Data Radiologist's impression: ITS Impressions Abdomen/Pelvis CT 05/31/25 13:13 IMPRESSION: 1. Mild extrahepatic and increasing mild to moderate intrahepatic biliary ductal dilation without evident obstructing stone or mass potentially related to prior cholecystectomy. Correlate with liver function tests and could consider further evaluation with MRCP as clinically indicated. 2. 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 Discharge Plan Discharge Clinical Impression: UTI (urinary tract infection) Patient Disposition: Home Condition: Stable Instructions: Urinary Tract Infection in Women (ED), Acute Nausea and Vomiting (ED) Additional Instructions: You should return to the emergency department if you develop severe nausea and vomiting and are unable to keep liquids down, if you develop severe back/flank or stomach pain, or if your symptoms are not clearly improving at home. Patient Language: Serbian Prescriptions: New sulfamethoxazole-trimethoprim [Bactrim DS] 800-160 mg tablet 1 tablet PO Q12H Qty: 14 0RF ondansetron 4 mg tablet,disintegrating 4 mg PO Q6H PRN (Reason: nausea and vomiting) Qty: 10 0RF No Action Excedrin Tension Headache 500-65 mg tablet 1 tablet PO Q4H PRN (Reason: Pain) fluconazole 150 mg tablet 150 mg PO ONCE Qty: 2 0RF Rx Instructions: As a single dose. You may take a second dose 72 hours after the first dose. fluoxetine 40 mg capsule 40 mg PO DAILY Qty: 90 0RF metoprolol succinate 25 mg tablet extended release 24 hr 25 mg PO DAILY Qty: 90 0RF budesonide-formoterol [Symbicort] 80-4.5 mcg/actuation HFA aerosol inhaler 2 puff inhalation Q12H Qty: 10.2 0RF ondansetron 4 mg tablet,disintegrating 4 mg PO Q8H PRN (Reason: nausea and vomiting) Qty: 14 0RF dicyclomine 20 mg tablet See Rx Instructions .ROUTE .COMPLEX Qty: 90 3RF Dose Instruction: TAKE 1 TABLET BY MOUTH THREE TIMES DAILY Rx Instructions: TAKE 1 TABLET BY MOUTH THREE TIMES DAILY famotidine 40 mg tablet See Rx Instructions .ROUTE .COMPLEX Qty: 30 3RF Dose Instruction: Take 1 tablet by mouth once daily Rx Instructions: Take 1 tablet by mouth once daily pantoprazole 40 mg tablet,delayed release (DR/EC) See Rx Instructions .ROUTE .COMPLEX Qty: 60 3RF Dose Instruction: TAKE 1 TABLET BY MOUTH EVERY 12 HOURS Rx Instructions: TAKE 1 TABLET BY MOUTH EVERY 12 HOURS amitriptyline 100 mg tablet 100 mg PO QHS Qty: 90 0RF aripiprazole 5 mg tablet 5 mg PO DAILY Qty: 90 0RF cyclobenzaprine 10 mg tablet See Rx Instructions .ROUTE .COMPLEX Qty: 90 0RF Dose Instruction: Take 1 tablet by mouth three times daily as needed for muscle spasm Rx Instructions: Take 1 tablet by mouth three times daily as needed for muscle spasm Follow-up/Referrals: Juanita Walker DO [Primary Care Provider, Family Practice] - 1 Week
[2025-05-31 12:10] LABS: Add Urine Microscopic? YES; Appearance Urine Turbid (Clear); Glucose Urine UA Negative (Negative); Leukocyte Esterase Ur 1+ LEU/UL (Negative); Need Manual Microscopic Reviewed; Nitrate Urine Negative (Negative); Specific Grav Ur 1.040 (1.001-1.035)
[2025-05-31 14:55] VITALS: BP 109/62; O2SAT 99
[2025-05-31 15:34] VITALS: O2SAT 99
[2025-05-31 15:52] VITALS: BP 103/70; O2SAT 98
[2025-05-31] MEDS: HYDROcodone/acetaminophen (*CRX) 5-325 MG TABLET 1 TAB PO (15:54)
== END 2025-05-31 16:12 | disposition home or self-care (01) ==
PROVIDERS: Emergency Provider Emergency Medicine; PCP Family Medicine
DX: N39.0 Urinary tract infection, site not specified (principal); F17.210 Nicotine dependence, cigarettes, uncomplicated; F41.9 Anxiety disorder, unspecified; F32.A Depression, unspecified; M79.7 Fibromyalgia; Z87.442 Personal history of urinary calculi
CPT/HCPCS: 36415; 74177; 80053; 81001; 83690; 85025; 96361; 96374; 96375; 96376; 99284; A9270; J1171; J2405; J7030; Q9967